=== PATIENT | female | born 1965 | race Caucasian/White ===

== ENCOUNTER 2017-07-03 00:50 | Emergency (ER) | payer SELFPAY ==
[2017-07-03] MEDS ORDERED: ASPIRIN 81 MG TABLET, CHEWABLE PO ONE (01:15)
[2017-07-03] MEDS ORDERED: FENTANYL CITRATE INJ/PF 100 MCG/2 ML AMPUL IV ONE (01:15)
[2017-07-03] MEDS ORDERED: DIAZEPAM INJ 10 MG/2 ML DISP.SYRIN IV ONE (01:15)
[2017-07-03] MEDS ORDERED: ONDANSETRON 4 MG TAB.RAPDIS PO ONE (01:16)
--- NOTE | 2017-07-03 01:22 | ER Document Report ---
ED Cardiac - General Chief Complaint: Chest Pain Stated Complaint: CHEST PAIN Time Seen by Provider: 07/03/17 01:15 Mode of Arrival: Carried Information source: Patient Notes: History of present illnes-52 years old female while mom being developed pain over the left side of the chest wall which include left anterior chest wall left upper back and left arm associated with on and off numbness and tingling sensation. Denied any nausea vomiting palpitation or diaphoresis. Called the EMS and came to the ER. She has a history of fibromyalgia take [place]. REVIEW OF SYSTEMS: CONSTITUTIONAL : Denies fever, chills, or sweats. Denies recent illness. EENT: Denies eye, ear, throat, or mouth pain or symptoms. Denies nasal or sinus congestion or discharge. Denies throat, tongue, or mouth swelling or difficulty swallowing. CARDIOVASCULAR: Denies chest pain. Denies palpitations or racing or irregular heart beat. Denies ankle edema. RESPIRATORY: Denies cough, cold, or chest congestion. Denies shortness of breath, difficulty breathing, or wheezing. GASTROINTESTINAL: Denies abdominal pain or distention. Denies nausea, vomiting , or diarrhea. Denies blood in vomitus, stools, or per rectum. Denies black, tarry stools. Denies constipation. GENITOURINARY: Denies difficulty urinating, painful urination, burning, frequency, blood in urine, or discharge. FEMALE GENITOURINARY: Denies vaginal bleeding, heavy or abnormal periods, irregular periods. Denies vaginal discharge or odor. MUSCULOSKELETAL: Denies back or neck pain or stiffness. Denies joint pain or swelling. SKIN: Denies rash, lesions or sores. HEMATOLOGIC : Denies easy bruising or bleeding. LYMPHATIC: Denies swollen, enlarged glands. NEUROLOGICAL: Denies confusion or altered mental status. Denies passing out or loss of consciousness. Denies dizziness or lightheadedness. Denies headache. Denies weakness or paralysis or loss of use of either side. Denies problems with gait or speech. Denies sensory loss, numbness, or tingling. Denies seizures. PSYCHIATRIC: Denies anxiety or stress. Denies depression, suicidal ideation, or homicidal ideation. ALL OTHER SYSTEMS REVIEWED AND NEGATIVE. PHYSICAL EXAMINATION: GENERAL: Well-appearing, well-nourished and in no acute distress. HEAD: Atraumatic, normocephalic. EYES: Pupils equal round and reactive to light, extraocular movements intact, conjunctiva are normal. ENT: Nares patent, oropharynx clear without exudates. Moist mucous membranes. NECK: Normal range of motion, supple without lymphadenopathy LUNGS: Breath sounds clear to auscultation bilaterally and equal. No wheezes rales or rhonchi. HEART: Regular rate and rhythm without murmurs Chest wall-diffuse chest wall tenderness noted along the left trapezoid muscle distribution, subscapular muscular region to. The tenderness progressed to the anterior chest wall involving the upper sternocostal joints. Lifting of left arm increases the pain and discomfort. Even with medium strength of palpation the pain was severe in nature. ABDOMEN: Soft, nontender, nondistended abdomen. No guarding, no rebound. No masses appreciated. Female : deferred Musculoskeletal: Normal range of motion, no pitting or edema. No cyanosis. NEUROLOGICAL: Cranial nerves grossly intact. Normal speech, normal gait. Normal sensory, motor exams PSYCH: Normal mood, normal affect. SKIN: Warm, Dry, normal turgor, no rashes or lesions noted. Dictation was performed using [email or web address] voice recognition software - Related Data Allergies/Adverse Reactions: aspirin Allergy (Unknown, Verified 07/03/17 01:27) cephalexin [From Keflex] Allergy (Unknown, Verified 07/03/17 01:27) Past Medical History - General Information source: Patient - Social History Smoking Status: Current Every Day Smoker Cigarette use (# per day): No Chew tobacco use (# tins/day): No Frequency of alcohol use: Rare Drug Abuse: None Lives with: Family Family History: Reviewed & Not Pertinent Patient has suicidal ideation: No Past Surgical History: Reports: None Review of Systems - Review of Systems Notes: As per history of complain Course - Re-evaluation Re-evalutation: 07/03/17 03:15 Given Valium as well as fentanyl - Laboratory Result Diagrams: 07/03/17 00:23 07/03/17 00:23 Laboratory results interpreted by me: 07/03/17 07/03/17 00:23 00:23 WBC 11.2 H Potassium 3.4 L Glucose 342 H Alkaline Phosphatase 164 H - Diagnostic Test Radiology reviewed: Reports reviewed - Chest x-ray reported by radiologist as normal. - EKG Interpretation by Me EKG shows normal: Sinus rhythm Rate: Normal Rhythm: NSR - Sinus rhythm at the rate of 80 bpm normal axis no acute ST elevation ST depression T-wave inversion. Normal cardiogram Discharge - Discharge Clinical Impression: Chest wall pain Trapezius strain Qualifiers: Encounter type: initial encounter Laterality: left Qualified Code(s): S46.812A - Strain of other muscles, fascia and tendons at shoulder and upper arm level, left arm, initial encounter Condition: Fair Disposition: HOME, SELF-CARE Instructions: Chest Wall Pain ([facility]) Prescriptions: Diazepam [Valium 2 mg Tablet] 2 mg PO BID PRN #10 tablet PRN Reason: Hydrocodone/Acetaminophen [[place] 10-325 Tablet] 1 each PO TID PRN #10 tablet PRN Reason:
[2017-07-03 01:25] LABS: ABSOLUTE EOSINOPHILS # (AUTO) 0.2 10^3/uL (0.0-0.6); ABSOLUTE LYMPHOCYTES (AUTO) 2.5 10^3/uL (0.5-4.7); ABSOLUTE MONOCYTES (AUTO) 0.5 10^3/uL (0.1-1.4); BASOPHILS % (AUTO) 0.4 % (0-2); HEMATOCRIT 40.8 % (36.0-47.0); HEMOGLOBIN 13.9 g/dL (12.0-15.5); LYMPHOCYTES % (AUTO) 22.3 % (13-45); MEAN CORPUSCULAR HEMOGLOBIN 27.4 pg (27.0-33.4); MEAN CORPUSCULAR VOLUME 81 fl (80-97); MONOCYTES % (AUTO) 4.1 % (3-13); PLATELET COUNT 207 10^3/uL (150-450); RED BLOOD COUNT 5.06 10^6/uL (3.72-5.28); RED CELL DISTRIBUTION WIDTH 13.3 % (11.5-14.0); SEGMENTED NEUTROPHILS % (AUTO) 71.2 % (42-78); TOTAL CELLS COUNTED % (AUTO) 100 %; WHITE BLOOD COUNT 11.2 10^3/uL (4.0-10.5)
[2017-07-03 01:40] LABS: ALANINE AMINOTRANSFERASE 28 U/L (9-52); ALBUMIN 4.3 g/dL (3.5-5.0); ALKALINE PHOSPHATASE 164 U/L (38-126); ANION GAP 13 (5-19); ASPARTATE AMINO TRANSFERASE 17 U/L (14-36); BILIRUBIN,DIRECT 0.3 mg/dL (0.0-0.4); BILIRUBIN,TOTAL 0.4 mg/dL (0.2-1.3); BLOOD UREA NITROGEN 17 mg/dL (7-20); CALCIUM 9.7 mg/dL (8.4-10.2); CARBON DIOXIDE 25 mmol/L (22-30); CHLORIDE 101 mmol/L (98-107); CREATINE KINASE 80 U/L (30-135); GLUCOSE 342 mg/dL (75-110); POTASSIUM 3.4 mmol/L (3.6-5.0); SODIUM 139.2 mmol/L (137-145); TOTAL PROTEIN 7.2 g/dL (6.3-8.2)
[2017-07-03 01:52] LABS: CREATINE KINASE MB 0.79 ng/mL (<4.55); TROPONIN I < 0.012 ng/mL
--- NOTE | 2017-07-03 02:30 | RADIOLOGY REPORT (SQ) ---
EXAM DESCRIPTION: CHEST SINGLE VIEW CLINICAL HISTORY: 52 years Female, Chest pain COMPARISON: None. NUMBER OF VIEWS/TECHNIQUE: 1/AP LIMITATIONS: None. FINDINGS: Normal lung volume, clear parenchyma, normal cardiac silhouette, and intact bony thorax. IMPRESSION: No acute cardiopulmonary findings.
[2017-07-03 04:24] VITALS: BP 157/73
--- NOTE | 2017-07-03 07:43 | EKG REPORT ---
SEVERITY:- ABNORMAL ECG - SINUS RHYTHM POOR R [place]AV[place] PROGRESSION ANTERIOR PRECORDIAL LEADS ? LEAD PLACEMENT VS OLD NE, NO OLD EKG TO COMPARE, CLINICAL CORRELATION NEEDED. : Confirmed by: Armen Iverson MD 03-Jul-2017 07:42:41
== END 2017-07-03 03:30 | disposition home or self-care (01) ==
LOC: ER 00:50
DX: S46.812A Strain of other muscles, fascia and tendons at shoulder and upper arm level, left arm, initial encounter (principal); R07.89 Other chest pain; M54.6 Pain in thoracic spine; M79.602 Pain in left arm; M79.7 Fibromyalgia; Z79.899 Other long term (current) drug therapy; F17.200 Nicotine dependence, unspecified, uncomplicated; X58.XXXA Exposure to other specified factors, initial encounter
CPT/HCPCS: 93005; 99285; 96374; 96375; 36415; 82553; 82550; 85025; 80053; 84484; 71045; 93010; J3360; S0119; J3010

== ENCOUNTER 2017-07-12 21:22 | Emergency (ER) | payer SELFPAY ==
--- NOTE | 2017-07-12 21:29 | ER Document Report ---
ED Medical Screen (RME) - General Mode of Arrival: Medic Information source: Relative - , Emergency Med Personnel TRAVEL OUTSIDE OF THE [place] IN LAST 30 DAYS: No <ABRAHAM RIVERS - Last Filed: 07/13/17 00:13> <JORGE ALBERTO VALERIO - Last Filed: 07/13/17 00:14> - General Chief Complaint: S/S of Possible Stroke Stated Complaint: POSSIBLE STROKE Time Seen by Provider: 07/12/17 21:24 Notes: 52 y.o female presents to the ED via EMS s/p collapse onto at home. reported that she has falled/collapsed in the past due to her BGL but it has never been this bad before. EMS reports a BGL of 345. (ABRAHAM RIVERS) - Related Data Allergies/Adverse Reactions: aspirin Allergy (Unknown, Verified 07/03/17 01:27) cephalexin [From Keflex] Allergy (Unknown, Verified 07/03/17 01:27) Past Medical History - General Information source: Relative Neurological Medical History: Reports: Hx Seizures Renal/ Medical History: Denies: Hx Peritoneal Dialysis Past Surgical History: Reports: Hx Section <ABRAHAM RIVERS - Last Filed: 07/13/17 00:13> Review of Systems - Review of Systems Constitutional: See HPI - Collapsed Neurological/Psychological: See HPI, Other - collapsed, "similar to when her BGL is low but worse" <ABRAHAM RIVERS - Last Filed: 07/13/17 00:13> Physical Exam <ABRAHAM RIVERS - Last Filed: 07/13/17 00:13> <JORGE ALBERTO VALERIO - Last Filed: 07/13/17 00:14> - Vital signs Vitals: Resp BP Pulse Ox 21 H 197/99 H 93 07/12/17 21:41 07/12/17 21:41 07/12/17 21:41 - Notes Notes: Pt maintaining airway, no respiratory distress, tongue midline. (ABRAHAM RIVERS ) Course - Laboratory Result Diagrams: 07/12/17 22:00 07/12/17 22:00 <ABRAHAM RIVERS - Last Filed: 07/13/17 00:13> - Laboratory Result Diagrams: 07/12/17 22:00 07/12/17 22:00 <JORGE ALBERTO VALERIO - Last Filed: 07/13/17 00:14> - Re-evaluation Re-evalutation: 07/13/17 00:14 Patient examined from the stretcher on her way to CAT scan, maintaining her airway well, no evidence of impending airway collapse. Sent to CAT scan, further evaluation will be performed by primary physician after CAT scan completed. (JORGE ALBERTO VALERIO) - Vital Signs Vital signs: Temp Pulse Resp BP Pulse Ox 81 18 161/109 H 98 07/12/17 23:00 07/12/17 23:11 07/12/17 23:11 07/12/17 23:11 - Laboratory Laboratory results interpreted by me: 07/12/17 07/12/17 22:00 22:00 WBC 11.9 H RBC 5.39 H Absolute Neutrophils 8.5 H Potassium 3.3 L Glucose 334 H Doctor's Discharge <ABRAHAM RIVERS - Last Filed: 07/13/17 00:13> <JORGE ALBERTO VALERIO - Last Filed: 07/13/17 00:14> - Discharge Clinical Impression: Acute ischemic stroke Condition: Critical Disposition: [facility] Scribe Documentation - Scribe Written by Scribe:: Johnie Lennon 07/12/2017 2221 acting as scribe for :: Keli <ABRAHAM RIVERS - Last Filed: 07/13/17 00:13>
[2017-07-12] MEDS ORDERED: LABETALOL HCL INJ 20 MG/4 ML DISP.SYRIN IV ONE (21:38)
--- NOTE | 2017-07-12 21:50 | RADIOLOGY REPORT (SQ) ---
EXAM DESCRIPTION: CT HEAD WITHOUT COMPLETED DATE/TIME: 07/12/2017 9:37 pm REASON FOR STUDY: stroke SXs COMPARISON: None. TECHNIQUE: Axial images acquired through the brain without intravenous contrast. Images reviewed wi th bone, brain and subdural windows. Additional sagittal and coronal reconstructions were generated. Images stored on PACS. All CT scanners at this facility use dose modulation, iterative reconstruction, and/or weight based d osing when appropriate to reduce radiation dose to as low as reasonably achievable (ALARA). [facility]: Dose Right [facility]: CareDose [facility]: Dose Right [facility]: Teradose 4D [facility]: Tellme RADIATION DOSE: mGy. LIMITATIONS: None. FINDINGS: VENTRICLES: Normal size and contour. CEREBRUM: No masses. No hemorrhage. No midline shift. No evidence for acute infarction. Normal gra y/white matter differentiation. No areas of low density in the white matter. CEREBELLUM: No masses. No hemorrhage. No alteration of density. No evidence for acute infarction. EXTRAAXIAL SPACES: No fluid collections. No masses. ORBITS AND GLOBE: No intra- or extraconal masses. Normal contour of globe without masses. CALVARIUM: No fracture. PARANASAL SINUSES: No fluid or mucosal thickening. SOFT TISSUES: No mass or hematoma. OTHER: No other significant finding. IMPRESSION: NORMAL BRAIN CT WITHOUT CONTRAST. EVIDENCE OF ACUTE STROKE: NO. COMMENT: Quality ID # [id number]: Final reports with documentation of one or more dose reduction techniques (e.g., Automated exposure control, adjustment of the mA and/or kV according to patient size, use of iterative reconstruction technique) TECHNICAL DOCUMENTATION: JOB ID: [id number] [employer]- All Rights Reserved Reading location - IP/workstation name: [email or web address]
--- NOTE | 2017-07-12 21:52 | RADIOLOGY REPORT (SQ) ---
EXAM DESCRIPTION: CHEST SINGLE VIEW COMPLETED DATE/TIME: 07/12/2017 9:45 pm REASON FOR STUDY: STROKE SXS COMPARISON: 07/03/2017. EXAM PARAMETERS: NUMBER OF VIEWS: One view. TECHNIQUE: Single frontal radiographic view of the chest acquired. RADIATION DOSE: NA LIMITATIONS: None. FINDINGS: LUNGS AND PLEURA: Suboptimal inspiration. No opacities, masses or pneumothorax. No pleura l effusion. MEDIASTINUM AND HILAR STRUCTURES: No masses. Contour normal. HEART AND VASCULAR STRUCTURES: Heart normal in size. Normal vasculature. BONES: No acute findings. HARDWARE: None in the chest. OTHER: No other significant finding. IMPRESSION: NO ACUTE RADIOGRAPHIC FINDING IN THE CHEST. TECHNICAL DOCUMENTATION: JOB ID: [id number] [employer]- All Rights Reserved Reading location - IP/workstation name: [email or web address]
[2017-07-12] MEDS ORDERED: ALTEPLASE INJ 100 MG VIAL IV ONE (21:55)
--- NOTE | 2017-07-12 21:55 | ER Document Report ---
ED General - General Chief Complaint: S/S of Possible Stroke Stated Complaint: POSSIBLE STROKE Time Seen by Provider: 07/12/17 21:24 Mode of Arrival: Medic Notes: Is a 52-year-old lady with multiple stroke risk factors including diabetes and hypertension noncompliant with her medications for the past month per her , Who was last seen normal approximately 5:30 PM before taking a nap. At around 8:30 PM she walked out of the bathroom with a blank stare on her face and collapsed in her 's arms. She did not lose consciousness but was not talking. Per EMS she had left-sided weakness of the arm and leg. Blood sugar was elevated in the mid 300s and she was significantly hypertensive. She complained of headache earlier today. Further history is unavailable. I have picked up the patient after she was already in the CT scanner as a stroke alert. TRAVEL OUTSIDE OF THE [place] IN LAST 30 DAYS: No - Related Data Allergies/Adverse Reactions: aspirin Allergy (Unknown, Verified 07/03/17 01:27) cephalexin [From Keflex] Allergy (Unknown, Verified 07/03/17 01:27) Past Medical History - General Information source: Relative - Social History Smoking Status: Current Every Day Smoker Family History: Reviewed & Not Pertinent Neurological Medical History: Reports: Hx Seizures Renal/ Medical History: Denies: Hx Peritoneal Dialysis Past Surgical History: Reports: Hx Section Review of Systems - Review of Systems Notes: REVIEW OF SYSTEMS Not obtained secondary to altered mental status PHYSICAL EXAMINATION General: No acute distress, well-nourished Head: Atraumatic, normocephalic ENT: Mouth normal, oropharynx dry, no exudates or tonsillar enlargement Eyes: Conjunctiva normal, pupils equal, lids normal Neck: No JVD, supple, no guarding CVS: Normal rate, regular rhythm, no murmurs Resp: No resp distress, equal and normal breath sounds bilaterally GI: Nondistended, soft, no tenderness to palpation, no rebound or guarding Ext: No deformities, no edema, normal range of motion in upper and lower ext Back: No CVA or midline TTP Skin: No rash, warm Lymphatic: No lymphadeopathy noted Neuro: Slightly sleepy. Arouses to voice. Subtle nasolabial fold flattening on the left, tongue is midline, minimal left arm effort against gravity, slightly more on the left leg but still decreased. Sensation intact no extinction. Subtle left visual field cut. Quiet voice but no dysarthria. Naming is intact. No extinction. Extraocular movements are intact. NIH stroke score is 7. Physical Exam - Vital signs Vitals: Resp BP Pulse Ox 21 H 197/99 H 93 07/12/17 21:41 07/12/17 21:41 07/12/17 21:41 Course - Re-evaluation Re-evalutation: Patient presents with signs and symptoms of right MCA territory ischemic stroke. Her NIH stroke score on my evaluation is 7. In looking at her head CT I do not see a hemorrhage but I do see a right dense MCA sign. I have not heard from radiology. I had a brief discussion with her about the risks and benefits of TPA. Unfortunately, it has been about 4.5 hours since she was last seen normal. Her blood pressure is significantly elevated in the 200s. I ordered a single dose of labetalol. CT is read negative acute. 07/12/17 22:05 It is now 10:05, because of delays in obtaining consent for TPA, and the 's in decision, he finally made his choice about 5 minutes ago we are now 5 minutes past the window for TPA and he says he is 100% sure about the last seen normal time of 5:30 PM. At this point I think the risks outweigh the benefits of TPA and the patient is no longer a candidate. Will be admitted ICU and hospitalist service. Ordered aspirin and cancel TPA. Charge nurse made aware. 07/12/17 22:15 Paged [facility] at 10:10 PM for transfer to higher level of care and possible interventional stroke treatment 07/12/17 22:16 Patient is allergic to aspirin for her family's this was ordered but then asked to be withheld. We will withhold anticoagulation such as heparin drip until I speak with neuro. Spoke with , spoke with daughters. EKG is normal. Labs are pending. 07/12/17 23:19 Discussed with family again. Discussed with Dr. Ferreira at [facility] who accepted. Chemistries appear normal other labs are pending. INR is normal. Blood pressure is controlled. [facility] is here to strip picker the patient. - Vital Signs Vital signs: Temp Pulse Resp BP Pulse Ox 84 18 161/109 H 98 07/12/17 22:30 07/12/17 23:11 07/12/17 23:11 07/12/17 23:11 - Laboratory Result Diagrams: 07/12/17 22:00 07/12/17 22:00 Laboratory results interpreted by me: 07/12/17 22:00 Potassium 3.3 L Glucose 334 H - Diagnostic Test Radiology reviewed: Image reviewed, Reports reviewed - EKG Interpretation by Me EKG shows normal: Sinus rhythm Rate: Normal Rhythm: NSR When compared to previous EKG there are: Previous EKG unavailable - No acute ischemic change Critical Care Note - Critical Care Note Total time excluding time spent on procedures (mins): 72 Comments: The above patient is critically ill. Not including procedures, but including direct re-evaluations, speaking with patient and/or consultants, interpreting results, and documenting, I spent the total amount of minute listed listed above on critical care time Discharge - Discharge Clinical Impression: Acute ischemic stroke Condition: Critical Disposition: [facility]
[2017-07-12] MEDS ORDERED: ASPIRIN 325 MG TABLET PO ONE (21:59)
[2017-07-12] MEDS ORDERED: NICARDIPINE HCL RTU, ISO-OS 20 MG/200 ML RTUINJ IV PRN (21:59)
[2017-07-12] MEDS ORDERED: NORMAL SALINE 500 ML IV ONE (22:38)
[2017-07-12] MEDS ORDERED: FENTANYL CITRATE INJ/PF 100 MCG/2 ML AMPUL IV ONE (22:39)
[2017-07-12 22:40] LABS: INTERNATIONAL RATION (INR) 0.88
[2017-07-12 22:43] LABS: PROTHROMBIN TIME 12.4 SEC (11.4-15.4)
[2017-07-12 22:45] LABS: ANION GAP 10 (5-19); BLOOD UREA NITROGEN 15 mg/dL (7-20); CALCIUM 9.6 mg/dL (8.4-10.2); CARBON DIOXIDE 29 mmol/L (22-30); CHLORIDE 99 mmol/L (98-107); GLUCOSE 334 mg/dL (75-110); POTASSIUM 3.3 mmol/L (3.6-5.0); SODIUM 137.9 mmol/L (137-145)
[2017-07-12 23:16] VITALS: BP 161/109
[2017-07-12 23:36] LABS: ABSOLUTE EOSINOPHILS # (AUTO) 0.2 10^3/uL (0.0-0.6); ABSOLUTE LYMPHOCYTES (AUTO) 2.7 10^3/uL (0.5-4.7); ABSOLUTE MONOCYTES (AUTO) 0.5 10^3/uL (0.1-1.4); ABSOLUTE NEUT (AUTO) 8.5 10^3/uL (1.7-8.2); BASOPHILS % (AUTO) 0.4 % (0-2); HEMATOCRIT 43.5 % (36.0-47.0); HEMOGLOBIN 14.8 g/dL (12.0-15.5); LYMPHOCYTES % (AUTO) 22.2 % (13-45); MEAN CORPUSCULAR HEMOGLOBIN 27.4 pg (27.0-33.4); MEAN CORPUSCULAR HGB CONC 33.9 g/dL (32.0-36.0); MEAN CORPUSCULAR VOLUME 81 fl (80-97); PLATELET COUNT 219 10^3/uL (150-450); RED BLOOD COUNT 5.39 10^6/uL (3.72-5.28); RED CELL DISTRIBUTION WIDTH 13.3 % (11.5-14.0); SEGMENTED NEUTROPHILS % (AUTO) 71.4 % (42-78); TOTAL CELLS COUNTED % (AUTO) 100 %; WHITE BLOOD COUNT 11.9 10^3/uL (4.0-10.5)
--- NOTE | 2017-07-14 07:33 | EKG REPORT ---
SEVERITY:- BORDERLINE ECG - SINUS RHYTHM BORDERLINE PROLONGED QT INTERVAL : Confirmed by: Armen Iverson MD 14-Jul-2017 07:33:32
--- NOTE | 2017-07-14 07:33 | EKG REPORT ---
SEVERITY:- BORDERLINE ECG - SINUS RHYTHM PROBABLE LEFT ATRIAL ABNORMALITY BORDERLINE PROLONGED QT INTERVAL : Confirmed by: Armen Iverson MD 14-Jul-2017 07:33:12
== END 2017-07-12 23:25 | disposition short-term general hospital (02) ==
LOC: ER 21:22
DX: I63.9 Cerebral infarction, unspecified (principal); G81.91 Hemiplegia, unspecified affecting right dominant side; I10 Essential (primary) hypertension; E11.65 Type 2 diabetes mellitus with hyperglycemia; Z91.14 Patient's other noncompliance with medication regimen; F17.200 Nicotine dependence, unspecified, uncomplicated; Z88.6 Allergy status to analgesic agent; Z88.1 Allergy status to other antibiotic agents
CPT/HCPCS: 93005; 99291; 96374; 96375; 36415; 85025; 85610; 80048; 71045; 70450; 93010; J3010; J3490; J7040

== ENCOUNTER 2017-07-24 18:39 | Emergency (ER) | payer SELFPAY ==
[2017-07-24 19:04] LABS: ABSOLUTE BASOPHILS # (AUTO) 0.1 10^3/uL (0.0-0.2); ABSOLUTE EOSINOPHILS # (AUTO) 0.2 10^3/uL (0.0-0.6); ABSOLUTE LYMPHOCYTES (AUTO) 2.4 10^3/uL (0.5-4.7); ABSOLUTE MONOCYTES (AUTO) 0.4 10^3/uL (0.1-1.4); ABSOLUTE NEUT (AUTO) 5.8 10^3/uL (1.7-8.2); BASOPHILS % (AUTO) 0.9 % (0-2); EOSINOPHILS % (AUTO) 2.6 % (0-6); HEMATOCRIT 39.6 % (36.0-47.0); HEMOGLOBIN 13.6 g/dL (12.0-15.5); LYMPHOCYTES % (AUTO) 26.9 % (13-45); MEAN CORPUSCULAR HEMOGLOBIN 27.8 pg (27.0-33.4); MEAN CORPUSCULAR HGB CONC 34.4 g/dL (32.0-36.0); MEAN CORPUSCULAR VOLUME 81 fl (80-97); MONOCYTES % (AUTO) 4.6 % (3-13); PLATELET COUNT 208 10^3/uL (150-450); RED BLOOD COUNT 4.91 10^6/uL (3.72-5.28); RED CELL DISTRIBUTION WIDTH 13.4 % (11.5-14.0); TOTAL CELLS COUNTED % (AUTO) 100 %; WHITE BLOOD COUNT 8.9 10^3/uL (4.0-10.5)
--- NOTE | 2017-07-24 19:05 | ER Document Report ---
ED General - General Information source: Patient, Relative TRAVEL OUTSIDE OF THE [place] IN LAST 30 DAYS: No <ABRAHAM RIVERS - Last Filed: 07/24/17 19:36> <JUHI COLVIN - Last Filed: 07/24/17 23:02> - General Stated Complaint: WEAKNESS Time Seen by Provider: 07/24/17 18:57 Notes: 52 y.o female with a PMHx of HTN and DM presents to the ED s/p fall for weakness. at bedside states that toay she was complaining of CP and that she received some bad news today and was walking outside to talk to him and fell as he was walking over to him. He states that by the time he ran over to her she was barely opening her eyes and was barely speaking and talking in a whisper. Pt was here on July 12 for similar symptoms, including a collapse followed by weakness and trouble speaking. She was sent to [facility] where the patient's states they found a small blockage in the brain and small blockage in her heart as well as a larger blockage or narrowing of her carotid. He states that the doctor at [facility] wanted to preform a stress test prior to surgery and she did not want the stress test and left AMA. Pt complains of pain to her LT neck, LT chest and LT shoulder and upper extremity. She denied any heavy lifting causing her pain. (ABRAHAM RIVERS) This 52-year-old female patient comes emergency room for possible stroke. Spouse reports that she got some bad news about her son and grandson, was walking over to the house next door where he was working and she fell out. She was seen here on 07/12/2017 with similar symptoms where she walked out of a bathroom with a blank stare and fell into his arms. She was seen in emergency room and felt to have an NIH score of 7 with left-sided motor weakness. She was just outside the TPA window, so was transferred to [facility]. She reports her symptoms cleared up after about 1-1/2 days. By history MRI was negative for stroke, but showed "a blockage in the brain, a blockage in the heart" and she reportedly had blockages in both carotid arteries with the left carotid being the worst. They further report that the doctors wanted to do surgery on the carotid artery, but wanted her to have a stress test first. She did not want to do this and left AMA. No medications or prescriptions were given. The patient is supposed to be on metformin, glimepiride, Zocor, Lexapro, Ativan. She has not been on any medications and well over a month. She states she left her medicines on top of refrigerator in [place] when they decided to move up here over a month ago. She also reports that 8 years ago she was diagnosed with uterine cancer and did nothing about it but decides that living here she is close enough to [place] to take care of the cancer. She continues to be a heavy smoker. The patient and the spouse both report that on arrival her symptoms are much better than they were when he first found her on the ground. Initial exam shows poor effort on the left side secondary to tenderness in the left trapezius and scapular muscles, does not appear to be a left-sided muscle weakness. The patient's blood sugar is 125 with a hemoglobin A1c of 13.5 Over the next 30-45 minutes the patient's symptoms continue to improve. For the above-noted reasons, the patient is not a TPA candidate. (JUHI COLVIN ) - Related Data Allergies/Adverse Reactions: aspirin Allergy (Unknown, Verified 07/03/17 01:27) cephalexin [From Keflex] Allergy (Unknown, Verified 07/03/17 01:27) Past Medical History - General Information source: Patient - Social History Smoking Status: Current Every Day Smoker Smoking Education Provided: Yes Lives with: Family Family History: Reviewed & Not Pertinent Neurological Medical History: Reports: Hx Seizures Endocrine Medical History: Reports: Hx Diabetes Mellitus Type 2 Renal/ Medical History: Denies: Hx Peritoneal Dialysis Past Surgical History: Reports: Hx Section <ABRAHAM RIVERS - Last Filed: 07/24/17 19:36> Review of Systems - Review of Systems Constitutional: See HPI, Weakness - with fall EENT: No symptoms reported Cardiovascular: See HPI, Chest pain Respiratory: No symptoms reported Gastrointestinal: No symptoms reported Genitourinary: No symptoms reported Female Genitourinary: No symptoms reported Musculoskeletal: Neck pain, Other - LT shouder and LUE pain Skin: No symptoms reported Hematologic/Lymphatic: No symptoms reported Neurological/Psychological: See HPI, Weakness, Other - fall, barely opening eyes and trouble speaking in whispers -: Yes All other systems reviewed and negative <ABRAHAM RIVERS - Last Filed: 07/24/17 19:36> Physical Exam <ABRAHAM RIVERS - Last Filed: 07/24/17 19:36> <JUHI COLVIN - Last Filed: 07/24/17 23:02> - Vital signs Vitals: Pulse Resp BP Pulse Ox 93 18 150/98 H 98 07/24/17 18:41 07/24/17 18:41 07/24/17 18:41 07/24/17 18:41 - Notes Notes: General: Alert and orientated. Depressed. HEENT: Normocephalic. Atraumatic. PERRL. Extraocular movements intact. Oropharynx clear. Neck: Supple. No bruits. Respiratory: No respiratory distress. Clear and equal breath sounds bilaterally. Cardiovascular: Regular rate and rhythm. Abdominal: Obese, soft. Non-tender. No distension. Normal Bowel Sounds. Back: Non-tender. No deformity or step off. Extremities: LT trapezius exquisitely tender to palpation. Pt does not want to lift left arm or use LT sided muscles due to pain, not weakness. Will not try to lift LT leg or plantar flex LT foot. Moves RT sided extremities without trouble. Good plantar flexion to RT foot. Neurological: Normal cognition. AAOx4. Speech is clear. No sensory changes. Full motion to face, cranial nerves II-XII intact. Psychological: Normal affect. Normal Mood. Skin: Warm. Dry. Normal color. (ABRAHAM RIVERS) Course - Laboratory Result Diagrams: 07/24/17 18:52 07/24/17 18:52 <ABRAHAM RIVERS - Last Filed: 07/24/17 19:36> - Laboratory Result Diagrams: 07/24/17 18:52 07/24/17 18:52 - Diagnostic Test Radiology reviewed: Reports reviewed - CT scan of the brain is unremarkable. - EKG Interpretation by Me EKG shows normal: Sinus rhythm, [place], QRS Complexes, ST-T Waves. abnormal: Intervals - Borderline prolonged QT interval Rate: Normal - 92 Rhythm: NSR <JUHI COLVIN - Last Filed: 07/24/17 23:02> - Re-evaluation Re-evalutation: 07/24/17 22:41 NIH scale is 3, however this is quite unreliable because the patient will not squeeze with her left hand very hard, she will not attempt to hold her arm up for any length of time all because of the pain that results from trying to do this activity. The left trapezius muscle is quite tender and these activities cannot be done without using those muscles. Further she will not use her left lower extremity due to the pain in her upper back and shoulder region on the left when she tries to lift and use that leg. 07/24/17 22:42 The patient's A1c is 13.9, blood sugars 425 07/24/17 22:45 Due to all the confounding factors, including what appear to be psychological or psychiatric issues, the pain caused by movement on the left side of the body , and the resolving symptoms with the prior presentation that this essentially found no evidence of stroke, it is nearly impossible to say for fact that this was a neurological event today. 07/24/17 22:51 I reviewed the findings with the patient and her spouse. They both report that when she was at [facility], doctors wanted to do surgery on her left carotid artery within the next 2 weeks. She also states that when living in [place] she was told aspirin makes her vomit, and she was told that it can eat a whole in the stomach lining. She was on enteric-coated aspirin when she was living in [place]. She has an appointment with the [facility] to establish as a patient. I advised the patient and her spouse that I will write a prescription for oral hypoglycemic medication, and recommend that she take a full enteric-coated aspirin daily. They should call the doctor's at [facility] to discuss getting back into the system to have the surgery that she is supposed to get. (JUHI COLVIN ) - Vital Signs Vital signs: Temp Pulse Resp BP Pulse Ox 93 10 L 150/98 H 96 07/24/17 18:41 07/24/17 20:00 07/24/17 18:41 07/24/17 20:00 - Laboratory Laboratory results interpreted by me: 07/24/17 07/24/17 07/24/17 18:52 18:52 18:52 PT 11.3 L Sodium 136.5 L Glucose 425 H* POC Glucose Hemoglobin A1c % 13.5 H Direct Bilirubin 0.5 H Alkaline Phosphatase 151 H Total Protein 6.2 L 07/24/17 18:56 PT Sodium Glucose POC Glucose 429 H* Hemoglobin A1c % Direct Bilirubin Alkaline Phosphatase Total Protein Discharge <SILVESTREABRAHAM - Last Filed: 07/24/17 19:36> <VINICIUSJUHI - Last Filed: 07/24/17 23:02> - Discharge Clinical Impression: Weakness of left side of body Uncontrolled diabetes mellitus Qualifiers: Diabetes mellitus type: type 2 Diabetes mellitus rat exterminator insulin use: without rat exterminator use Diabetes mellitus complication status: with unspecified complications Qualified Code(s): E11.8 - Type 2 diabetes mellitus with unspecified complications Strain of left trapezius muscle Qualifiers: Encounter type: initial encounter Qualified Code(s): S46.812A - Strain of other muscles, fascia and tendons at shoulder and upper arm level, left arm, initial encounter TIA (transient ischemic attack) Qualifiers: Transient cerebral ischemia type: unspecified Qualified Code(s): G45.9 - Transient cerebral ischemic attack, unspecified Condition: Stable Disposition: HOME, SELF-CARE Additional Instructions: Your symptoms today are suspicious for transient ischemic attack. They may have been related to emotional stress and not a neurological event. Your left-sided weakness seems to be more due to pain on moving the left side and less due to a neurological event. You remain at high risk for stroke however due to your smoking history, uncontrolled diabetes, and reported carotid artery disease. Take Tylenol for the muscle pain and try moist heat to the painful muscles between your neck and shoulder. Limit using the left arm for a few days until the muscles are not quite as sore. Take the medications as prescribed for your diabetes. Take 1 full strength enteric-coated aspirin daily. Call your doctors down at [facility] to discuss getting back into the system to have the surgery on your carotid artery that you report that they wanted to do. Try to reduce or totally quit smoking. Follow-up with the [facility] for management of all of your medical problems. RETURN TO THE EMERGENCY ROOM IF ANY NEW OR WORSENING SYMPTOMS. Prescriptions: Glimepiride 2 mg PO ASDIR PRN #30 tablet PRN Reason: Metformin HCl 1,000 mg PO BID #60 tablet Referrals: [facility] [Outside] - Follow up in 1 week Scribe Attestation: 07/24/17 22:58 I personally performed the services described in the documentation, reviewed and edited the documentation which was dictated to the scribe in my presence, and it accurately records my words and actions. (JUHI COLVIN) Scribe Documentation - Scribe Written by Johnie:: Johnie Lennon [id number] acting as scribe for :: Vinicius <ABRAHAM RIVERS - Last Filed: 07/24/17 19:36>
[2017-07-24] MEDS ORDERED: LORAZEPAM INJ 2 MG/1 ML VIAL IV ONE (19:06)
[2017-07-24] MEDS ORDERED: MORPHINE SULFATE 10 MG/ML INJ IV ONE (19:07)
--- NOTE | 2017-07-24 19:07 | RADIOLOGY REPORT (SQ) ---
EXAM DESCRIPTION: CT HEAD WITHOUT COMPLETED DATE/TIME: 07/24/2017 6:49 pm REASON FOR STUDY: stroke alert L weakness difficulty swallowing COMPARISON: 07/12/2017 TECHNIQUE: Axial images acquired through the brain without intravenous contrast. Images reviewed wi th bone, brain and subdural windows. Additional sagittal and coronal reconstructions were generated. Images stored on PACS. All CT scanners at this facility use dose modulation, iterative reconstruction, and/or weight based d osing when appropriate to reduce radiation dose to as low as reasonably achievable (ALARA). [facility]: Dose Right [facility]: CareDose [facility]: Dose Right [facility]: Teradose 4D [facility]: Filter Squad RADIATION DOSE: mGy. LIMITATIONS: None. FINDINGS: VENTRICLES: Normal size and contour. CEREBRUM: No masses. No hemorrhage. No midline shift. No evidence for acute infarction. Normal gra y/white matter differentiation. No areas of low density in the white matter. CEREBELLUM: No masses. No hemorrhage. No alteration of density. No evidence for acute infarction. EXTRAAXIAL SPACES: No fluid collections. No masses. ORBITS AND GLOBE: No intra- or extraconal masses. Normal contour of globe without masses. CALVARIUM: No fracture. PARANASAL SINUSES: A mucous retention cyst is present in the right maxillary sinus. SOFT TISSUES: No mass or hematoma. OTHER: No other significant finding. IMPRESSION: 1. NORMAL BRAIN CT WITHOUT CONTRAST. 2. RIGHT MAXILLARY SINUS DISEASE. EVIDENCE OF ACUTE STROKE: NO. COMMENT: The findings were discussed with Dr. Berg at 1856 hours on this date. Quality ID # [id number]: Final reports with documentation of one or more dose reduction techniques (e.g., Au tomated exposure control, adjustment of the mA and/or kV according to patient size, use of iterative reconstruction technique) TECHNICAL DOCUMENTATION: JOB ID: [id number] [employer]- All Rights Reserved Reading location - IP/workstation name: [email or web address]
--- NOTE | 2017-07-24 19:08 | RADIOLOGY REPORT (SQ) ---
EXAM DESCRIPTION: CHEST SINGLE VIEW COMPLETED DATE/TIME: 07/24/2017 6:51 pm REASON FOR STUDY: stroke alert L weakness difficulty swallowing COMPARISON: 07/12/2017 EXAM PARAMETERS: NUMBER OF VIEWS: One view. TECHNIQUE: Single frontal radiographic view of the chest acquired. RADIATION DOSE: NA LIMITATIONS: None. FINDINGS: LUNGS AND PLEURA: Mild chronic interstitial changes are suggested. There is no infiltrate or effusion. There is no mass. MEDIASTINUM AND HILAR STRUCTURES: No masses. Contour normal. HEART AND VASCULAR STRUCTURES: Heart normal in size. Normal vasculature. BONES: No acute findings. HARDWARE: None in the chest. OTHER: No other significant finding. IMPRESSION: Mild chronic interstitial changes with no acute cardiopulmonary disease. TECHNICAL DOCUMENTATION: JOB ID: [id number] [employer]- All Rights Reserved Reading location - IP/workstation name: [email or web address]
[2017-07-24 19:25] LABS: ALANINE AMINOTRANSFERASE 34 U/L (9-52); ALBUMIN 3.6 g/dL (3.5-5.0); ALKALINE PHOSPHATASE 151 U/L (38-126); ANION GAP 12 (5-19); ASPARTATE AMINO TRANSFERASE 23 U/L (14-36); BILIRUBIN,DIRECT 0.5 mg/dL (0.0-0.4); BILIRUBIN,TOTAL 0.5 mg/dL (0.2-1.3); BLOOD UREA NITROGEN 13 mg/dL (7-20); CALCIUM 9.2 mg/dL (8.4-10.2); CARBON DIOXIDE 27 mmol/L (22-30); CHLORIDE 98 mmol/L (98-107); CREATINE KINASE 73 U/L (30-135); POTASSIUM 3.8 mmol/L (3.6-5.0); SODIUM 136.5 mmol/L (137-145); TOTAL PROTEIN 6.2 g/dL (6.3-8.2)
[2017-07-24 19:29] LABS: INTERNATIONAL RATION (INR) 0.78; PARTIAL THROMBOPLASTIN TIME 26.1 SEC (23.5-35.8); PROTHROMBIN TIME 11.3 SEC (11.4-15.4)
[2017-07-24 19:35] LABS: CREATINE KINASE MB 0.57 ng/mL (<4.55)
[2017-07-24 19:37] LABS: GLUCOSE 425 mg/dL (75-110); TROPONIN I < 0.012 ng/mL
[2017-07-24] MEDS ORDERED: INSULIN REG, HUMAN 100 UNIT/ML 3 ML VIAL (PYX) IV ONE (19:54)
--- NOTE | 2017-07-24 21:20 | EKG REPORT ---
SEVERITY:- BORDERLINE ECG - SINUS RHYTHM BORDERLINE PROLONGED QT INTERVAL : Confirmed by: Francis Brand 24-Jul-2017 21:20:13
--- NOTE | 2017-07-24 22:41 | ER Document Report ---
ED NIH Stroke Scale - NIH Stroke Scale *: 1. NIH scale should be completed with appropriate accompanying assessment tools. *: 2. The NIH should reflect what the patient is capable of doing and should not be coached by the clinician. 1a. Level of Consciousness: 0=Alert;keenly responsive -: 1=Drowsy -: 2=Obtunded -: 3=Coma/unresponsive or reflex to noxious stimuli. 1a. Responses: 0 1b. Orientation Questions: a. What month is it? -: b. How old are you? -: 0=Answers both questions correctly. -: 1=Answers one question correctly or patient is intubated or has orotracheal trauma. -: 2=Answers neither question correctly. 1b. Responses: 0 1c. Response to commands: a. Open and close eyes? -: b. Donor Relations Associate and release hand? -: Credit is given despite weakness. Demonstration of task is permitted. Substitute command if hands cannot be used. -: 0=Performs both tasks correctly -: 1=Performs one task correctly -: 2=Performs neither task correctly 1c. Responses: 0 2. Gaze: Establish eye contact and instruct patient to "Follow my finger" -: 0=Normal -: 1=Partial gaze palsy. Gaze is abnormal in one or both eyes, but where forced deviation or total gaze paresis is not present. -: 2=Forced deviation or total gaze paresis. 2. Responses: 0 3. Visual Root: Sees fingers in all four quadrants. -: 0=No visual loss. -: 1=Partial hemianopsia. -: 2=Complete hemianopsia. -: 3=Bilateral hemianopsia (including Cortical blindness) 3. Responses: 0 4. Facial Movement: Instruct patient to: -: a. Show me your teeth -: b. Raise your eyebrows -: c. Close your eyes -: d. Smile -: 0=Normal symmetrical movement -: 1=Minor paralysis (flattened nasolabial fold, asymmetry on smiling). -: 2=Partial paralysis (total or near total paralysis of lower face). -: 3=Complete paralysis of upper and lower face 4. Responses: 1 5. Motor functions (left arm): Alternate sides and extend each arm with palms down (90 degrees if sitting or 45 degrees for supine). -: 0=No drift;limb holds for full 10 seconds. -: 1=Drift; limb holds but drifts down before full 10 seconds, but does not hit bed. -: 2=Some effort against gravity; limb cannot get to or maintain position. -: 3=No effort against gravity; limb falls. -: 4=No movement. -: UN=Amputation, joint fusion, explain in comments. 5. Responses (left arm): 0 5. Motor Functions (right arm): Alternate sides and extend each arm with palms down (90 degrees if sitting or 45 degrees for supine). -: 0=No drift;limb holds for full 10 seconds. -: 1=Drift; limb holds but drifts down before full 10 seconds, but does not hit bed. -: 2=Some effort against gravity; limb cannot get to or maintain position. -: 3=No effort against gravity; limb falls. -: 4=No movement. -: UN=Amputation, joint fusion, explain in comments. 5. Responses (right arm): 0 6. Motor Functions (left leg): With patient lying supine, alternate sides and extend each leg (30 degrees always while supine). -: 0=No drift, leg holds position for full 5 seconds -: 1=Drift; leg falls before full 5 seconds but does not hit bed. -: 2=Some effort against gravity, leg falls to bed but some effort against gravity. -: 3=No effort against gravity, leg falls to bed immediately. -: 4=No movement. -: UN=Amputation, joint fusion; explain in comments. 6. Responses (left leg): 2 6. Motor Functions (right leg): With patient lying supine, alternate sides and extend each leg (30 degrees always while supine). -: 0=No drift, leg holds position for full 5 seconds -: 1=Drift; leg falls before full 5 seconds but does not hit bed. -: 2=Some effort against gravity, leg falls to bed but some effort against gravity. -: 3=No effort against gravity, leg falls to bed immediately. -: 4=No movement. -: UN=Amputation, joint fusion; explain in comments. 6. Responses (right leg): 0 7. Limb Ataxia: With eyes open instruct patient to: -: a. "Touch your finger to your nose". -: b. "Touch your heel to your story" -: 0=Absent -: 1=Present in one limb. -: 2=Present in two limbs. -: UN=Amputation or joint fusion; explain in comments. 7. Responses: 0 8. Sensory: Test sensation using pinprick or noxious stimuli. Test as many body parts as possible. -: 0=Normal;no sensory loss -: 1=Mile to moderate sensory loss (patient feels pin prick but is less sharp on affected side). -: 2=Severe or total sensory loss. 8. Responses: 0 9. Best Language: Instruct patient to: -: a. "Describe what you see in this picture." -: b. "Name the items in this picture." -: c. "Read these sentences." -: 0=No aphasia, normal -: 1=Mild to moderate aphasia. -: 2=Severe aphasia -: 3=Mute, global aphasia, no usable speech or auditory comprehension. 9. Responses: 0 10. Articulation, Dysarthia: Instruct patient to: -: "Read these words" or "Repeat these words" -: 0=Normal -: 1=Mild to moderate; patient may slur some words but can be understood without difficulty. -: 2=Severe; patients speech so slurred as to be unintelligible in the absence of dysphasia. -: UN=Intubated or other physical barrier, explain in comments. 10. Responses: 0 11. Extinction or inattention: 0=No abnormality -: 1= Visual, tactile, auditory, spatial, or personal inattention or extinction to bilateral simulation in one or the sensory modalities. -: 2=Profound faiza-inattention or faiza-inattention to more than one modality; does not recognize own hand. 11. Responses: 0 Total Score: 3
[2017-07-24] MEDS ORDERED: ASPIRIN 81 MG TABLET, CHEWABLE PO ONE (23:02)
[2017-07-24] MEDS ORDERED: MAG HYDROX/AL HYDROX/SIMETH SUSP 30 ML UDCUP PO ONE (23:02)
[2017-07-24] MEDS ORDERED: METFORMIN HCL 500 MG TABLET PO ONE (23:02)
[2017-07-24 23:05] VITALS: BP 128/98
== END 2017-07-24 23:40 | disposition home or self-care (01) ==
LOC: ER 18:39
DX: S46.812A Strain of other muscles, fascia and tendons at shoulder and upper arm level, left arm, initial encounter (principal); R53.1 Weakness; M54.2 Cervicalgia; R07.9 Chest pain, unspecified; G45.9 Transient cerebral ischemic attack, unspecified; E11.8 Type 2 diabetes mellitus with unspecified complications; W18.30XA Fall on same level, unspecified, initial encounter; F17.200 Nicotine dependence, unspecified, uncomplicated; Z88.6 Allergy status to analgesic agent; I10 Essential (primary) hypertension
CPT/HCPCS: 93005; 99285; 96374; 96375; 36415; 82553; 82962; 82550; 85025; 85610; 85730; 80053; 84484; 83036; 71045; 70450; 93010; J2270; J2060; J1815

== ENCOUNTER 2017-08-06 20:34 | Emergency (ER) | payer SELFPAY ==
[2017-08-06 20:51] LABS: ABSOLUTE EOSINOPHILS # (AUTO) 0.2 10^3/uL (0.0-0.6); ABSOLUTE LYMPHOCYTES (AUTO) 2.9 10^3/uL (0.5-4.7); ABSOLUTE MONOCYTES (AUTO) 0.4 10^3/uL (0.1-1.4); ABSOLUTE NEUT (AUTO) 5.7 10^3/uL (1.7-8.2); BASOPHILS % (AUTO) 0.5 % (0-2); EOSINOPHILS % (AUTO) 2.1 % (0-6); HEMATOCRIT 42.7 % (36.0-47.0); HEMOGLOBIN 14.7 g/dL (12.0-15.5); MEAN CORPUSCULAR HEMOGLOBIN 27.6 pg (27.0-33.4); MEAN CORPUSCULAR HGB CONC 34.4 g/dL (32.0-36.0); MEAN CORPUSCULAR VOLUME 81 fl (80-97); MONOCYTES % (AUTO) 4.5 % (3-13); PLATELET COUNT 205 10^3/uL (150-450); RED CELL DISTRIBUTION WIDTH 13.1 % (11.5-14.0); SEGMENTED NEUTROPHILS % (AUTO) 61.9 % (42-78); TOTAL CELLS COUNTED % (AUTO) 100 %; WHITE BLOOD COUNT 9.2 10^3/uL (4.0-10.5)
--- NOTE | 2017-08-06 20:53 | ER Document Report ---
ED Neuro Symptoms/Deficit - General Chief Complaint: S/S of Possible Stroke Stated Complaint: STROKE SYMPTOMS Time Seen by Provider: 08/06/17 20:36 Notes: This 52-year-old female patient comes emergency room for possible stroke. Spouse reports that she walked over to him and said that she does not feel well and then collapsed. Patient then would not speak since the episode at 19:40. EMS was called as they were across the street and brought to the ER. Accu-Chek was 200. She was seen on 07/12/2017 and 07/24/2017 for similar symptoms. Her reports that the symptoms cleared up in about 1 day. By history from , MRI at [facility] was negative for stroke, but showed a blockage of the brain, a blockage of the heart and blockages of both carotid arteries with the left carotid being the worst. The further reports that the doctors offered to do surgery of the carotid artery, but wanted her to have a stress test first. She did not want to do this and left AMA. She was diagnosed with uterine cancer over 8 years ago, but has not done any treatment. She recently moved up from [place] 1.5 months ago. TRAVEL OUTSIDE OF THE [place] IN LAST 30 DAYS: No - Related Data Allergies/Adverse Reactions: aspirin Allergy (Unknown, Verified 08/06/17 20:53) cephalexin [From Keflex] Allergy (Unknown, Verified 08/06/17 20:53) Penicillins Adverse Reaction (Verified 08/06/17 20:53) Past Medical History - General Information source: Patient, Relative - Social History Smoking Status: Current Every Day Smoker Family History: Reviewed & Not Pertinent Pulmonary Medical History: Reports: Hx COPD Neurological Medical History: Reports: Hx Seizures Endocrine Medical History: Reports: Hx Diabetes Mellitus Type 2 Renal/ Medical History: Denies: Hx Peritoneal Dialysis Past Surgical History: Reports: Hx Section Review of Systems - Review of Systems Notes: REVIEW OF SYSTEMS: CONSTITUTIONAL: -fevers, -chills EENT: -eye pain, -difficulty swallowing, -nasal congestion CARDIOVASCULAR: -chest pain, -syncope. RESPIRATORY: -cough, -SOB GASTROINTESTINAL: -abdominal pain, -nausea, -vomiting, -diarrhea GENITOURINARY: -dysuria, -hematuria MUSCULOSKELETAL: +chronic left shoulder and hip pain, +chronic left arm and leg weakness from the pain, -back pain, -neck pain SKIN: -rash or skin lesions. HEMATOLOGIC: -easy bruising or bleeding. LYMPHATIC: -swollen, enlarged glands. NEUROLOGICAL: +aphasia PSYCHIATRIC: -anxiety, -depression. ALL OTHER SYSTEMS REVIEWED AND NEGATIVE. Physical Exam - Vital signs Vitals: Temp 99.1 F 08/06/17 20:50 - Notes Notes: PHYSICAL EXAMINATION: GENERAL: Well-appearing, well-nourished and in no acute distress. HEAD: Atraumatic, normocephalic. EYES: Pupils equal round and reactive to light, extraocular movements intact, sclera anicteric, conjunctiva are normal. ENT: nares patent, oropharynx clear without exudates. Moist mucous membranes. NECK: Normal range of motion, supple without lymphadenopathy LUNGS: Breath sounds clear to auscultation bilaterally and equal. No wheezes rales or rhonchi. HEART: Regular rate and rhythm without murmurs ABDOMEN: Soft, nontender, normoactive bowel sounds. No guarding, no rebound. No masses appreciated. EXTREMITIES: Normal range of motion, no pitting or edema. No cyanosis. NEUROLOGICAL: Cranial nerves grossly intact. Will not speak. Normal sensory exams. 5/5 strength in RUE and RLE. Chronic LUE and LLE weakness from shoulder and hip pain. SKIN: Warm, Dry, normal turgor, no rashes or lesions noted. Course - Re-evaluation Re-evalutation: Patient seen immediately on arrival due to recent onset of symptoms. She was taken immediately to CT head after her airway appeared intact and respiratory status was stable. CT head did not show any acute abnormalities. Patient has chronic left arm and leg weakness and pain. Her acute symptoms are that she will not speak since 19:40 tonight. NIH stroke scale difficult to obtain, but with her aphasia, it was calculated to be a 3. Her left arm and leg weakness appear to be from a painful shoulder and hip and less from an acute CVA. Looking through prior records, she has had similar symptoms multiple times in the past month. She had an MRI of her brain at [facility], which the says did not show any evidence of a stroke. From prior records, there may have been suspicion of psychogenic symptoms. Her , who is the surrogate decision maker, declines TPA due to the risk of bleeding and lack of benefit. He understands the risks of not getting TPA, including chronic aphasia and chronic disability. Patient has an adverse reaction to aspirin, as it causes GI bleed, so will hold off at this time. MRI obtained to assess for an acute CVA. 08/06/17 22:28 MRI does not show any evidence of a CVA and her symptoms have completely resolved. Suspect that this may be an acute stress reaction, but told her to follow-up with her doctors in [facility] for further evaluation and treatment. Patient is also requesting medicine for her left deltoid and upper trapezius pain. Will send her home with Naprosyn, Robaxin and Lidoderm patches. We will also start her on Norvasc for her chronic hypertension. She has an appointment in 1 week with the [facility]. - Vital Signs Vital signs: Temp Pulse Resp BP Pulse Ox 99.1 F 08/06/17 20:50 - Laboratory Result Diagrams: 08/06/17 20:14 08/06/17 20:14 - Diagnostic Test Radiology reviewed: Image reviewed, Reports reviewed Radiology results interpreted by me: CT Head: No acute intracranial abnormalities. CXR: NAD MRI Head: NAD - EKG Interpretation by Me EKG shows normal: Sinus rhythm, [place], Intervals, QRS Complexes, ST-T Waves Rate: Normal ED Alteplase Inc/Exc Criteria - Date/Time patient last known well: Date/Time: 08/06/17 19:40 - Inclusion Criteria: 1: Patient presented to ED within 3 hours of acute ischemic stroke symptom onset ? -: Yes 2: Did baseline CT exclude intracranial hemorrhage and/or other risk factors? -: Yes 3: Is the age of the patient 18 years of age or greater? -: Yes : If any of the above questions are answered "NO" then stop, patient is not a candidate for Alteplase, : If all of the above questions are answered "YES" then continue with Exclusion Criteria. - Exclusion Criteria: 1: Is there evidence of intracranial hemorrhage on baseline CT? -: No 2: Is there suspicion of subarachnoid hemorrhage (even if CT negative)? -: No 3: Is there a history of serious head trauma, recent previous stroke or NE within 3 months? -: No 4: Does the patient have a clinical presentation consistent with NE or post-NE pericarditis? -: No 5: Is there history of intracranial hemorrhage? -: No 6: On repeated measurement is Systolic BP greater than 185mmHg or Diastolic BP greater that 110 mmHg and is aggressive treatment needed to reduce blood pressure to these limits (e.g. constant infusion of an anti-hypertensive)? -: Yes 7: Did the patient awake with stroke symptoms? -: No 8: Has the patient had a lumbar puncture or an arterial puncture at a non- compressile site within 7 days? -: No 9: With in the last 14 days did the patient have surgery or major trauma? -: No 10: Is the patient or less than 2 weeks? -: No 11: Was there any active bleeding or acute trauma? -: No 12: Does the patient have intracranial neoplasm, arteriovenous malformation or aneurysm? -: No 13: Does the patient have abnormal glucose (less than 50 or greater than 400mg/ dl)? Record glucose in Comment. -: No 14: Patient has rapidly improving symptoms at the time Alteplase is to be Administered. -: Yes 15: Does the patient have any risks for bleeding, including but not limited to: a.: Current use of Coumadin with PT greater than 15 seconds or INR greater than 1.7. b.: Current use of Pradaxa (Dabigatran). c.: Heparin administereed within the past 48 hours and PTT elevated. d.: Platelet count less than 100,000/mm. e.: Major surgery or serious trauma within 14 days. f.: Gastrointestinal or gynecological urinary bleeding within 14 days. g.: Myocardial Infarction (NE) within 3 months. -: No : If the answer to any of the above questions is "YES" then stop, the patient is not a candidate for Alteplase. : If the answer to all of the above questions is "NO" then the patient may be eligible for the Administration of Alteplase. : If the patient is noted to have seizure activity at onset of Stroke symptoms; Consult Neurologist for further evaluation. - The patient is: -: Included and is eligible to receive Alteplase. *Initiate bed placement at higher level of care* --: No Reviewd risks & benefits of thrombolytic therapy: I have reviewed the risks and benefits of thrombolytic therapy with the patient and/or his/her family. Yes -: Excluded and not eligible to receive Alteplase for the above exclusions. --: Yes -: Excluded and not eligible to receive Alteplase for other reasons (specify in comments): --: Yes - Diagnosis of TIA: -: Patient presented with transient symptoms that are now resolved and no other neurologic findings are currently present. List symptoms in comments. -: Yes -: Patient is NOT a candidate for tPA. -: Yes -: ____(put name in comment) has been consulted for admission and continued evaluation of risk factor assessment. ED NIH Stroke Scale - NIH Stroke Scale When completed:: Before Alteplase *: 1. NIH scale should be completed with appropriate accompanying assessment tools. *: 2. The NIH should reflect what the patient is capable of doing and should not be coached by the clinician. 1a. Level of Consciousness: 0=Alert;keenly responsive -: 1=Drowsy -: 2=Obtunded -: 3=Coma/unresponsive or reflex to noxious stimuli. 1a. Responses: 0 1b. Orientation Questions: a. What month is it? -: b. How old are you? -: 0=Answers both questions correctly. -: 1=Answers one question correctly or patient is intubated or has orotracheal trauma. -: 2=Answers neither question correctly. 1b. Responses: 0 1c. Response to commands: a. Open and close eyes? -: b. Pit Clerk and release hand? -: Credit is given despite weakness. Demonstration of task is permitted. Substitute command if hands cannot be used. -: 0=Performs both tasks correctly -: 1=Performs one task correctly -: 2=Performs neither task correctly 1c. Responses: 0 2. Gaze: Establish eye contact and instruct patient to "Follow my finger" -: 0=Normal -: 1=Partial gaze palsy. Gaze is abnormal in one or both eyes, but where forced deviation or total gaze paresis is not present. -: 2=Forced deviation or total gaze paresis. 2. Responses: 0 3. Visual Root: Sees fingers in all four quadrants. -: 0=No visual loss. -: 1=Partial hemianopsia. -: 2=Complete hemianopsia. -: 3=Bilateral hemianopsia (including Cortical blindness) 3. Responses: 0 4. Facial Movement: Instruct patient to: -: a. Show me your teeth -: b. Raise your eyebrows -: c. Close your eyes -: d. Smile -: 0=Normal symmetrical movement -: 1=Minor paralysis (flattened nasolabial fold, asymmetry on smiling). -: 2=Partial paralysis (total or near total paralysis of lower face). -: 3=Complete paralysis of upper and lower face 4. Responses: 0 5. Motor functions (left arm): Alternate sides and extend each arm with palms down (90 degrees if sitting or 45 degrees for supine). -: 0=No drift;limb holds for full 10 seconds. -: 1=Drift; limb holds but drifts down before full 10 seconds, but does not hit bed. -: 2=Some effort against gravity; limb cannot get to or maintain position. -: 3=No effort against gravity; limb falls. -: 4=No movement. -: UN=Amputation, joint fusion, explain in comments. 5. Responses (left arm): UN - Chronic left shoulder pain and arm weakness 5. Motor Functions (right arm): Alternate sides and extend each arm with palms down (90 degrees if sitting or 45 degrees for supine). -: 0=No drift;limb holds for full 10 seconds. -: 1=Drift; limb holds but drifts down before full 10 seconds, but does not hit bed. -: 2=Some effort against gravity; limb cannot get to or maintain position. -: 3=No effort against gravity; limb falls. -: 4=No movement. -: UN=Amputation, joint fusion, explain in comments. 5. Responses (right arm): 0 6. Motor Functions (left leg): With patient lying supine, alternate sides and extend each leg (30 degrees always while supine). -: 0=No drift, leg holds position for full 5 seconds -: 1=Drift; leg falls before full 5 seconds but does not hit bed. -: 2=Some effort against gravity, leg falls to bed but some effort against gravity. -: 3=No effort against gravity, leg falls to bed immediately. -: 4=No movement. -: UN=Amputation, joint fusion; explain in comments. 6. Responses (left leg): UN - Chronic left hip pain and leg weakness 6. Motor Functions (right leg): With patient lying supine, alternate sides and extend each leg (30 degrees always while supine). -: 0=No drift, leg holds position for full 5 seconds -: 1=Drift; leg falls before full 5 seconds but does not hit bed. -: 2=Some effort against gravity, leg falls to bed but some effort against gravity. -: 3=No effort against gravity, leg falls to bed immediately. -: 4=No movement. -: UN=Amputation, joint fusion; explain in comments. 6. Responses (right leg): 0 7. Limb Ataxia: With eyes open instruct patient to: -: a. "Touch your finger to your nose". -: b. "Touch your heel to your story" -: 0=Absent -: 1=Present in one limb. -: 2=Present in two limbs. -: UN=Amputation or joint fusion; explain in comments. 7. Responses: 0 8. Sensory: Test sensation using pinprick or noxious stimuli. Test as many body parts as possible. -: 0=Normal;no sensory loss -: 1=Mile to moderate sensory loss (patient feels pin prick but is less sharp on affected side). -: 2=Severe or total sensory loss. 8. Responses: 0 9. Best Language: Instruct patient to: -: a. "Describe what you see in this picture." -: b. "Name the items in this picture." -: c. "Read these sentences." -: 0=No aphasia, normal -: 1=Mild to moderate aphasia. -: 2=Severe aphasia -: 3=Mute, global aphasia, no usable speech or auditory comprehension. 9. Responses: 3 10. Articulation, Dysarthia: Instruct patient to: -: "Read these words" or "Repeat these words" -: 0=Normal -: 1=Mild to moderate; patient may slur some words but can be understood without difficulty. -: 2=Severe; patients speech so slurred as to be unintelligible in the absence of dysphasia. -: UN=Intubated or other physical barrier, explain in comments. 10. Responses: UN 11. Extinction or inattention: 0=No abnormality -: 1= Visual, tactile, auditory, spatial, or personal inattention or extinction to bilateral simulation in one or the sensory modalities. -: 2=Profound faiza-inattention or faiza-inattention to more than one modality; does not recognize own hand. 11. Responses: 0 Total Score: 3 Discharge - Discharge Clinical Impression: Transient neurological symptoms Condition: Stable Additional Instructions: Your CAT scan and MRI of the brain do not show any evidence of a stroke today. You must follow-up with your doctors in [facility] for further evaluation and treatment. There may be a component of stress related to your symptoms, but you still need to follow-up with your Neurologist and Vascular Surgeon. Transient Ischemic Attack It can result in visual changes, difficulty with speech, and weakness or numbness -- usually limited to one side of the body. TIA symptoms usually resolve within an hour, but a TIA is serious, as it may be a warning sign of an impending stroke. To prevent further episodes, you may be placed on medication to reduce the possibility that your platelets will aggregate and form blood clots in the arteries that supply the brain. Usually, this includes aspirin and sometimes other platelet inhibitors. Further evaluation is often necessary to make an exact diagnosis as to where these blood clots are originating, and if anything else needs to be done to correct the problem. Call the physician or go to the emergency room if episodes occur with increasing frequency. If symptoms occur that don't go away within a few minutes , call 911. Anxiety The physician feels that some of your health problems are being caused by anxiety. Anxiety affects your health in many ways. Anxiety alone can cause palpitations, sweats, chest pains, abdominal pains, shortness of breath, and headaches. It contributes to ulcer disease, high blood pressure, irritable bowel syndrome, and has been shown to cause flare-ups of many other diseases. Anxiety is not a simple disorder to treat. If the anxiety is due to recent life stresses, you may simply need time to "work through" the changes. If the anxiety is due to an underlying unhappiness with yourself or due to psychiatric disturbance, professional help will be needed. Your physician can refer you for further help if needed. Anti-anxiety medication is occasionally given if the stress is acute or if you are having trouble sleeping. Chronic or frequent use of these medications is not a good idea because the body becomes reliant on it, preventing you from dealing with life's normal stresses. Prescriptions: Amlodipine Besylate [Norvasc 5 mg Tablet] 5 mg PO DAILY #30 tablet Methocarbamol [Robaxin 500 mg Tablet] 500 mg PO Q4H PRN #15 tablet PRN Reason: Naproxen [Naprosyn 250 mg Tablet] 500 mg PO Q12H PRN #30 tablet PRN Reason: Forms: Elevated Blood Pressure Referrals: PAT CRUZ MD [NO LOCAL MD] - Follow up as needed FRACISCO BENAVIDES MD [ACTIVE STAFF] - Follow up as needed
[2017-08-06 20:56] LABS: PROTHROMBIN TIME 12.6 SEC (11.4-15.4)
[2017-08-06 20:57] LABS: PARTIAL THROMBOPLASTIN TIME 25.8 SEC (23.5-35.8)
[2017-08-06 21:15] LABS: ALANINE AMINOTRANSFERASE 25 U/L (9-52); ALBUMIN 4.4 g/dL (3.5-5.0); ALKALINE PHOSPHATASE 156 U/L (38-126); ANION GAP 15 (5-19); ASPARTATE AMINO TRANSFERASE 21 U/L (14-36); BILIRUBIN,DIRECT 0.3 mg/dL (0.0-0.4); BILIRUBIN,TOTAL 0.3 mg/dL (0.2-1.3); BLOOD UREA NITROGEN 13 mg/dL (7-20); CALCIUM 9.3 mg/dL (8.4-10.2); CARBON DIOXIDE 27 mmol/L (22-30); CHLORIDE 100 mmol/L (98-107); CREATINE KINASE 83 U/L (30-135); GLUCOSE 249 mg/dL (75-110); POTASSIUM 3.4 mmol/L (3.6-5.0); SODIUM 141.5 mmol/L (137-145); TOTAL PROTEIN 7.6 g/dL (6.3-8.2)
--- NOTE | 2017-08-06 21:28 | RADIOLOGY REPORT (SQ) ---
EXAM DESCRIPTION: CT HEAD WITHOUT COMPLETED DATE/TIME: 08/06/2017 8:41 pm REASON FOR STUDY: left-sided weakness COMPARISON: 07/24/2017 TECHNIQUE: Axial images acquired through the brain without intravenous contrast. Images reviewed wi th bone, brain and subdural windows. Additional sagittal and coronal reconstructions were generated. Images stored on PACS. All CT scanners at this facility use dose modulation, iterative reconstruction, and/or weight based d osing when appropriate to reduce radiation dose to as low as reasonably achievable (ALARA). [facility]: Dose Right [facility]: CareDose [facility]: Dose Right [facility]: Teradose 4D [facility]: [employer] RADIATION DOSE: mGy. LIMITATIONS: None. FINDINGS: VENTRICLES: Normal size and contour. CEREBRUM: No masses. No hemorrhage. No midline shift. No evidence for acute infarction. Normal gra y/white matter differentiation. No areas of low density in the white matter. CEREBELLUM: No masses. No hemorrhage. No alteration of density. No evidence for acute infarction. EXTRAAXIAL SPACES: No fluid collections. No masses. ORBITS AND GLOBE: No intra- or extraconal masses. Normal contour of globe without masses. CALVARIUM: No fracture. PARANASAL SINUSES: Mucous retention cyst in the right maxillary sinus. SOFT TISSUES: No mass or hematoma. OTHER: Please note: There is a demographics mismatch warning. This is the same patient was done on 07/24/2017. IMPRESSION: Right maxillary sinus disease with no acute intracranial imaging findings. EVIDENCE OF ACUTE STROKE: NO. COMMENT: The findings were discussed with the ordering physician at 2123 hours on this date. Quality ID # [id number]: Final reports with documentation of one or more dose reduction techniques (e.g., Au tomated exposure control, adjustment of the mA and/or kV according to patient size, use of iterative reconstruction technique) TECHNICAL DOCUMENTATION: JOB ID: [id number] [employer]- All Rights Reserved Reading location - IP/workstation name: [email or web address]
--- NOTE | 2017-08-06 21:30 | RADIOLOGY REPORT (SQ) ---
EXAM DESCRIPTION: CHEST SINGLE VIEW COMPLETED DATE/TIME: 08/06/2017 8:43 pm REASON FOR STUDY: left-sided weakness COMPARISON: 07/24/2017 EXAM PARAMETERS: NUMBER OF VIEWS: One view. TECHNIQUE: Single frontal radiographic view of the chest acquired. RADIATION DOSE: NA LIMITATIONS: None. FINDINGS: LUNGS AND PLEURA: Mild chronic interstitial changes are seen. There is no acute infiltrat e or pleural effusion. There is no mass. MEDIASTINUM AND HILAR STRUCTURES: No masses. Contour normal. HEART AND VASCULAR STRUCTURES: Borderline heart size. No evidence of failure. BONES: No acute findings. HARDWARE: None in the chest. OTHER: No other significant finding. IMPRESSION: Mild chronic lung changes with no acute pulmonary disease. Borderline cardiomegaly with out failure. TECHNICAL DOCUMENTATION: JOB ID: [id number] [employer]- All Rights Reserved Reading location - IP/workstation name: [email or web address]
[2017-08-06 21:36] LABS: URINE AMPHETAMINES SCREEN NEGATIVE; URINE BARBITURATES SCREEN NEGATIVE; URINE BENZODIAZEPINES SCREEN NEGATIVE; URINE COCAINE SCREEN NEGATIVE; URINE MARIJUANA (THC) SCREEN NEGATIVE; URINE METHADONE SCREEN NEGATIVE; URINE PHENCYCLIDINE SCREEN NEGATIVE
--- NOTE | 2017-08-06 22:16 | RADIOLOGY REPORT (SQ) ---
EXAM DESCRIPTION: MRI HEAD WITHOUT COMPLETED DATE/TIME: 08/06/2017 9:43 pm REASON FOR STUDY: sudden onset of confusion COMPARISON: 07/12/[address] TECHNIQUE: Multiplanar imaging includes non-contrasted T1, T2, FLAIR, and diffusion with ADC map seq uences. Images stored on PACS. LIMITATIONS: None. FINDINGS: ANATOMY: Empty sella. Normal vascular flow voids. CSF SPACES: Normal in size and contour. No hemorrhage. CEREBRUM: Sulci and gyri normal in size and contour. Age-appropriate white matter signal on FLAIR im aging. No evidence of hemorrhage, mass, or extraaxial fluid collection. POSTERIOR FOSSA: No signal alteration. No hemorrhage. No edema, masses or mass effect. Internal martínez tory canals, cerebello-pontine angles, mastoids normal. DIFFUSION IMAGING: Negative for acute or sub-acute infarction. ORBITS: No masses. Globes normal. PARANASAL SINUSES: No fluid levels. Mucosa normal. OTHER: Right mastoid effusion. IMPRESSION: Negative for acute or sub-acute infarction. Right mastoid effusion. EVIDENCE OF ACUTE STROKE: NO. TECHNICAL DOCUMENTATION: JOB ID: [id number] [id number] 2010 [employer]- All Rights Reserved Reading location - IP/workstation name: [email or web address] [facility]
[2017-08-06] MEDS ORDERED: NAPROXEN 250 MG TABLET PO ONE (22:36)
[2017-08-06] MEDS ORDERED: METHOCARBAMOL 500 MG TABLET PO ONE (22:36)
[2017-08-06] MEDS ORDERED: LIDOCAINE 5% (700 MG) TRANSDERMAL ADH..PATCH TP ONE (22:36)
[2017-08-06] MEDS ORDERED: AMLODIPINE BESYLATE 5 MG TABLET PO ONE (22:36)
[2017-08-06 23:17] VITALS: BP 168/85
--- NOTE | 2017-08-06 23:34 | EKG REPORT ---
SEVERITY:- BORDERLINE ECG - SINUS RHYTHM BORDERLINE PROLONGED QT INTERVAL : Confirmed by: Francis Brand 06-Aug-2017 23:33:39
== END 2017-08-06 23:05 | disposition home or self-care (01) ==
LOC: ER 20:34
DX: R55 Syncope and collapse (principal); F17.200 Nicotine dependence, unspecified, uncomplicated; J44.9 Chronic obstructive pulmonary disease, unspecified; E11.9 Type 2 diabetes mellitus without complications; R47.01 Aphasia; G89.29 Other chronic pain; M79.605 Pain in left leg; M79.604 Pain in right leg; M79.602 Pain in left arm; M79.601 Pain in right arm; Z88.0 Allergy status to penicillin; Z88.6 Allergy status to analgesic agent; Z88.3 Allergy status to other anti-infective agents
CPT/HCPCS: 36415; 70450; 70551; 71045; 80053; 80307; 82550; 82962; 84484; 85025; 85610; 85730; 93005; 93010; 99285

== ENCOUNTER 2017-09-08 13:28 | Emergency (ER) | payer SELFPAY ==
--- NOTE | 2017-09-08 13:52 | RADIOLOGY REPORT (SQ) ---
EXAM DESCRIPTION: CHEST SINGLE VIEW COMPLETED DATE/TIME: 09/08/2017 1:45 pm REASON FOR STUDY: Stroke-like symptoms COMPARISON: None. EXAM PARAMETERS: NUMBER OF VIEWS: One view. TECHNIQUE: Single frontal radiographic view of the chest acquired. RADIATION DOSE: NA LIMITATIONS: None. FINDINGS: LUNGS AND PLEURA: No opacities, masses or pneumothorax. No pleural effusion. MEDIASTINUM AND HILAR STRUCTURES: No masses. Contour normal. HEART AND VASCULAR STRUCTURES: Heart normal in size. Normal vasculature. BONES: No acute findings. HARDWARE: None in the chest. OTHER: No other significant finding. IMPRESSION: NO ACUTE RADIOGRAPHIC FINDING IN THE CHEST. TECHNICAL DOCUMENTATION: JOB ID: [id number] [employer]- All Rights Reserved Reading location - IP/workstation name: [email or web address]
--- NOTE | 2017-09-08 13:53 | RADIOLOGY REPORT (SQ) ---
EXAM DESCRIPTION: CT HEAD WITHOUT COMPLETED DATE/TIME: 09/08/2017 1:43 pm REASON FOR STUDY: Stroke-like symptoms COMPARISON: 08/06/2017. TECHNIQUE: Axial images acquired through the brain without intravenous contrast. Images reviewed wi th bone, brain and subdural windows. Additional sagittal and coronal reconstructions were generated. Images stored on PACS. All CT scanners at this facility use dose modulation, iterative reconstruction, and/or weight based d osing when appropriate to reduce radiation dose to as low as reasonably achievable (ALARA). [facility]: Dose Right [facility]: CareDose [facility]: Dose Right [facility]: Teradose 4D [facility]: [employer] RADIATION DOSE: mGy. LIMITATIONS: None. FINDINGS: VENTRICLES: Normal size and contour. CEREBRUM: No masses. No hemorrhage. No midline shift. No evidence for acute infarction. Normal gra y/white matter differentiation. No areas of low density in the white matter. CEREBELLUM: No masses. No hemorrhage. No alteration of density. No evidence for acute infarction. EXTRAAXIAL SPACES: No fluid collections. No masses. ORBITS AND GLOBE: No intra- or extraconal masses. Normal contour of globe without masses. CALVARIUM: No fracture. PARANASAL SINUSES: No fluid or mucosal thickening. SOFT TISSUES: No mass or hematoma. OTHER: No other significant finding. IMPRESSION: NORMAL BRAIN CT WITHOUT CONTRAST. EVIDENCE OF ACUTE STROKE: NO. COMMENT: Pertinent positive or negative findings of the imaging study reported as a CRITICAL EXAM t o ER PROVIDER at13:47 on 09/08/2017. Category of Critical Exam: Stroke protocol. Quality ID # 436: Final reports with documentation of one or more dose reduction techniques (e.g., Au tomated exposure control, adjustment of the mA and/or kV according to patient size, use of iterative reconstruction technique) TECHNICAL DOCUMENTATION: JOB ID: [id number] [employer]- All Rights Reserved Reading location - IP/workstation name: [email or web address]
[2017-09-08 14:09] LABS: ABSOLUTE EOSINOPHILS # (AUTO) 0.3 10^3/uL (0.0-0.6); ABSOLUTE LYMPHOCYTES (AUTO) 2.1 10^3/uL (0.5-4.7); ABSOLUTE MONOCYTES (AUTO) 0.4 10^3/uL (0.1-1.4); BASOPHILS % (AUTO) 0.2 % (0-2); EOSINOPHILS % (AUTO) 3.6 % (0-6); HEMATOCRIT 41.3 % (36.0-47.0); HEMOGLOBIN 14.3 g/dL (12.0-15.5); LYMPHOCYTES % (AUTO) 27.2 % (13-45); MEAN CORPUSCULAR HEMOGLOBIN 27.7 pg (27.0-33.4); MEAN CORPUSCULAR HGB CONC 34.7 g/dL (32.0-36.0); MEAN CORPUSCULAR VOLUME 80 fl (80-97); MONOCYTES % (AUTO) 5.1 % (3-13); PLATELET COUNT 230 10^3/uL (150-450); RED BLOOD COUNT 5.17 10^6/uL (3.72-5.28); RED CELL DISTRIBUTION WIDTH 13.5 % (11.5-14.0); SEGMENTED NEUTROPHILS % (AUTO) 63.9 % (42-78); TOTAL CELLS COUNTED % (AUTO) 100 %; WHITE BLOOD COUNT 7.9 10^3/uL (4.0-10.5)
[2017-09-08 14:13] LABS: PARTIAL THROMBOPLASTIN TIME 22.2 SEC (23.5-35.8)
[2017-09-08 14:15] LABS: PROTHROMBIN TIME 12.6 SEC (11.4-15.4)
[2017-09-08 15:20] LABS: INTERNATIONAL RATION (INR) 0.91; PROTHROMBIN TIME 12.7 SEC (11.4-15.4)
[2017-09-08 15:23] LABS: ALANINE AMINOTRANSFERASE 34 U/L (9-52); ALBUMIN 3.9 g/dL (3.5-5.0); ALKALINE PHOSPHATASE 135 U/L (38-126); ANION GAP 9 (5-19); ASPARTATE AMINO TRANSFERASE 18 U/L (14-36); BILIRUBIN,DIRECT 0.3 mg/dL (0.0-0.4); BILIRUBIN,TOTAL 0.3 mg/dL (0.2-1.3); BLOOD UREA NITROGEN 15 mg/dL (7-20); CALCIUM 9.5 mg/dL (8.4-10.2); CARBON DIOXIDE 29 mmol/L (22-30); CHLORIDE 104 mmol/L (98-107); CREATINE KINASE 61 U/L (30-135); GLUCOSE 205 mg/dL (75-110); POTASSIUM 4.1 mmol/L (3.6-5.0); SODIUM 142.1 mmol/L (137-145); TOTAL PROTEIN 6.7 g/dL (6.3-8.2)
[2017-09-08 15:35] LABS: CREATINE KINASE MB 0.56 ng/mL (<4.55)
[2017-09-08 15:41] LABS: TROPONIN I < 0.012 ng/mL
[2017-09-08] MEDS ORDERED: LORAZEPAM 1 MG TABLET PO ONE (15:41)
--- NOTE | 2017-09-08 15:46 | ER Document Report ---
ED General - General Chief Complaint: S/S of Possible Stroke Stated Complaint: POSSIBLE STROKE Time Seen by Provider: 09/08/17 13:54 Notes: Patient presents with inability to speak and weakness of her left side that started about 1 hour ago. She was fine this morning when she awakened. Her is acting as her surrogate speaker. Patient has had episodes like this over the past 2 months. She was seen here and transferred to [facility] last month. Patient and were told that she has had a TIA because her symptoms resolved completely. They did studies and he says that she has clogged carotid arteries and that something needs to be done about them. I am attempting to get medical records from [facility], but from reviewing our medical records here, it appears this patient has had 3 or 4 episodes almost exactly like this 1. She apparently walks near her and "collapses" with him catching her so that she does not have a serious fall. Then, over matter of hours or day her symptoms resolved. She has had 4 CT scans of her brain and one MRI of the brain here and they have all been negative. says her studies of her brain in [place] have also been negative. Patient has a history of hypertension and NIDDM and is supposed to be on medications, but just got them refilled and she has not been taking them as she is supposed to be. TRAVEL OUTSIDE OF THE [place] IN LAST 30 DAYS: No - Related Data Allergies/Adverse Reactions: aspirin Allergy (Unknown, Verified 08/06/17 20:53) cephalexin [From Keflex] Allergy (Unknown, Verified 08/06/17 20:53) Penicillins Adverse Reaction (Verified 08/06/17 20:53) Past Medical History - Social History Smoking Status: Current Every Day Smoker Family History: Reviewed & Not Pertinent Patient has suicidal ideation: No Patient has homicidal ideation: No - Past Medical History Cardiac Medical History: Reports: Hx Hypertension Pulmonary Medical History: Reports: Hx COPD Neurological Medical History: Reports: Hx Seizures, Other - See HPI. TIAs. Endocrine Medical History: Reports: Hx Diabetes Mellitus Type 2 Malignancy Medical History: Reports: Other - Been told she has uterine cancer, diagnosed in 2007, no treatment!! Past Surgical History: Reports: Hx Section, Hx Cholecystectomy Review of Systems - Review of Systems Notes: REVIEW OF SYSTEMS: Obtained from . Patient is awake and can make hand signs to communicate because she indicates she does not have a voice. CONSTITUTIONAL : Denies fever. EENT: Denies eye, ear, nose or mouth or throat pain or other symptoms. CARDIOVASCULAR: Denies chest pain. RESPIRATORY: Denies cough, chest congestion, or shortness of breath. GASTROINTESTINAL: Denies abdominal pain or nausea, vomiting, or diarrhea. GENITOURINARY: Denies difficulty or painful urinating, urinary frequency, blood in urine. MUSCULOSKELETAL: Denies back or neck pain. Denies joint pain or swelling. SKIN: Denies rash or skin lesions. NEUROLOGICAL: See HPI. Patient is requesting pain medication. ALL OTHER SYSTEMS REVIEWED AND NEGATIVE. Physical Exam - Vital signs Vitals: Resp Pulse Ox 14 96 09/08/17 13:47 09/08/17 13:47 Interpretation: Hypertensive - Patient's blood pressure here is anywhere from 150 280 systolic. At home, 210/100 - Notes Notes: PHYSICAL EXAMINATION: GENERAL: Well-appearing, in no acute distress. HEAD: Atraumatic, normocephalic. EYES: Pupils equal round and reactive to light, extraocular movements intact. ENT: oropharynx clear without exudates. Moist mucous membranes. No facial asymmetry. Says she cannot talk. Communicates with hand motions and spelling words. NECK: Normal range of motion, supple. LUNGS: Breath sounds clear and equal bilaterally. HEART: Regular rate and rhythm without murmurs. ABDOMEN: Soft, nontender. No guarding or rebound. No masses. BACK: No tenderness throughout entire back. EXTREMITIES: Normal range of motion without pain. Seems to have weakness of the left upper extremity, but when distracted, she may move both arms equally. NEUROLOGICAL: No speech and does not walk. Says her left arm is weak and can barely move it. Awake, alert, and oriented x3. PSYCH: Tearful. SKIN: Warm, dry, no rashes. Course - Re-evaluation Re-evalutation: 09/08/17 15:43 Patient passed the swallow test. Patient was able to turn in her. She was able to stand on one foot alone for a second or 2 and then on the other foot alone for a second or 2, as well. No facial asymmetry observed. Patient is now able to talk. I think most of this patient's symptoms are stress related and I am giving her 2 mg of Ativan p.o. 09/08/17 17:05 Doing much better now. Patient is talking normally. She is moving all of her extremities equally. Says that she was able to get up and walk to the bathroom and back to her bed without any assistance. 09/08/17 20:22 Patient has been discharged home. I have now received extensive medical records from her visits to [facility]. I will review them at a later time in the next day or so. I do not think patient is having true, legitimate neurologic deficits. She has no facial asymmetry and supposedly cannot move her left side, but how does that affect her vocal cords? Eventually, patient settled down and was able to regain usage of all of her body parts including her voice. Reviewing the records that we do have from here in the past, patient is presented identically with collapsing in 's arms in 2 or 3 prior visits here in the past 2 months. Eventually, patient was able to ambulate to the bathroom by herself without assistance. I feel it safe for her to be able to go home. - Vital Signs Vital signs: Temp Pulse Resp BP Pulse Ox 78 17 141/80 H 93 09/08/17 14:00 09/08/17 18:19 09/08/17 18:19 09/08/17 18:19 - Laboratory Result Diagrams: 09/08/17 13:56 09/08/17 14:56 Laboratory results interpreted by me: 09/08/17 09/08/17 13:56 14:56 APTT 22.2 L Glucose 205 H Alkaline Phosphatase 135 H - Diagnostic Test Radiology reviewed: Image reviewed, Reports reviewed - CT scan of the brain is normal. Discharge - Discharge Clinical Impression: Altered mental status, Anxiety, Hypertension Condition: Fair Disposition: HOME, SELF-CARE Additional Instructions: Altered Mental Status An altered mental status is a change in the normal functioning of the brain. This alteration of function can range from minor decreased brain function with some forgetfulness and confusion to complete loss of consciousness and coma. There are many possible causes of an altered mental status and include brain injuries such as trauma or strokes, problems with oxygen supply to the brain, fever and infections of the brain and/or elsewhere in the body, metabolic abnormalities such as low or high blood sugar, overdoses or excessive medication ingestion, and mental and psychiatric illnesses. Sometimes the altered mental status resolves and a definite cause is not determined. If a cause for your altered mental status was found, it has likely been corrected. Your evaluation has not shown any condition that requires that you be admitted to the hospital. It is believed that you are safe to leave and return to your home. If you have a return of your symptoms, you should return for re-evaluation. Anxiety The physician feels that some of your health problems are being caused by anxiety. Anxiety affects your health in many ways. Anxiety alone can cause palpitations, sweats, chest pains, abdominal pains, shortness of breath, and headaches. It contributes to ulcer disease, high blood pressure, irritable bowel syndrome, and has been shown to cause flare-ups of many other diseases. Anxiety is not a simple disorder to treat. If the anxiety is due to recent life stresses, you may simply need time to "work through" the changes. If the anxiety is due to an underlying unhappiness with yourself or due to psychiatric disturbance, professional help will be needed. Your physician can refer you for further help if needed. Anti-anxiety medication is occasionally given if the stress is acute or if you are having trouble sleeping. Chronic or frequent use of these medications is not a good idea because the body becomes reliant on it, preventing you from dealing with life's normal stresses. Benzodiazepines You have been given a benzodiazepine medication. Examples of this type of medicine include Valium, Xanax, Librium, Ativan, and Halcion. Benzodiazepines have many uses. Medications of this type are used for insomnia, anxiety, muscle spasms, seizures, and drug and alcohol withdrawal. You may become very drowsy when you first take the medication. You should not drive or operate machinery while under its effects. Do not combine the medication with alcohol, or with any other medication without talking to your doctor. Do not take if without specific instruction from your lead neurodiagnostic technologist. Some benzodiazepines may have harmful interactions with oral antifungal medicines such as ketoconazole, itraconazole, and nefazodone. If you are taking an antifungal medicine, discuss this with your doctor before taking benzodiazepines. Aspirin Aspirin has been shown to have a beneficial effect on blood circulation by reducing the clotting effect of platelets in the blood. These beneficial effects can be achieved by taking just a single baby (62.5 mg) aspirin a day. It is recommended that any person over the age of forty take a single baby aspirin every day for heart and brain circulation, unless you are allergic to aspirin or have some significant bleeding disorder. It is strongly recommended that people who have proven cardiac or blood circulation disturbances should take a baby aspirin every day. Take your medications for your high blood pressure, high blood sugar, and any other prescribed medications. FOLLOW-UP CARE: If you have been referred to a physician for follow-up care, call the physician s office for an appointment as you were instructed or within the next two days. If you experience worsening or a significant change in your symptoms, notify the physician immediately or return to the Emergency Department at any time for re-evaluation. Prescriptions: Lorazepam [Ativan 1 mg Tablet] 1 - 2 mg PO QIDP PRN #15 tablet PRN Reason: Referrals: JERICHO SALINAS MD [Primary Care Provider] - Follow up as needed
[2017-09-08 18:28] VITALS: BP 141/80
--- NOTE | 2017-09-08 22:09 | EKG REPORT ---
SEVERITY:- ABNORMAL ECG - SINUS RHYTHM PROLONGED QT INTERVAL : Confirmed by: Christine Connolly MD 08-Sep-2017 22:09:17
== END 2017-09-08 18:28 | disposition home or self-care (01) ==
LOC: ER 13:28
DX: R41.82 Altered mental status, unspecified (principal); F41.9 Anxiety disorder, unspecified; R53.1 Weakness; R47.01 Aphasia; F17.200 Nicotine dependence, unspecified, uncomplicated; J44.9 Chronic obstructive pulmonary disease, unspecified; I10 Essential (primary) hypertension; E11.9 Type 2 diabetes mellitus without complications; Z91.14 Patient's other noncompliance with medication regimen; Z88.6 Allergy status to analgesic agent; Z88.1 Allergy status to other antibiotic agents
CPT/HCPCS: 36415; 70450; 71045; 80053; 82550; 82553; 84484; 85025; 85610; 85730; 93005; 93010; 99285

== ENCOUNTER 2017-09-17 12:18 | Emergency (ER) | payer SELFPAY ==
--- NOTE | 2017-09-17 12:49 | ER Document Report ---
ED Medical Screen (RME) - General Chief Complaint: Leg Pain Stated Complaint: LEG SWELLING Time Seen by Provider: 09/17/17 12:43 Notes: RAPID MEDICAL EVALUATION DISCLOSURE I have seen this patient as part of a Rapid Medical Evaluation and, if applicable, placed any initially appropriate orders. The patient will be seen and fully evaluated, including a full history and physical exam, by a provider ( in Main ED or Fast Track) when a room becomes available. 52-year-old female here with complaints of bilateral leg pain ongoing for the past few days. She saw her PCP for this and she was sent here due to concern for possible blood clot. Patient denies any prior history of blood clots. She is currently taking Plavix for previous TIAs. She denies any chest pain shortness of breath. EXAM CTAB RRR No appreciable BLE edema TRAVEL OUTSIDE OF THE [place] IN LAST 30 DAYS: No - Related Data Allergies/Adverse Reactions: aspirin Allergy (Unknown, Verified 09/17/17 12:21) cephalexin [From Keflex] Allergy (Unknown, Verified 09/17/17 12:21) Penicillins Adverse Reaction (Verified 09/17/17 12:21) Past Medical History - Past Medical History Cardiac Medical History: Reports: Hx Hypertension Pulmonary Medical History: Reports: Hx COPD Neurological Medical History: Reports: Hx Seizures Endocrine Medical History: Reports: Hx Diabetes Mellitus Type 2 Renal/ Medical History: Denies: Hx Peritoneal Dialysis Past Surgical History: Reports: Hx Section, Hx Cholecystectomy Physical Exam - Vital signs Vitals: Temp Pulse Resp BP Pulse Ox 98.0 F 78 18 150/77 H 97 09/17/17 12:23 09/17/17 12:23 09/17/17 12:23 09/17/17 12:23 09/17/17 12:23 Course - Vital Signs Vital signs: Temp Pulse Resp BP Pulse Ox 98.0 F 78 18 150/77 H 97 09/17/17 12:23 09/17/17 12:23 09/17/17 12:23 09/17/17 12:23 09/17/17 12:23 Doctor's Discharge - Discharge Referrals: JERICHO SALINAS MD [Primary Care Provider] - Follow up as needed
[2017-09-17 13:14] LABS: ABSOLUTE EOSINOPHILS # (AUTO) 0.2 10^3/uL (0.0-0.6); ABSOLUTE MONOCYTES (AUTO) 0.3 10^3/uL (0.1-1.4); ABSOLUTE NEUT (AUTO) 4.6 10^3/uL (1.7-8.2); BASOPHILS % (AUTO) 0.6 % (0-2); EOSINOPHILS % (AUTO) 2.7 % (0-6); HEMOGLOBIN 13.6 g/dL (12.0-15.5); LYMPHOCYTES % (AUTO) 27.8 % (13-45); MEAN CORPUSCULAR HEMOGLOBIN 27.3 pg (27.0-33.4); MEAN CORPUSCULAR VOLUME 80 fl (80-97); MONOCYTES % (AUTO) 4.5 % (3-13); PLATELET COUNT 209 10^3/uL (150-450); RED BLOOD COUNT 4.99 10^6/uL (3.72-5.28); RED CELL DISTRIBUTION WIDTH 13.6 % (11.5-14.0); SEGMENTED NEUTROPHILS % (AUTO) 64.4 % (42-78); TOTAL CELLS COUNTED % (AUTO) 100 %; WHITE BLOOD COUNT 7.1 10^3/uL (4.0-10.5)
[2017-09-17 13:29] LABS: ALANINE AMINOTRANSFERASE 25 U/L (9-52); ALBUMIN 4.2 g/dL (3.5-5.0); ALKALINE PHOSPHATASE 133 U/L (38-126); ANION GAP 13 (5-19); ASPARTATE AMINO TRANSFERASE 15 U/L (14-36); BILIRUBIN,DIRECT 0.3 mg/dL (0.0-0.4); BILIRUBIN,TOTAL 0.3 mg/dL (0.2-1.3); BLOOD UREA NITROGEN 15 mg/dL (7-20); CALCIUM 9.6 mg/dL (8.4-10.2); CARBON DIOXIDE 26 mmol/L (22-30); CHLORIDE 103 mmol/L (98-107); GLUCOSE 310 mg/dL (75-110); POTASSIUM 3.9 mmol/L (3.6-5.0); SODIUM 141.6 mmol/L (137-145)
[2017-09-17] MEDS ORDERED: HYDROCODONE/ACETAMINOPHEN 5-325 MG TABLET PO ONE (14:04)
--- NOTE | 2017-09-17 14:06 | ER Document Report ---
ED Extremity Problem, Lower - General Chief Complaint: Leg Pain Stated Complaint: LEG SWELLING Time Seen by Provider: 09/17/17 12:43 Mode of Arrival: Ambulatory Information source: Patient Notes: Patient reports a 2 day history of bilateral lower extremity pain. Patient states she does have a history of diabetic neuropathy, but states that when she has had symptoms in the past she has had pain from the thighs distally. Patient states that her pain today is just from the bilateral calf distally to her feet. Patient saw her primary doctor who advised her to come here for evaluation to rule out DVT. Patient denies any chest pain or dyspnea. TRAVEL OUTSIDE OF THE [place] IN LAST 30 DAYS: No - HPI Patient complains to provider of: Pain Location: Leg Occurred: Other - 2 days Onset/Duration: Persistent Quality of pain: Achy Pain Level: 4 Associated symptoms: denies: Fever, Painful ambulation, Rapid heart rate, Short of breath Exacerbated by: Nothing - Related Data Allergies/Adverse Reactions: aspirin Allergy (Unknown, Verified 09/17/17 12:21) cephalexin [From Keflex] Allergy (Unknown, Verified 09/17/17 12:21) Penicillins Adverse Reaction (Verified 09/17/17 12:21) Past Medical History - General Information source: Patient - Social History Smoking Status: Current Every Day Smoker Chew tobacco use (# tins/day): No Smoking Education Provided: Yes Frequency of alcohol use: None Drug Abuse: None Occupation: None Lives with: Spouse/Significant other Family History: Reviewed & Not Pertinent Patient has suicidal ideation: No Patient has homicidal ideation: No - Past Medical History Cardiac Medical History: Reports: Hx Hypertension Pulmonary Medical History: Reports: Hx COPD Neurological Medical History: Reports: Hx Seizures Endocrine Medical History: Reports: Hx Diabetes Mellitus Type 2 Renal/ Medical History: Denies: Hx Peritoneal Dialysis Past Surgical History: Reports: Hx Section, Hx Cholecystectomy Review of Systems - Review of Systems Constitutional: No symptoms reported. denies: Fever, Recent illness EENT: No symptoms reported Cardiovascular: No symptoms reported. denies: Chest pain, Dizziness Respiratory: No symptoms reported. denies: Cough, Short of breath Gastrointestinal: No symptoms reported. denies: Nausea, Vomiting Genitourinary: No symptoms reported Female Genitourinary: No symptoms reported Musculoskeletal: Muscle pain. denies: Joint pain Skin: No symptoms reported Hematologic/Lymphatic: No symptoms reported Neurological/Psychological: No symptoms reported. denies: Headaches Physical Exam - Vital signs Vitals: Temp Pulse Resp BP Pulse Ox 98.0 F 78 18 150/77 H 97 09/17/17 12:23 09/17/17 12:23 09/17/17 12:23 09/17/17 12:23 09/17/17 12:23 - General General appearance: Appears well, Alert In distress: None - HEENT Head: Normocephalic, Atraumatic Eyes: Normal Conjunctiva: Normal Nasal: Normal Mouth/Lips: Normal Neck: Normal, Supple - Respiratory Respiratory status: No respiratory distress Chest status: Nontender Breath sounds: Normal. No: Rales, Rhonchi, Stridor, Wheezing Chest palpation: Normal - Cardiovascular Rhythm: Regular Heart sounds: S1 appreciated, S2 appreciated Murmur: No - Back Back: Normal, Nontender - Extremities General upper extremity: Normal inspection, Normal ROM General lower extremity: Normal inspection, Tender - Bilateral lower extremity pain from calf distally to feet, Normal color, Normal ROM, Normal strength, Normal temperature, Normal weight bearing. No: Edema - Neurological Neuro grossly intact: Yes Cognition: Normal Park Coma Scale Eye Opening: Spontaneous Park Coma Scale Verbal: Oriented Park Coma Scale Motor: Obeys Commands Willow Coma Scale Total: 15 - Psychological Associated symptoms: Normal affect, Normal mood - Skin Skin Temperature: Warm Skin Moisture: Dry Skin Color: Normal Course - Re-evaluation Re-evalutation: 09/17/17 16:[address] Alvarez that her Doppler study was negative for any DVT. Patient with normal skin color and temperature to bilateral lower extremity. No concern for cellulitis, DVT, or any septic arthritis. Patient nontoxic in appearance. Patient states she is supposed to call her primary doctor after she is discharged from here today. - Vital Signs Vital signs: Temp Pulse Resp BP Pulse Ox 97.7 F 72 16 138/70 H 100 09/17/17 16:50 09/17/17 16:50 09/17/17 16:50 09/17/17 16:50 09/17/17 16:50 - Laboratory Result Diagrams: 09/17/17 13:04 09/17/17 13:04 Laboratory results interpreted by me: 09/17/17 13:04 Glucose 310 H Alkaline Phosphatase 133 H 09/17/17 16:33 Labs- Entire Visit 09/17/17 09/17/17 13:04 13:04 WBC 7.1 RBC 4.99 Hgb 13.6 Hct 40.0 MCV 80 MCH 27.3 MCHC 34.0 RDW 13.6 Plt Count 209 Seg Neutrophils % 64.4 Lymphocytes % 27.8 Monocytes % 4.5 Eosinophils % 2.7 Basophils % 0.6 Absolute Neutrophils 4.6 Absolute Lymphocytes 2.0 Absolute Monocytes 0.3 Absolute Eosinophils 0.2 Absolute Basophils 0.0 Sodium 141.6 Potassium 3.9 Chloride 103 Carbon Dioxide 26 Anion Gap 13 BUN 15 Creatinine 0.75 Est GFR ( Amer) > 60 Est GFR (Non-Af Amer) > 60 Glucose 310 H Calcium 9.6 Total Bilirubin 0.3 Direct Bilirubin 0.3 Neonat Total Bilirubin Not Reportable Neonat Direct Bilirubin Not Reportable Neonat Indirect Bili Not Reportable AST 15 ALT 25 Alkaline Phosphatase 133 H Total Protein 7.0 Albumin 4.2 Discharge - Discharge Clinical Impression: Leg pain, bilateral, Hx of diabetic neuropathy Condition: Stable Disposition: HOME, SELF-CARE Instructions: Diabetes ([facility]), Neuropathy ([facility]) Additional Instructions: Return immediately for any new or worsening symptoms Followup with your primary care provider, call tomorrow to make a followup appointment Eat a diabetic diet and take your diabetic medications as prescribed. Monitor your blood sugar and keep a log to present to your primary doctor. Prescriptions: RX: Gabapentin 100 mg PO TID PRN #15 capsule PRN Reason: Forms: Smoking Cessation Education Referrals: JERICHO SALINAS MD [Primary Care Provider] - Follow up tomorrow
[2017-09-17 16:51] VITALS: BP 138/70
--- NOTE | 2017-09-17 17:14 | XCELERA REPORT ---
[address] [address] Lower Extremity Venous Evaluation Name: TIFFANY HUTCHINSON Age: 52 yrs Gender: Female : 1965 Patient Status: Emergency Patient Location: ER Study Date: 09/17/2017 03:27 PM Procedure: Color flow and duplex imaging bilaterally of the veins of the lower extremities as well as the Common Femoral veins. Reason For Study: leg pain; eval dvt Ordering Physician: KASSY WILDER Performed By: Simon Huerta Right Sided Venous Evaluation Normal vessel filling wall to wall, compression and augmentation as well as Colour flow down to the infrageniculate veins. Left Sided Venous Evaluation Normal vessel filling wall to wall, compression and augmentation as well as Colour flow down to the infrageniculate veins. Interpretation Summary No duplex evidence of DVT or obstruction in the bilateral lower extremities. : KASSY WILDER [place]
== END 2017-09-17 16:51 | disposition home or self-care (01) ==
LOC: ER 12:18
DX: M79.605 Pain in left leg (principal); M79.604 Pain in right leg; F17.200 Nicotine dependence, unspecified, uncomplicated; E11.9 Type 2 diabetes mellitus without complications; I10 Essential (primary) hypertension; Z88.6 Allergy status to analgesic agent; Z88.0 Allergy status to penicillin; Z90.49 Acquired absence of other specified parts of digestive tract
CPT/HCPCS: 36415; 80053; 85025; 93970; 99284

== ENCOUNTER 2017-10-10 22:47 | Emergency (ER) | payer SELFPAY ==
--- NOTE | 2017-10-10 23:01 | ER Document Report ---
ED General - General Stated Complaint: BODY PAIN Time Seen by Provider: 10/10/17 22:59 Notes: Patient is a 52-year-old female presents with complaint of pain throughout her body. Pain is mostly in the left side. Said the pain goes across her back in her left upper chest and down both sides or her body but is worse on her left. She does go down left arm and onto the top of her left feet and into both legs. She is tearful and anxious. Patient also mentions she has a history of stroke. I did review her records as she has been seen here several times for stroke in the past. She has also been seen at [facility]. Her MRIs have always come back negative for stroke and or symptoms of stroke always seem to resolve. There is some concern that a lot of the patient's symptoms could be stress related. Patient does have known carotid artery disease. She says she just recently received a phone call that her surgery of her carotid arteries has been moved from this month to December. Denies any focal weakness or numbness. No headache. No other complaints at this time. TRAVEL OUTSIDE OF THE [place] IN LAST 30 DAYS: No - Related Data Allergies/Adverse Reactions: aspirin Allergy (Unknown, Verified 09/17/17 12:21) cephalexin [From Keflex] Allergy (Unknown, Verified 09/17/17 12:21) Penicillins Adverse Reaction (Verified 09/17/17 12:21) Past Medical History - Social History Smoking Status: Unknown if Ever Smoked Frequency of alcohol use: None Drug Abuse: None Family History: Reviewed & Not Pertinent - Past Medical History Cardiac Medical History: Reports: Hx Hypertension Pulmonary Medical History: Reports: Hx COPD Neurological Medical History: Reports: Hx Seizures Endocrine Medical History: Reports: Hx Diabetes Mellitus Type 2 Renal/ Medical History: Denies: Hx Peritoneal Dialysis Past Surgical History: Reports: Hx Section, Hx Cholecystectomy Review of Systems - Review of Systems Notes: My Normal Review Basic REVIEW OF SYSTEMS: CONSTITUTIONAL : Denies fever, chills, or sweats. Denies recent illness. EENT: Denies eye, ear, throat, or mouth pain or symptoms. Denies nasal or sinus congestion. CARDIOVASCULAR: Upper chest pain RESPIRATORY: Denies cough, cold, or chest congestion. Denies shortness of breath, difficulty breathing, or wheezing. GASTROINTESTINAL: Denies abdominal pain. Denies nausea, vomiting, or diarrhea. GENITOURINARY: Denies difficulty urinating, painful urination, burning, frequency, or blood in urine. MUSCULOSKELETAL: Pain in all 4 extremities that is worse on left. SKIN: Denies rash or skin lesions. NEUROLOGICAL: Denies altered mental status or loss of consciousness. Denies headache. Denies weakness or paralysis or loss of use of either side. Denies problems with gait or speech. Denies sensory or motor loss. ALL OTHER SYSTEMS REVIEWED AND NEGATIVE. Physical Exam - Vital signs Vitals: BP Pulse Ox 156/85 H 95 10/10/17 22:52 10/10/17 22:52 - Notes Notes: General Appearance: Well nourished, alert, cooperative, no acute distress, no obvious discomfort. Patient is constantly crying and tearful and anxious appearing. Vitals: reviewed, See vital signs table. Head: no swelling or tenderness to the head Eyes: PERRL, EOMI, Conjuctiva clear Mouth: No decreasd moisture Neck: Supple, patient over the lateral aspects of the neck. No carotid bruit on auscultation of the patient's neck. Chest wall: Pain palpation of her upper chest wall. Lungs: No wheezing, No rales, No rhonci, No accessory muscle use, good air exchange bilaterally. Heart: Normal rate, Regular rythm, No murmur, no rub Abdomen: Normal BS, soft, No rigidity, No abdominal tenderness, No guarding, no rebound, no abdominal masses, no organomegaly Extremities: strength 5/5 in all extremities, good pulses in all extremities, pain to palpation over all 4 extremities worse in the left. Suspicion of the patient's feet. When I go to check the patient's pulses in her feet she immediately screams before I even touch her feet and says "that hurts"., no edema. She has normal pulses in all 4 extremities. Good color in all 4 extremities. Good capillary refill in all digits. Skin: warm, dry, appropriate color, no rash Neuro: speech clear, oriented x 3, normal affect, responds appropriately to questions. Cranial nerves II through XII are intact. Distal sensation intact. As the patient was set up and she is able to grab a hold of me with her left arm grabbed a hold of her with her right arm and pull herself up. She has good strength in bilateral lower extremities. She has no focal neurologic deficits on exam. Course - Re-evaluation Re-evalutation: 10/11/17 00:16 Patient's pain has resolved without pain medicine. Improved with just receiving Ativan. Her heart rate was initially just over 100 when she arrived. Is now 89. She was initially little bit hypertensive but now her blood pressure is 129/86. She does have some hyperglycemia. I will give her a small dose of insulin. We will then reassess her and make sure that she is continued to have improvement of her symptoms. Improvement of her symptoms have been suggested a lot of her symptoms may be psychosomatic. 10/11/17 01:50 Mrs. Blankenship continues to look and feel improved. I feel she is safe to be discharged home. All her symptoms completely resolved with the Ativan. She now have pain. Her heart rate is 73. Her blood pressure is 128/75. Did not suspect aortic dissection as the patient symptoms were relieved with Ativan, her vital signs were normalized with Ativan, she has equal peripheral pulses in all 4 extremities, and she has normal mediastinum on chest x-ray. Suspect her symptoms are related to stress. She has been under a lot of stress and is felt anxious because she just found out that they delayed her surgery until December. I told the patient and that because she is safe to go home but she should have a low threshold to return to ER if she has recurrent worsening pain, any fevers, any chest pain, difficulty breathing, or she feels unwell in any way. Patient has been agree with plan and she will be discharged home. Dictation of this chart was performed using voice recognition software; therefore, there may be some unintended grammatical errors. - Vital Signs Vital signs: Temp Pulse Resp BP Pulse Ox 98.3 F 97 13 128/75 H 94 10/10/17 23:01 10/10/17 23:01 10/11/17 01:01 10/11/17 01:01 10/11/17 01:01 - Laboratory Result Diagrams: 10/10/17 23:12 10/10/17 23:12 Laboratory results interpreted by me: 10/10/17 10/10/17 23:12 23:12 WBC 13.6 H Absolute Neutrophils 10.3 H Potassium 3.4 L Carbon Dioxide 21 L Glucose 323 H Alkaline Phosphatase 139 H - EKG Interpretation by Me Additional EKG results interpreted by me: 10/10/17 23:00 EKG is reviewed and interpreted by me. EKG shows sinus rhythm with a rate of [address] segment elevation or depression. No ischemic T-wave inversions. IL interval, QRS duration are within normal range. QTc interval is prolonged at 506 ms. Discharge - Discharge Clinical Impression: Stress and adjustment reaction, Total body pain Condition: Good Disposition: HOME, SELF-CARE Additional Instructions: PLease follow up with your doctor on Thursday or Thursday for reevaluation. Please rest and relax of the next few days. please return to the ER immediately if you have worsening recurrent pain, chest pain, difficulty breathing, or feel unwell. Referrals: JERICHO SALINAS MD [NO LOCAL MD] - 10/12/17
[2017-10-10] MEDS ORDERED: LORAZEPAM INJ 2 MG/1 ML VIAL IV ONE (23:10)
[2017-10-10] MEDS ORDERED: PROMETHAZINE HCL INJ 25 MG/1 ML VIAL IM ONE (23:11)
[2017-10-10 23:26] LABS: ABSOLUTE BASOPHILS # (AUTO) 0.1 10^3/uL (0.0-0.2); ABSOLUTE EOSINOPHILS # (AUTO) 0.3 10^3/uL (0.0-0.6); ABSOLUTE LYMPHOCYTES (AUTO) 2.2 10^3/uL (0.5-4.7); ABSOLUTE MONOCYTES (AUTO) 0.7 10^3/uL (0.1-1.4); ABSOLUTE NEUT (AUTO) 10.3 10^3/uL (1.7-8.2); BASOPHILS % (AUTO) 0.4 % (0-2); EOSINOPHILS % (AUTO) 2.2 % (0-6); HEMOGLOBIN 12.7 g/dL (12.0-15.5); LYMPHOCYTES % (AUTO) 16.4 % (13-45); MEAN CORPUSCULAR HEMOGLOBIN 27.7 pg (27.0-33.4); MEAN CORPUSCULAR HGB CONC 34.4 g/dL (32.0-36.0); MEAN CORPUSCULAR VOLUME 81 fl (80-97); MONOCYTES % (AUTO) 5.1 % (3-13); PLATELET COUNT 195 10^3/uL (150-450); RED BLOOD COUNT 4.59 10^6/uL (3.72-5.28); RED CELL DISTRIBUTION WIDTH 13.6 % (11.5-14.0); SEGMENTED NEUTROPHILS % (AUTO) 75.9 % (42-78); TOTAL CELLS COUNTED % (AUTO) 100 %; WHITE BLOOD COUNT 13.6 10^3/uL (4.0-10.5)
[2017-10-10 23:38] LABS: ALANINE AMINOTRANSFERASE 32 U/L (9-52); ALBUMIN 3.8 g/dL (3.5-5.0); ALKALINE PHOSPHATASE 139 U/L (38-126); ANION GAP 12 (5-19); ASPARTATE AMINO TRANSFERASE 28 U/L (14-36); BILIRUBIN,DIRECT 0.4 mg/dL (0.0-0.4); BILIRUBIN,TOTAL 0.4 mg/dL (0.2-1.3); BLOOD UREA NITROGEN 14 mg/dL (7-20); CALCIUM 8.8 mg/dL (8.4-10.2); CARBON DIOXIDE 21 mmol/L (22-30); CHLORIDE 104 mmol/L (98-107); GLUCOSE 323 mg/dL (75-110); POTASSIUM 3.4 mmol/L (3.6-5.0); SODIUM 137.2 mmol/L (137-145); TOTAL PROTEIN 6.5 g/dL (6.3-8.2)
--- NOTE | 2017-10-10 23:43 | RADIOLOGY REPORT (SQ) ---
Clinical History : chest pain , Exam : Portable AP view of the chest 10/10/2017 11:10 PM CDT Comparisons : Portable AP view of the chest September 08, 2017 Findings : The lungs are clear without focal consolidation or pleural effusion. The heart is normal in size. The mediastinal contours are normal in appearance. The thoracic spine is age appropriate. The shoulders are unremarkable. Limited evaluation of the upper abdomen demonstrates no gross abnormalities. Impression: No acute cardiopulmonary disease (stable appearing chest).
[2017-10-11] MEDS ORDERED: INSULIN REG, HUMAN 100 UNIT/ML 3 ML VIAL (PYX) SUBCUT ONE (00:17)
[2017-10-11 01:42] VITALS: BP 128/75
--- NOTE | 2017-10-11 07:50 | EKG REPORT ---
SEVERITY:- ABNORMAL ECG - SINUS RHYTHM BORDERLINE INFERIOR Q WAVES BORDERLINE R WAVE PROGRESSION, ANTERIOR LEADS BORDERLINE PROLONGED QT INTERVAL : Confirmed by: Armen Iverson MD 11-Oct-2017 07:48:45
== END 2017-10-11 02:13 | disposition home or self-care (01) ==
LOC: ER 22:47
DX: M79.1 Myalgia (principal); F43.29 Adjustment disorder with other symptoms; E11.65 Type 2 diabetes mellitus with hyperglycemia
CPT/HCPCS: 93005; 99284; 96372; 96374; 36415; 82962; 85025; 80053; 84484; 71045; 93010; J2060; J1815; J2550

== ENCOUNTER 2017-10-14 23:14 | Emergency (ER) | payer SELFPAY ==
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
[2017-10-15] MEDS ORDERED: HYDROCODONE/ACETAMINOPHEN 5-325 MG TABLET PO ONE (02:15)
[2017-10-15] MEDS ORDERED: ONDANSETRON 4 MG TAB.RAPDIS PO ONE (02:44)
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
[2017-10-15 04:10] VITALS: BP 91/50
== END 2017-10-15 04:07 | disposition home or self-care (01) ==
LOC: ER 23:14
DX: S39.012A Strain of muscle, fascia and tendon of lower back, initial encounter (principal); X50.0XXA Overexertion from strenuous movement or load, initial encounter; I10 Essential (primary) hypertension; J44.9 Chronic obstructive pulmonary disease, unspecified; E11.9 Type 2 diabetes mellitus without complications; Z90.49 Acquired absence of other specified parts of digestive tract; Z88.6 Allergy status to analgesic agent; Z88.0 Allergy status to penicillin
CPT/HCPCS: 99283; 73610; 73502; 72110; S0119

== ENCOUNTER 2017-10-17 09:39 | Emergency (ER) | payer OTHER ==
--- NOTE | 2017-10-17 10:24 | RADIOLOGY REPORT (SQ) ---
EXAM DESCRIPTION: CHEST SINGLE VIEW COMPLETED DATE/TIME: 10/17/2017 10:10 am REASON FOR STUDY: cp COMPARISON: 10/10/2017 EXAM PARAMETERS: NUMBER OF VIEWS: One view. TECHNIQUE: Single frontal radiographic view of the chest acquired. RADIATION DOSE: NA LIMITATIONS: None. FINDINGS: LUNGS AND PLEURA: No opacities, masses or pneumothorax. No pleural effusion. MEDIASTINUM AND HILAR STRUCTURES: No masses. Contour normal. HEART AND VASCULAR STRUCTURES: Heart normal in size. Normal vasculature. BONES: No acute findings. HARDWARE: None in the chest. OTHER: No other significant finding. IMPRESSION: NO ACUTE RADIOGRAPHIC FINDING IN THE CHEST. TECHNICAL DOCUMENTATION: JOB ID: [id number] [employer]- All Rights Reserved Reading location - IP/workstation name: [email or web address]
[2017-10-17 11:01] LABS: ABSOLUTE BASOPHILS # (AUTO) 0.1 10^3/uL (0.0-0.2); ABSOLUTE EOSINOPHILS # (AUTO) 0.1 10^3/uL (0.0-0.6); ABSOLUTE LYMPHOCYTES (AUTO) 2.2 10^3/uL (0.5-4.7); ABSOLUTE MONOCYTES (AUTO) 0.4 10^3/uL (0.1-1.4); ABSOLUTE NEUT (AUTO) 6.4 10^3/uL (1.7-8.2); BASOPHILS % (AUTO) 0.6 % (0-2); EOSINOPHILS % (AUTO) 1.4 % (0-6); HEMATOCRIT 38.5 % (36.0-47.0); HEMOGLOBIN 13.3 g/dL (12.0-15.5); LYMPHOCYTES % (AUTO) 24.2 % (13-45); MEAN CORPUSCULAR HEMOGLOBIN 27.9 pg (27.0-33.4); MEAN CORPUSCULAR HGB CONC 34.6 g/dL (32.0-36.0); MEAN CORPUSCULAR VOLUME 81 fl (80-97); PLATELET COUNT 203 10^3/uL (150-450); RED BLOOD COUNT 4.78 10^6/uL (3.72-5.28); RED CELL DISTRIBUTION WIDTH 13.4 % (11.5-14.0); SEGMENTED NEUTROPHILS % (AUTO) 69.8 % (42-78); TOTAL CELLS COUNTED % (AUTO) 100 %; WHITE BLOOD COUNT 9.2 10^3/uL (4.0-10.5)
[2017-10-17 11:17] LABS: ALANINE AMINOTRANSFERASE 33 U/L (9-52); ALKALINE PHOSPHATASE 125 U/L (38-126); ANION GAP 13 (5-19); ASPARTATE AMINO TRANSFERASE 21 U/L (14-36); BILIRUBIN,DIRECT 0.2 mg/dL (0.0-0.4); BILIRUBIN,TOTAL 0.3 mg/dL (0.2-1.3); BLOOD UREA NITROGEN 17 mg/dL (7-20); CALCIUM 9.6 mg/dL (8.4-10.2); CARBON DIOXIDE 23 mmol/L (22-30); CHLORIDE 103 mmol/L (98-107); CREATINE KINASE 74 U/L (30-135); GLUCOSE 290 mg/dL (75-110); POTASSIUM 4.5 mmol/L (3.6-5.0); SODIUM 139.1 mmol/L (137-145); TOTAL PROTEIN 6.9 g/dL (6.3-8.2)
[2017-10-17 11:28] LABS: CREATINE KINASE MB 0.84 ng/mL (<4.55)
[2017-10-17 11:34] LABS: TROPONIN I < 0.012 ng/mL
[2017-10-17] MEDS ORDERED: METOCLOPRAMIDE HCL ORAL SOLN 10 MG/10 ML UDCUP PO ONE (11:53)
[2017-10-17] MEDS ORDERED: LIDOCAINE 2% VISCOUS SOLN 20 ML UDCUP PO ONE (11:53)
[2017-10-17] MEDS ORDERED: MAG HYDROX/AL HYDROX/SIMETH SUSP 30 ML UDCUP PO ONE (11:53)
--- NOTE | 2017-10-17 14:04 | ER Document Report ---
ED General - General Chief Complaint: Chest Pain Stated Complaint: CHEST PAIN Time Seen by Provider: 10/17/17 10:58 TRAVEL OUTSIDE OF THE [place] IN LAST 30 DAYS: No - HPI Patient complains to provider of: Chest pain Notes: Is patient having left-sided chest pain and nausea vomiting diarrhea onset started earlierThis point. Patient states did have a recent fall was evaluated here in the ER. Patient states pain with movement. Patient is currently residing in a local alf system. Denies any recent travel recent antibiotics. Patient resting comfortably upon my evaluation - Related Data Allergies/Adverse Reactions: aspirin Allergy (Unknown, Verified 09/17/17 12:21) cephalexin [From Keflex] Allergy (Unknown, Verified 09/17/17 12:21) Penicillins Adverse Reaction (Verified 09/17/17 12:21) Past Medical History - Social History Smoking Status: Former Smoker Family History: Reviewed & Not Pertinent Patient has suicidal ideation: No Patient has homicidal ideation: No - Past Medical History Cardiac Medical History: Reports: Hx Hypertension Pulmonary Medical History: Reports: Hx COPD Neurological Medical History: Reports: Hx Seizures Endocrine Medical History: Reports: Hx Diabetes Mellitus Type 2 Renal/ Medical History: Denies: Hx Peritoneal Dialysis Past Surgical History: Reports: Hx Section, Hx Cholecystectomy Review of Systems - Review of Systems Constitutional: No symptoms reported EENT: No symptoms reported Cardiovascular: Chest pain Respiratory: No symptoms reported Gastrointestinal: No symptoms reported Genitourinary: No symptoms reported Female Genitourinary: No symptoms reported Musculoskeletal: No symptoms reported Skin: No symptoms reported Hematologic/Lymphatic: No symptoms reported Neurological/Psychological: No symptoms reported -: Yes All other systems reviewed and negative Physical Exam - Vital signs Vitals: Resp BP Pulse Ox 16 113/70 95 10/17/17 11:26 10/17/17 11:26 10/17/17 11:26 Interpretation: Normal - General General appearance: Appears well, Alert - HEENT Head: Normocephalic, Atraumatic Eyes: Normal Pupils: PERRL Notes: Wart to the left nare - Respiratory Respiratory status: No respiratory distress Chest status: Tender - Tenderness palpation left-sided chest reproduces patient' s pain Breath sounds: Normal Chest palpation: Normal - Cardiovascular Rhythm: Regular Heart sounds: Normal auscultation Murmur: No - Abdominal Inspection: Normal Distension: No distension Bowel sounds: Normal Tenderness: Nontender Organomegaly: No organomegaly - Back Back: Normal, Nontender - Extremities General upper extremity: Normal inspection, Nontender, Normal color, Normal ROM , Normal temperature General lower extremity: Normal inspection, Nontender, Normal color, Normal ROM , Normal temperature, Normal weight bearing. No: Shantel's sign - Neurological Neuro grossly intact: Yes Cognition: Normal Orientation: AAOx4 [place] Coma Scale Eye Opening: Spontaneous [place] Coma Scale Verbal: Oriented [place] Coma Scale Motor: Obeys Commands [place] Coma Scale Total: 15 Speech: Normal Motor strength normal: LUE, RUE, LLE, RLE Sensory: Normal - Psychological Associated symptoms: Normal affect, Normal mood - Skin Skin Temperature: Warm Skin Moisture: Dry Skin Color: Normal Course - Re-evaluation Re-evalutation: 10/17/17 15:51 The patient has atypical chest pain as the patient's chest pain is not suggestive of pulmonary embolus, cardiac ischemia, aortic dissection, or other serious etiology. Given the extremely low risk of these diagnoses further testing and evaluation for these possibilities does not appear to be indicated at this time. The patient has been instructed to return if the symptoms worsen or change in any way. - Vital Signs Vital signs: Temp Pulse Resp BP Pulse Ox 16 127/79 H 95 10/17/17 14:01 10/17/17 14:01 10/17/17 14:01 - Laboratory Result Diagrams: 10/17/17 10:48 10/17/17 10:48 Laboratory results interpreted by me: 10/17/17 10:48 Glucose 290 H Discharge - Discharge Clinical Impression: Chest wall pain Condition: Good Disposition: HOME, SELF-CARE Instructions: Anti-Inflammatory Medication ([facility]), Chest Wall Pain ([facility]) Additional Instructions: At this time your EKG and laboratories studies show no signs of cardiac damage no signs of heart attack chest x-ray shows no signs of any infection causing your chest pain. Your examination is consistent with chest wall pain. Would recommend taking Tylenol and anti-inflammatory medication such as Motrin for pain control. Follow-up with your primary care physician as needed return to ER for any other concerns.
[2017-10-17 14:09] VITALS: BP 127/79
--- NOTE | 2017-10-17 21:48 | EKG REPORT ---
SEVERITY:- BORDERLINE ECG - SINUS RHYTHM BORDERLINE PROLONGED QT INTERVAL : Confirmed by: Christine Connolly MD 17-Oct-2017 21:47:40
== END 2017-10-17 14:14 | disposition home or self-care (01) ==
LOC: ER 09:39
DX: R07.89 Other chest pain (principal); R11.2 Nausea with vomiting, unspecified; R19.7 Diarrhea, unspecified; I10 Essential (primary) hypertension; E11.9 Type 2 diabetes mellitus without complications; J44.9 Chronic obstructive pulmonary disease, unspecified; Z91.81 History of falling; Z88.6 Allergy status to analgesic agent; Z88.1 Allergy status to other antibiotic agents; Z87.891 Personal history of nicotine dependence
CPT/HCPCS: 93005; 99285; 36415; 82553; 82550; 85025; 80053; 84484; 71045; 93010; J3490

== ENCOUNTER 2017-12-01 18:43 | Emergency (ER) | payer SELFPAY ==
[2017-12-01 19:28] VITALS: BP 121/74
--- NOTE | 2017-12-01 19:42 | RADIOLOGY REPORT (SQ) ---
EXAM DESCRIPTION: KNEE RIGHT 4 VIEWS COMPLETED DATE/TIME: 12/01/2017 7:16 pm REASON FOR STUDY: Pain s/p fall COMPARISON: None. NUMBER OF VIEWS: Four views. TECHNIQUE: AP, lateral, and both oblique radiographic images acquired of the right knee. LIMITATIONS: None. FINDINGS: MINERALIZATION: Normal. BONES: No acute fracture or dislocation. No worrisome bone lesions. JOINT: No effusion. SOFT TISSUES: No soft tissue swelling. No radio-opaque foreign body. OTHER: No other significant finding. IMPRESSION: NEGATIVE STUDY OF THE RIGHT KNEE. NO RADIOGRAPHIC EVIDENCE OF ACUTE INJURY. TECHNICAL DOCUMENTATION: JOB ID: [id number] [employer]- All Rights Reserved Reading location - IP/workstation name: [email or web address]
--- NOTE | 2017-12-01 19:54 | ER Document Report ---
HPI - HPI Patient complains to provider of: Right knee injury Onset: Other - 5 PM Onset/Duration: Sudden Pain Level: 4 Context: 52-year-old female uses a cane due to chronic low back pain slipped on water and twisted and fell on her right knee. She has an abrasion in the anterior knee and she has pain in the lateral hurts to walk on it. She states her tetanus is current. Associated Symptoms: None Exacerbated by: Movement, Walking Relieved by: Denies Similar symptoms previously: No Recently seen / treated by doctor: No - ROS ROS below otherwise negative: Yes Systems Reviewed and Negative: Yes All other systems reviewed and negative Past Medical History - General Information source: Patient - Social History Smoking Status: Current Every Day Smoker Lives with: Spouse/Significant other Family History: Reviewed & Not Pertinent - Past Medical History Cardiac Medical History: Reports: Hx Hypertension Pulmonary Medical History: Reports: Hx COPD Neurological Medical History: Reports: Hx Seizures Endocrine Medical History: Reports: Hx Diabetes Mellitus Type 2 Renal/ Medical History: Reports: Other - Recent diagnosis of uterine cancer Past Surgical History: Reports: Hx Section, Hx Cholecystectomy Vertical Provider Document - CONSTITUTIONAL Agree With Documented VS: Yes Exam Limitations: No Limitations - INFECTION CONTROL TRAVEL OUTSIDE OF THE [place] IN LAST 30 DAYS: No - MUSCULOSKELETAL/EXTREMETIES Musculoskeletal/Extremeties: MAEW, FROM, Tender - lateral right knee, no deformity, no effusion, patellar tendon is intact, superficial abrasion anterior right knee. - NEURO Level of Consciousness: Awake, Alert Motor/Sensory: No Motor Deficit, No Sensory Deficit Course - Re-evaluation Re-evalutation: 12/01/17 20:04 X-rays negative per radiologist, I also looked at the films and they looked negative as well. - Vital Signs Vital signs: Temp Pulse Resp BP Pulse Ox 98.3 F 85 14 121/74 97 12/01/17 19:27 12/01/17 19:27 12/01/17 19:27 12/01/17 19:27 12/01/17 19:27 Procedures - Immobilization Right Knee Time completed: 20:10 Pre-Proc Neuro Vasc Exam: Normal Immobilizer type: Crutches, Knee immobilizer Performed by: PCT Post-Proc Neuro Vasc Exam: Normal Alignment checked and good: Yes Discharge - Discharge Clinical Impression: contusion, Abrasion Sprain of right knee Qualifiers: Encounter type: initial encounter Involved ligament of knee: unspecified ligament Qualified Code(s): S83.91XA - Sprain of unspecified site of right knee , initial encounter Condition: Good Disposition: HOME, SELF-CARE Instructions: Sprained Knee ([facility]), Knee Immobilizing Splint ([facility]), Ice & Elevation ([facility]), Use of Crutches ([facility]), Abrasions ([facility]), Antibiotic Ointment Protection ([facility]) Additional Instructions: Keep the abrasion clean, use bacitracin and a nonstick dressing Knee immobilizer this week Crutches this week See orthopedic doctor if the knee pain persists The x-ray was read as negative for the radiologist and a copy has been given to you Tramadol 50 mg every 4-6 hours as needed for pain Tylenol up to 4000 mg a day for pain Return to the emergency room any concerns Prescriptions: Tramadol HCl [Ultram 50 mg Tablet] 50 mg PO ASDIR PRN #15 tablet PRN Reason: Referrals: AMY VICENTE MD [ACTIVE STAFF] - Follow up as needed
[2017-12-01] MEDS ORDERED: ACETAMINOPHEN 325 MG TABLET PO ONE (20:00)
[2017-12-01] MEDS ORDERED: TRAMADOL HCL 50 MG TABLET PO ONE (20:00)
== END 2017-12-01 20:16 | disposition home or self-care (01) ==
LOC: ER 18:43
DX: S83.91XA Sprain of unspecified site of right knee, initial encounter (principal); W01.0XXA Fall on same level from slipping, tripping and stumbling without subsequent striking against object, initial encounter; M54.9 Dorsalgia, unspecified; G89.29 Other chronic pain; I10 Essential (primary) hypertension; J44.9 Chronic obstructive pulmonary disease, unspecified; E11.9 Type 2 diabetes mellitus without complications; F17.200 Nicotine dependence, unspecified, uncomplicated
CPT/HCPCS: 99283; 73564; L1830

== ENCOUNTER 2018-02-11 14:39 | Emergency (ER) | payer SELFPAY ==
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
--- NOTE | 2018-02-11 15:06 | RADIOLOGY REPORT (SQ) ---
EXAM DESCRIPTION: CT HEAD WITHOUT COMPLETED DATE/TIME: 02/11/2018 2:50 pm REASON FOR STUDY: sudden onset weaknes, LOC and loss of speech COMPARISON: None. TECHNIQUE: Axial images acquired through the brain without intravenous contrast. Images reviewed wi th bone, brain and subdural windows. Additional sagittal and coronal reconstructions were generated. Images stored on PACS. All CT scanners at this facility use dose modulation, iterative reconstruction, and/or weight based d osing when appropriate to reduce radiation dose to as low as reasonably achievable (ALARA). [facility]: Dose Right [facility]: CareDose [facility]: Dose Right [facility]: Teradose 4D [facility]: ProductGram RADIATION DOSE: 53.2 mGy. LIMITATIONS: None. FINDINGS: VENTRICLES: Normal size and contour. CEREBRUM: No masses. No hemorrhage. No midline shift. No evidence for acute infarction. Normal gra y/white matter differentiation. No areas of low density in the white matter. CEREBELLUM: No masses. No hemorrhage. No alteration of density. No evidence for acute infarction. EXTRAAXIAL SPACES: No fluid collections. No masses. ORBITS AND GLOBE: No intra- or extraconal masses. Normal contour of globe without masses. CALVARIUM: No fracture. PARANASAL SINUSES: No fluid or mucosal thickening. SOFT TISSUES: No mass or hematoma. OTHER: No other significant finding. IMPRESSION: NORMAL BRAIN CT WITHOUT CONTRAST. EVIDENCE OF ACUTE STROKE: NO. COMMENT: Pertinent findings on the imaging study reported as a CRITICAL RESULT to JORGE ALBERTO Dos Santos t14:50 on 02/11/2018. Category of Critical Result: CT code stroke Quality ID # [id number]: Final reports with documentation of one or more dose reduction techniques (e.g., Au tomated exposure control, adjustment of the mA and/or kV according to patient size, use of iterative reconstruction technique) TECHNICAL DOCUMENTATION: JOB ID: [id number] [employer]- All Rights Reserved Reading location - IP/workstation name: [email or web address]
[2018-02-11 15:11] LABS: ABSOLUTE EOSINOPHILS # (AUTO) 0.2 10^3/uL (0.0-0.6); ABSOLUTE LYMPHOCYTES (AUTO) 1.8 10^3/uL (0.5-4.7); ABSOLUTE MONOCYTES (AUTO) 0.4 10^3/uL (0.1-1.4); ABSOLUTE NEUT (AUTO) 5.8 10^3/uL (1.7-8.2); BASOPHILS % (AUTO) 0.6 % (0-2); HEMATOCRIT 39.4 % (36.0-47.0); HEMOGLOBIN 13.8 g/dL (12.0-15.5); LYMPHOCYTES % (AUTO) 22.1 % (13-45); MEAN CORPUSCULAR HEMOGLOBIN 28.4 pg (27.0-33.4); MEAN CORPUSCULAR VOLUME 81 fl (80-97); MONOCYTES % (AUTO) 5.2 % (3-13); PLATELET COUNT 174 10^3/uL (150-450); RED BLOOD COUNT 4.85 10^6/uL (3.72-5.28); SEGMENTED NEUTROPHILS % (AUTO) 70.1 % (42-78); TOTAL CELLS COUNTED % (AUTO) 100 %; WHITE BLOOD COUNT 8.2 10^3/uL (4.0-10.5)
[2018-02-11 15:14] LABS: INTERNATIONAL RATION (INR) 0.87; PARTIAL THROMBOPLASTIN TIME 25.8 SEC (23.5-35.8); PROTHROMBIN TIME 12.3 SEC (11.4-15.4)
--- NOTE | 2018-02-11 15:26 | RADIOLOGY REPORT (SQ) ---
EXAM DESCRIPTION: CHEST SINGLE VIEW COMPLETED DATE/TIME: 02/11/2018 3:16 pm REASON FOR STUDY: sudden onset weakness, LOC and loss of speech COMPARISON: 10/17/2017. EXAM PARAMETERS: NUMBER OF VIEWS: One view. TECHNIQUE: Single frontal radiographic view of the chest acquired. RADIATION DOSE: NA LIMITATIONS: None. FINDINGS: LUNGS AND PLEURA: No opacities, masses or pneumothorax. No pleural effusion. MEDIASTINUM AND HILAR STRUCTURES: No masses. Contour normal. HEART AND VASCULAR STRUCTURES: Heart normal in size. Normal vasculature. BONES: No acute findings. HARDWARE: None in the chest. OTHER: No other significant finding. IMPRESSION: NO ACUTE RADIOGRAPHIC FINDING IN THE CHEST. TECHNICAL DOCUMENTATION: JOB ID: [id number] [employer]- All Rights Reserved Reading location - IP/workstation name: [email or web address]
[2018-02-11 15:28] LABS: ALANINE AMINOTRANSFERASE 28 U/L (9-52); ALBUMIN 4.2 g/dL (3.5-5.0); ALKALINE PHOSPHATASE 129 U/L (38-126); ANION GAP 16 (5-19); ASPARTATE AMINO TRANSFERASE 22 U/L (14-36); BILIRUBIN,DIRECT 0.1 mg/dL (0.0-0.4); BILIRUBIN,TOTAL 0.4 mg/dL (0.2-1.3); BLOOD UREA NITROGEN 12 mg/dL (7-20); CALCIUM 9.5 mg/dL (8.4-10.2); CARBON DIOXIDE 20 mmol/L (22-30); CHLORIDE 102 mmol/L (98-107); CREATINE KINASE 84 U/L (30-135); GLUCOSE 346 mg/dL (75-110); POTASSIUM 3.7 mmol/L (3.6-5.0); SODIUM 138.3 mmol/L (137-145)
[2018-02-11] MEDS ORDERED: ASPIRIN 300 MG SUPP, RECTAL PR ONE (15:39)
[2018-02-11 15:44] LABS: CREATINE KINASE MB 0.93 ng/mL (<4.55)
[2018-02-11 15:46] LABS: TROPONIN I < 0.012 ng/mL
[2018-02-11] MEDS ORDERED: MORPHINE SULFATE 10 MG/ML INJ IV ONE (16:09)
--- NOTE | 2018-02-11 16:15 | RADIOLOGY REPORT (SQ) ---
EXAM DESCRIPTION: CTA NECK; CTA HEAD COMPLETED DATE/TIME: 02/11/2018 3:45 pm REASON FOR STUDY: left sided sudden onset weakness COMPARISON: None. TECHNIQUE: Axial dynamic scanning technique with dynamic contrast enhancement through the extra-aircraft time clerk nial carotid and vertebral arteries. Multiplanar reconstruction. 3-D MIPS and Volume-rendered imag es acquired at the workstation and saved to PACS. Images are reviewed in soft tissue, bone, lung w indows. Axial dynamic scanning technique with dynamic contrast enhancement through the intra-cranial carotid and vertebral arteries. Multiplanar reconstruction. 3-D MIPS and Volume-rendered images acquired at the workstation and saved to PACS. Images are reviewed in soft tissue, bone, lung windows. All CT scanners at this facility use dose modulation, iterative reconstruction, and/or weight based d osing when appropriate to reduce radiation dose to as low as reasonably achievable (ALARA). [facility]: Dose Right [facility]: CareDose [facility]: Dose Right [facility]: Teradose 4D [facility]: Jag.ag CONTRAST TYPE AND DOSE: contrast/concentration: Isovue 350.00 mg/ml; Total Contrast Delivered: 70.0 ml; Total Saline Delivered: 75.0 ml RENAL FUNCTION: Deferred by Emergency Physicians LIMITATIONS: None. FINDINGS: EXTRACRANIAL CIRCULATION AORTIC ARCH: Normal three-vessel origin. Bilateral subclavian arteries are patent. No dissection. RIGHT CAROTIDS: Patent common, internal and external carotid arteries. No dissection. There is 50 to 69% narrowing of the proximal right ICA at the carotid bifurcation from calcific plaque. RIGHT VERTEBRAL: Patent. No dissection. Diffusely small, non dominant. LEFT CAROTIDS: Patent common, internal and external carotid arteries. No dissection. Less than 50% narrowing of the proximal left ICA at the carotid bifurcation from noncalcific plaque LEFT VERTEBRAL: Patent. No dissection. Left vertebral artery dominant OTHER: Airway patent. No neck masses or adenopathy. No significant degenerative disc changes in the cervical spine. INTRACRANIAL CIRCULATION: ANTERIOR CIRCULATION: Bilateral intracranial carotid arteries are widely patent. Normal contrast en hancement of the bilateral anterior and middle cerebral arteries. origin right posterior cereb ral artery, an anatomic variant. No aneurysm or vascular malformation POSTERIOR CIRCULATION: Patent right and left distal intracranial vertebral artery, cerebellar and ba silar artery. Patent left posterior communicating artery. No aneurysm or vascular malformation BRAIN PARENCHYMA: No acute findings. OTHER: 3-D reconstructions confirm findings. Report called to Dr Dickey, 1550 hours, 02/21/2018 IMPRESSION: No redding of [place] stenosis, vascular malformation, or aneurysm. 50 to 69% diameter stenosis proximal right ICA at the carotid bifurcation from calcific plaque. Less than 50% narrowing of the proximal left ICA at the carotid bifurcation from non calcific plaque No CTA evidence of cervical carotid or cervical vertebral artery dissection COMMENT: Quality ID #[id number]: Measurements of distal internal carotid diameter were used as the denomina tor for stenosis measurement. TECHNICAL DOCUMENTATION: JOB ID: [id number] Quality ID # 436: Final reports with documentation of one or more dose reduction techniques (e.g., Au tomated exposure control, adjustment of the mA and/or kV according to patient size, use of iterative reconstruction technique) 2010 [employer]- All Rights Reserved Reading location - IP/workstation name: [email or web address]
--- NOTE | 2018-02-11 16:15 | RADIOLOGY REPORT (SQ) ---
EXAM DESCRIPTION: CTA NECK; CTA HEAD COMPLETED DATE/TIME: 02/11/2018 3:45 pm REASON FOR STUDY: left sided sudden onset weakness COMPARISON: None. TECHNIQUE: Axial dynamic scanning technique with dynamic contrast enhancement through the extra-craft manager nial carotid and vertebral arteries. Multiplanar reconstruction. 3-D MIPS and Volume-rendered imag es acquired at the workstation and saved to PACS. Images are reviewed in soft tissue, bone, lung w indows. Axial dynamic scanning technique with dynamic contrast enhancement through the intra-cranial carotid and vertebral arteries. Multiplanar reconstruction. 3-D MIPS and Volume-rendered images acquired at the workstation and saved to PACS. Images are reviewed in soft tissue, bone, lung windows. All CT scanners at this facility use dose modulation, iterative reconstruction, and/or weight based d osing when appropriate to reduce radiation dose to as low as reasonably achievable (ALARA). [facility]: Dose Right [facility]: CareDose [facility]: Dose Right [facility]: Teradose 4D [facility]: [employer] CONTRAST TYPE AND DOSE: contrast/concentration: Isovue 350.00 mg/ml; Total Contrast Delivered: 70.0 ml; Total Saline Delivered: 75.0 ml RENAL FUNCTION: Deferred by Emergency Physicians LIMITATIONS: None. FINDINGS: EXTRACRANIAL CIRCULATION AORTIC ARCH: Normal three-vessel origin. Bilateral subclavian arteries are patent. No dissection. RIGHT CAROTIDS: Patent common, internal and external carotid arteries. No dissection. There is 50 to 69% narrowing of the proximal right ICA at the carotid bifurcation from calcific plaque. RIGHT VERTEBRAL: Patent. No dissection. Diffusely small, non dominant. LEFT CAROTIDS: Patent common, internal and external carotid arteries. No dissection. Less than 50% narrowing of the proximal left ICA at the carotid bifurcation from noncalcific plaque LEFT VERTEBRAL: Patent. No dissection. Left vertebral artery dominant OTHER: Airway patent. No neck masses or adenopathy. No significant degenerative disc changes in the cervical spine. INTRACRANIAL CIRCULATION: ANTERIOR CIRCULATION: Bilateral intracranial carotid arteries are widely patent. Normal contrast en hancement of the bilateral anterior and middle cerebral arteries. origin right posterior cereb ral artery, an anatomic variant. No aneurysm or vascular malformation POSTERIOR CIRCULATION: Patent right and left distal intracranial vertebral artery, cerebellar and ba silar artery. Patent left posterior communicating artery. No aneurysm or vascular malformation BRAIN PARENCHYMA: No acute findings. OTHER: 3-D reconstructions confirm findings. Report called to Dr Dickey, 1550 hours, 02/21/2018 IMPRESSION: No akhiok of [place] stenosis, vascular malformation, or aneurysm. 50 to 69% diameter stenosis proximal right ICA at the carotid bifurcation from calcific plaque. Less than 50% narrowing of the proximal left ICA at the carotid bifurcation from non calcific plaque No CTA evidence of cervical carotid or cervical vertebral artery dissection COMMENT: Quality ID #195: Measurements of distal internal carotid diameter were used as the denomina tor for stenosis measurement. TECHNICAL DOCUMENTATION: JOB ID: [id number] Quality ID # 436: Final reports with documentation of one or more dose reduction techniques (e.g., Au tomated exposure control, adjustment of the mA and/or kV according to patient size, use of iterative reconstruction technique) 2010 [employer]- All Rights Reserved Reading location - IP/workstation name: [email or web address]
[2018-02-11 17:14] VITALS: BP 122/79
--- NOTE | 2018-02-11 18:13 | EKG REPORT ---
SEVERITY:- BORDERLINE ECG - SINUS RHYTHM : Confirmed by: Armen Iverson MD 11-Feb-2018 18:13:30
== END 2018-02-11 17:10 | disposition short-term general hospital (02) ==
LOC: ER 14:39
DX: I63.9 Cerebral infarction, unspecified (principal); R29.715 NIHSS score 15; R55 Syncope and collapse; R11.0 Nausea; F17.210 Nicotine dependence, cigarettes, uncomplicated; I10 Essential (primary) hypertension; J44.9 Chronic obstructive pulmonary disease, unspecified; E11.9 Type 2 diabetes mellitus without complications; Z86.73 Personal history of transient ischemic attack (TIA), and cerebral infarction without residual deficits; Z88.0 Allergy status to penicillin; Z90.49 Acquired absence of other specified parts of digestive tract; Z88.6 Allergy status to analgesic agent
CPT/HCPCS: 93005; 99285; 96374; 36415; 82553; 82962; 82550; 85025; 85610; 85730; 80053; 84484; 71045; 70450; 70496; 70498; 93010; J2270

== ENCOUNTER 2018-03-23 23:56 | Emergency (ER) | payer SELFPAY ==
[2018-03-24] MEDS ORDERED: HYDROCODONE/ACETAMINOPHEN 7.5-325 MG TABLET PO ONE (01:19)
[2018-03-24] MEDS ORDERED: CLINDAMYCIN HCL 150 MG CAPSULE PO ONE (01:20)
[2018-03-24 01:23] VITALS: BP 133/71
--- NOTE | 2018-03-24 01:27 | ER Document Report ---
HPI - HPI Patient complains to provider of: toothache Time Seen by Provider: 03/24/18 00:14 Pain Level: 4 Context: Patient is a 52-year-old female presents to the emergency department complaining of generalized tooth pain. Patient states she has had tooth pain since 1800 hrs. this evening. Patient states she has tried Orajel and also took Tylenol at 1830. Patient states she has not been to a dentist in over 10 years. Patient denies fever. Past medical history: CVA, CT, hypertension, hyperlipidemia, seizures, diabetes Medications: Depakote, lisinopril, Plavix Allergies: Keflex, penicillin, aspirin Past Medical History - General Information source: Patient - Social History Smoking Status: Current Every Day Smoker Chew tobacco use (# tins/day): No Frequency of alcohol use: None Drug Abuse: None Family History: Reviewed & Not Pertinent Patient has suicidal ideation: No Patient has homicidal ideation: No - Past Medical History Cardiac Medical History: Reports: Hx Hypertension Pulmonary Medical History: Reports: Hx COPD Neurological Medical History: Reports: Hx Seizures Endocrine Medical History: Reports: Hx Diabetes Mellitus Type 2 Renal/ Medical History: Denies: Hx Peritoneal Dialysis Past Surgical History: Reports: Hx Section, Hx Cholecystectomy Vertical Provider Document - CONSTITUTIONAL Agree With Documented VS: Yes Notes: GENERAL: Alert, interacts well. No acute distress. HEAD: Normocephalic, atraumatic. EYES: Pupils equal, round, and reactive to light. Extraocular movements intact. ENT: Oral mucosa moist, tongue midline. Patient only has 2 teeth that her and her entire mouth. Tooth #27 is the one that hurts. It is black in color and misshapen. Gums are minorly erythematous around the tooth. No areas of fluctuance or induration noted. No Alon's angina noted NECK: Full range of motion. Supple. Trachea midline. LUNGS: Clear to auscultation bilaterally, no wheezes, rales, or rhonchi. No respiratory distress. HEART: Regular rate and rhythm. No murmur ABDOMEN: Soft, non-tender. Non-distended. Bowel sounds present in all 4 quadrants. EXTREMITIES: Moves all 4 extremities spontaneously. No edema, normal radial and dorsalis pedis pulses bilaterally. No cyanosis. BACK: no cervical, thoracic, lumbar midline tenderness. No saddle anesthesia, normal distal neurovascular exam. NEUROLOGICAL: Alert and oriented x3. Normal speech. cranial nerves II through XII grossly intact PSYCH: Normal affect, normal mood. SKIN: Warm, dry, normal turgor. No rashes or lesions noted. - INFECTION CONTROL TRAVEL OUTSIDE OF THE [place] IN LAST 30 DAYS: No Course - Re-evaluation Re-evalutation: 03/24/18 01:24 Patient is very adamant that she needs narcotic pain medication at this time. Discussed use of antibiotics to help her pain. Discussed home use of Tylenol and Motrin. Discussed following up with [facility] to inevitably pull the tooth in question. 03/24/18 01:27 Patient is non-tachycardic, afebrile, stable for discharge. Discharge - Discharge Clinical Impression: Toothache, Dental decay Condition: Stable Disposition: HOME, SELF-CARE Instructions: [facility], Clindamycin ([facility]), Toothache ([facility]) Additional Instructions: As we discussed you have been seen and treated in the emergency department for a toothache. You should take antibiotics as prescribed. Continue to take Tylenol and Motrin at home for pain. Please return to the emergency room for any other concerning symptoms. He will be given a phone number for [facility]. Please follow-up with them for dental care. Prescriptions: Clindamycin HCl 300 mg PO TID 7 Days capsule Referrals: JERICHO SALINAS MD [Primary Care Provider] - Follow up as needed
== END 2018-03-24 01:40 | disposition home or self-care (01) ==
LOC: ER 23:56
DX: K02.9 Dental caries, unspecified (principal); F17.200 Nicotine dependence, unspecified, uncomplicated; I10 Essential (primary) hypertension; E11.9 Type 2 diabetes mellitus without complications; J44.9 Chronic obstructive pulmonary disease, unspecified; E78.00 Pure hypercholesterolemia, unspecified; Z90.49 Acquired absence of other specified parts of digestive tract; Z86.73 Personal history of transient ischemic attack (TIA), and cerebral infarction without residual deficits; Z88.0 Allergy status to penicillin; Z88.6 Allergy status to analgesic agent
CPT/HCPCS: 99282

== ENCOUNTER → 2018-04-09 | Outpatient (CLI) | payer OTHER ==
--- NOTE | 2018-04-09 11:33 | RADIOLOGY REPORT (SQ) ---
EXAM DESCRIPTION: SHOULDER LEFT 2 OR MORE VIEWS COMPLETED DATE/TIME: 04/09/2018 11:24 am REASON FOR STUDY: LEFT SHOULDER PAIN M25.512 PAIN IN LEFT SHOULDER COMPARISON: None. NUMBER OF VIEWS: Three views. TECHNIQUE: Internal rotation, external rotation, and Y view images acquired of the left shoulder. LIMITATIONS: None. FINDINGS: MINERALIZATION: Normal. BONES: No acute fracture or dislocation. No worrisome bone lesions. JOINTS: No dislocation. VISUALIZED LUNGS AND RIBS: No pneumothorax. No rib fracture. SOFT TISSUES: No radiopaque foreign body. OTHER: No other significant finding. IMPRESSION: NEGATIVE STUDY OF THE LEFT SHOULDER. NO RADIOGRAPHIC EVIDENCE OF ACUTE INJURY. TECHNICAL DOCUMENTATION: JOB ID: [id number] [email or web address]- All Rights Reserved Reading location - IP/workstation name: [email or web address]
== END ==
LOC: CCC 11:08
DX: M25.512 Pain in left shoulder (principal)

== ENCOUNTER 2018-04-18 20:33 | Emergency (ER) | payer SELFPAY ==
[2018-04-18] MEDS ORDERED: NORMAL SALINE 1000 ML 1,000 ML IV ONE ×2 (20:49→22:07)
[2018-04-18 21:23] LABS: ABSOLUTE BASOPHILS # (AUTO) 0.1 10^3/uL (0.0-0.2); ABSOLUTE EOSINOPHILS # (AUTO) 0.2 10^3/uL (0.0-0.6); ABSOLUTE LYMPHOCYTES (AUTO) 2.7 10^3/uL (0.5-4.7); ABSOLUTE MONOCYTES (AUTO) 0.5 10^3/uL (0.1-1.4); ABSOLUTE NEUT (AUTO) 7.1 10^3/uL (1.7-8.2); BASOPHILS % (AUTO) 0.9 % (0-2); HEMATOCRIT 39.3 % (36.0-47.0); HEMOGLOBIN 13.5 g/dL (12.0-15.5); LYMPHOCYTES % (AUTO) 25.8 % (13-45); MEAN CORPUSCULAR HGB CONC 34.3 g/dL (32.0-36.0); MEAN CORPUSCULAR VOLUME 82 fl (80-97); MONOCYTES % (AUTO) 4.3 % (3-13); PLATELET COUNT 208 10^3/uL (150-450); RED BLOOD COUNT 4.81 10^6/uL (3.72-5.28); RED CELL DISTRIBUTION WIDTH 14.1 % (11.5-14.0); TOTAL CELLS COUNTED % (AUTO) 100 %; WHITE BLOOD COUNT 10.5 10^3/uL (4.0-10.5)
[2018-04-18 21:36] LABS: VENOUS BLOOD BASE EXCESS 0.6 mmol/L; VENOUS BLOOD HCO3 24.3 mmol/L (20-32); VENOUS BLOOD PCO2 36.1 mmHg (35-63); VENOUS BLOOD PH 7.45 (7.30-7.42)
[2018-04-18 21:39] LABS: APPEARANCE,URINE CLEAR; BILIRUBIN,URINE NEGATIVE (NEGATIVE); COLOR,URINE STRAW; GLUCOSE, URINE >=500 mg/dL (NEGATIVE); KETONES,URINE NEGATIVE (NEGATIVE); LEUKOCYTE ESTERASE,URINE SMALL (NEGATIVE); NITRITE,URINE NEGATIVE (NEGATIVE); PROTEIN,URINE NEGATIVE (NEGATIVE); URINE SPECIFIC GRAVITY 1.022; UROBILINOGEN,URINE NEGATIVE mg/dL (<2.0)
[2018-04-18] MEDS ORDERED: ONDANSETRON HCL INJ/PF 4 MG/2 ML SDV IV ONE (22:07)
--- NOTE | 2018-04-18 22:11 | ER Document Report ---
ED Blood Sugar Problem - General Chief Complaint: High Blood Sugar Stated Complaint: BLOOD SUGAR PROBLEM Time Seen by Provider: 04/18/18 21:20 TRAVEL OUTSIDE OF THE [place] IN LAST 30 DAYS: No - HPI Notes: Patient is a 52-year-old female that presents to the emergency department for chief complaint of hyperglycemia. Patient states her blood glucose today has been significantly elevated. She states the highest at home was 471. She takes Humalog 7 units 4 times daily and Lantus 38 units at night. She states the Lantus is new from 1 month ago and she is still titrating that up 2 units each night as long as she is still hyperglycemic in the morning. She states her A1c is 11 and she is working on getting her diabetes more under control. She reports today she started to feel ill with nausea and one episode of vomiting. She reports feeling lightheaded and dizzy. She denies any chest pain, palpitations, dyspnea, fevers and abdominal pain. Past Medical History: Diabetes, stroke, seizure Past Surgical History: x8, cholecystectomy Social History: Daily tobacco. Denies drugs and alcohol Family History: Reviewed and noncontributory for presenting illness Allergies: Reviewed, see documented allergy list. REVIEW OF SYSTEMS: CONSTITUTIONAL : No fever No chills No diaphoresis No recent illness EENT: No vision changes No congestion No sore throat CARDIOVASCULAR: No chest pain No palpitations RESPIRATORY: No shortness of breath No cough No difficulty breathing GASTROINTESTINAL: No abdominal pain nausea vomiting No diarrhea GENITOURINARY: No dysuria No hematuria No difficulty urinating MUSCULOSKELETAL: No back pain No leg pain No arm pain SKIN: No rashes No lesions LYMPHATIC: No swollen, enlarged glands. NEUROLOGICAL: lightheadedness No headache No weakness No paresthesias PSYCHIATRIC: No anxiety No depression PHYSICAL EXAMINATION: Vital signs reviewed, nursing noted reviewed. GENERAL: ill-appearing, obese, mildly diaphoretic HEAD: Atraumatic, normocephalic. EYES: Eyes appear normal, extraocular movements intact, sclera anicteric, conjunctiva are normal. ENT: nares patent, oropharynx clear without exudates. Dry mucous membranes. NECK: Normal range of motion, supple without lymphadenopathy LUNGS: Breath sounds clear to auscultation bilaterally and equal. No wheezes rales or rhonchi. HEART: Tachycardic rate and regular rhythm without murmurs ABDOMEN: Soft, nontender, normoactive bowel sounds. No rebound, guarding, or rigidity. No masses appreciated. EXTREMITIES: Nontender, good range of motion, no pitting or edema. NEUROLOGICAL: No focal neurological deficits. Moves all extremities spont aneously Motor and sensory grossly intact on exam. PSYCH: Normal mood, normal affect. SKIN: Warm, Dry, normal turgor, no rashes or lesions noted on exposed skin - Related Data Allergies/Adverse Reactions: aspirin Allergy (Unknown, Verified 04/18/18 21:37) cephalexin [From Keflex] Allergy (Unknown, Verified 04/18/18 21:37) Penicillins Adverse Reaction (Verified 04/18/18 21:37) Past Medical History - Social History Smoking Status: Current Every Day Smoker Chew tobacco use (# tins/day): No Frequency of alcohol use: None Drug Abuse: None Family History: Reviewed & Not Pertinent Patient has suicidal ideation: No Patient has homicidal ideation: No - Past Medical History Cardiac Medical History: Reports: Hx Hypertension Pulmonary Medical History: Reports: Hx COPD Neurological Medical History: Reports: Hx Seizures Endocrine Medical History: Reports: Hx Diabetes Mellitus Type 2 Renal/ Medical History: Denies: Hx Peritoneal Dialysis Past Surgical History: Reports: Hx Section, Hx Cholecystectomy Physical Exam - Vital signs Vitals: Temp Pulse Resp BP Pulse Ox 98.4 F 103 H 24 H 135/83 H 96 04/18/18 20:38 04/18/18 20:38 04/18/18 20:38 04/18/18 20:38 04/18/18 20:38 Course - Re-evaluation Re-evalutation: 04/18/18 22:10 Vitals reviewed. Nursing notes reviewed. Patient appears significantly dehydrated. She has very dry mucous membranes and is tachycardic. Her blood pressure is stable. Patient was given IV fluids and Zofran for symptomatic management. 04/18/18 22:54 Patient reevaluated and has improvement of her symptoms. She states her nausea has resolved. She is no longer diaphoretic. Her mucous membranes are becoming more moist. Patient is on her second liter of fluids currently. Her blood glucose is 409. She is not in DKA. She has no electrolyte derangements. Patient was given 10 units subcu insulin for her hyperglycemia. She is still hemodynamically stable. UA suggest urinary tract infection which likely is the cause of patient's elevated glucose. She will be started on Macrobid for her UTI. She is not septic. Laboratory 04/18/18 04/18/18 04/18/18 21:07 21:07 21:07 WBC 10.5 RBC 4.81 Hgb 13.5 Hct 39.3 MCV 82 MCH 28.0 MCHC 34.3 RDW 14.1 H Plt Count 208 Seg Neutrophils % 67.0 Lymphocytes % 25.8 Monocytes % 4.3 Eosinophils % 2.0 Basophils % 0.9 Absolute Neutrophils 7.1 Absolute Lymphocytes 2.7 Absolute Monocytes 0.5 Absolute Eosinophils 0.2 Absolute Basophils 0.1 VBG pH 7.45 H VBG pCO2 36.1 VBG HCO3 24.3 VBG Base Excess 0.6 Sodium Cancelled Potassium Cancelled Chloride Cancelled Carbon Dioxide Cancelled Anion Gap Cancelled BUN Cancelled Creatinine Cancelled Est GFR ( Amer) Cancelled Est GFR (Non-Af Amer) Cancelled Glucose Cancelled Calcium Cancelled Total Bilirubin Cancelled Direct Bilirubin Cancelled Neonat Total Bilirubin Cancelled Neonat Direct Bilirubin Cancelled Neonat Indirect Bili Cancelled AST Cancelled ALT Cancelled Alkaline Phosphatase Cancelled Total Protein Cancelled Albumin Cancelled Urine Color Urine Appearance Urine pH Ur Specific [place] Urine Protein Urine Glucose (UA) Urine Ketones Urine Blood Urine Nitrite Urine Bilirubin Urine Urobilinogen Ur Leukocyte Esterase Urine WBC (Auto) Urine RBC (Auto) Urine Bacteria (Auto) Squamous Epi Cells Auto Urine Ascorbic Acid 04/18/18 04/18/18 21:12 21:53 WBC RBC Hgb Hct MCV MCH MCHC RDW Plt Count Seg Neutrophils % Lymphocytes % Monocytes % Eosinophils % Basophils % Absolute Neutrophils Absolute Lymphocytes Absolute Monocytes Absolute Eosinophils Absolute Basophils VBG pH VBG pCO2 VBG HCO3 VBG Base Excess Sodium 136.4 L Potassium 3.6 Chloride 105 Carbon Dioxide 24 Anion Gap 7 BUN 13 Creatinine 0.60 Est GFR ( Amer) > 60 Est GFR (Non-Af Amer) > 60 Glucose 409 H* Calcium 8.7 Total Bilirubin 0.3 Direct Bilirubin 0.2 Neonat Total Bilirubin Not Reportable Neonat Direct Bilirubin Not Reportable Neonat Indirect Bili Not Reportable AST 17 ALT 28 Alkaline Phosphatase 134 H Total Protein 6.1 L Albumin 3.7 Urine Color STRAW Urine Appearance CLEAR Urine pH 5.0 Ur Specific [place] 1.022 Urine Protein NEGATIVE Urine Glucose (UA) >=500 H Urine Ketones NEGATIVE Urine Blood NEGATIVE Urine Nitrite NEGATIVE Urine Bilirubin NEGATIVE Urine Urobilinogen NEGATIVE Ur Leukocyte Esterase SMALL H Urine WBC (Auto) 28 Urine RBC (Auto) 1 Urine Bacteria (Auto) TRACE Squamous Epi Cells Auto 1 Urine Ascorbic Acid NEGATIVE 04/18/18 23:37 04/18/18 23:45 Patient reevaluated and is feeling much better still. Her blood glucose is 392. She was instructed to go home and take her home Lantus as already prescribed. She will return for any new or worsening symptoms. She is stable at discharge. - Vital Signs Vital signs: Temp Pulse Resp BP Pulse Ox 98.4 F 103 H 21 H 140/69 H 94 04/18/18 20:38 04/18/18 20:38 04/18/18 21:34 04/18/18 21:34 04/18/18 21:34 - Laboratory Result Diagrams: 04/18/18 21:07 04/18/18 21:53 Laboratory results interpreted by me: 04/18/18 04/18/18 04/18/18 21:07 21:07 21:12 RDW 14.1 H VBG pH 7.45 H Sodium Glucose Alkaline Phosphatase Total Protein Urine Glucose (UA) >=500 H Ur Leukocyte Esterase SMALL H 04/18/18 21:53 RDW VBG pH Sodium 136.4 L Glucose 409 H* Alkaline Phosphatase 134 H Total Protein 6.1 L Urine Glucose (UA) Ur Leukocyte Esterase - EKG Interpretation by Me Additional EKG results interpreted by me: 04/18/18 23:16 Interpreted by myself [id number]: Sinus tachycardia, rate 100, normal axis, no ectopy no STEMI Discharge - Discharge Clinical Impression: Hyperglycemia due to type 2 diabetes mellitus Qualifiers: Diabetes mellitus fci insulin use: with ammonia distiller use Qualified Code(s): E11.65 - Type 2 diabetes mellitus with hyperglycemia; Z79.4 - detention (current) use of insulin UTI (urinary tract infection) Qualifiers: Urinary tract infection type: site unspecified Hematuria presence: without hematuria Qualified Code(s): N39.0 - Urinary tract infection, site not specified Condition: Stable Disposition: HOME, SELF-CARE Instructions: Hyperglycemia ([facility]), Urinary Tract Infection ([facility]) Additional Instructions: Please return to the emergency department if you have any worsening, or concern of your symptoms. Please return to the emergency department if you develop chest pain, difficulty breathing, severe abdominal pain, or ongoing vomiting. Please follow-up with your primary care physician in 2-3 days and any other recommended physicians. If prescribed, take all medications as directed. If you have any questions or concerns do not hesitate to return the emergency department for evaluation. Increase oral hydration by drinking at least 8, 8 ounce glasses of water a day Continue your home insulin regimen as previously prescribed Prescriptions: Nitrofurantoin Macrocrystal [Macrodantin] 100 mg PO BID #10 capsule Referrals: CARLOS A BENTLEY MD [Primary Care Provider] - Follow up in 3-5 days
[2018-04-18 22:27] LABS: ALANINE AMINOTRANSFERASE 28 U/L (9-52); ALBUMIN 3.7 g/dL (3.5-5.0); ALKALINE PHOSPHATASE 134 U/L (38-126); ANION GAP 7 (5-19); ASPARTATE AMINO TRANSFERASE 17 U/L (14-36); BILIRUBIN,DIRECT 0.2 mg/dL (0.0-0.4); BILIRUBIN,TOTAL 0.3 mg/dL (0.2-1.3); BLOOD UREA NITROGEN 13 mg/dL (7-20); CALCIUM 8.7 mg/dL (8.4-10.2); CARBON DIOXIDE 24 mmol/L (22-30); CHLORIDE 105 mmol/L (98-107); POTASSIUM 3.6 mmol/L (3.6-5.0); SODIUM 136.4 mmol/L (137-145); TOTAL PROTEIN 6.1 g/dL (6.3-8.2)
[2018-04-18 22:37] LABS: GLUCOSE 409 mg/dL (75-110)
[2018-04-18] MEDS ORDERED: INSULIN REG, HUMAN 100 UNIT/ML 3 ML VIAL (PYX) SUBCUT ONE (22:52)
[2018-04-18] MEDS ORDERED: NITROFURANTOIN MONOHYD/M-CRYST 100 MG CAPSULE PO ONE (23:36)
--- NOTE | 2018-04-18 23:42 | RADIOLOGY REPORT (SQ) ---
EXAM DESCRIPTION: XR CHEST 1 VIEW COMPLETED DATE/TME: 04/18/2018 21:22 CLINICAL HISTORY: 52 years, Female, shortness of breath COMPARISON: None. NUMBER OF VIEWS: 1 TECHNIQUE: Portable chest LIMITATIONS: None. FINDINGS: Heart size is normal. Lungs are clear. No pneumothorax IMPRESSION: Negative chest copyright 2010 [employer] All Rights Reserved
[2018-04-18 23:46] VITALS: BP 108/53
--- NOTE | 2018-04-19 06:28 | EKG REPORT ---
SEVERITY:- ABNORMAL ECG - SINUS TACHYCARDIA CONSIDER OLD ANTERIOR UT, CLINICAL CORRELATION NEEDED ABNRM R PROG, CONSIDER ASMI OR LEAD PLACEMENT : Confirmed by: Armen Iverson MD 19-Apr-2018 06:27:31
== END 2018-04-19 00:15 | disposition home or self-care (01) ==
LOC: ER 20:33
DX: E11.65 Type 2 diabetes mellitus with hyperglycemia (principal); Z79.4 Long term (current) use of insulin; N39.0 Urinary tract infection, site not specified; R11.2 Nausea with vomiting, unspecified; R42 Dizziness and giddiness; R00.0 Tachycardia, unspecified; F17.200 Nicotine dependence, unspecified, uncomplicated; I10 Essential (primary) hypertension; J44.9 Chronic obstructive pulmonary disease, unspecified; Z88.6 Allergy status to analgesic agent; Z88.1 Allergy status to other antibiotic agents
CPT/HCPCS: 93005; 99285; 36415; 87086; 82962; 85025; 87088; 80053; 81001; 82803; 71045; 93010; J1815; J2405; J7030; J8499; 87186

== ENCOUNTER 2018-05-02 17:43 | Emergency (ER) | payer SELFPAY ==
[2018-05-02 17:52] VITALS: BP 133/76
--- NOTE | 2018-05-02 18:13 | ER Document Report ---
ED Medical Screen (RME) - General Chief Complaint: Pain Stated Complaint: SHOULDER PAIN Time Seen by Provider: 05/02/18 18:07 Primary Care Provider: CARLOS A BENTLEY MD [Primary Care Provider] - Follow up as needed Notes: 52-year-old female patient complaining of left shoulder pain which is been going on for over a month but states it is acutely worse today. She also is complaining of left ankle foot pain that started later today when she went to stand up and it gave way on her. She had an x-ray of the left shoulder earlier this month through [facility] and it was unremarkable. I have greeted and performed a rapid initial assessment of this patient. A comprehensive ED assessment and evaluation of the patient, analysis of test results and completion of the medical decision making process will be conducted by additional ED providers. TRAVEL OUTSIDE OF THE [place] IN LAST 30 DAYS: No - Related Data Allergies/Adverse Reactions: aspirin Allergy (Unknown, Verified 04/18/18 21:37) cephalexin [From Keflex] Allergy (Unknown, Verified 04/18/18 21:37) Penicillins Adverse Reaction (Verified 04/18/18 21:37) Past Medical History - Social History Chew tobacco use (# tins/day): No Frequency of alcohol use: None Drug Abuse: None - Past Medical History Cardiac Medical History: Reports: Hx Hypertension Pulmonary Medical History: Reports: Hx COPD Neurological Medical History: Reports: Hx Seizures Endocrine Medical History: Reports: Hx Diabetes Mellitus Type 2 Renal/ Medical History: Denies: Hx Peritoneal Dialysis Past Surgical History: Reports: Hx Section, Hx Cholecystectomy Physical Exam - Vital signs Vitals: Temp Pulse Resp BP Pulse Ox 98.3 F 90 20 133/76 H 96 05/02/18 17:50 05/02/18 17:50 05/02/18 17:50 05/02/18 17:50 05/02/18 17:50 Course - Vital Signs Vital signs: Temp Pulse Resp BP Pulse Ox 98.3 F 90 20 133/76 H 96 05/02/18 17:50 05/02/18 17:50 05/02/18 17:50 05/02/18 17:50 05/02/18 17:50 Doctor's Discharge - Discharge Referrals: CARLOS A BENTLEY MD [Primary Care Provider] - Follow up as needed
[2018-05-02 18:37] LABS: ABSOLUTE BASOPHILS # (AUTO) 0.1 10^3/uL (0.0-0.2); ABSOLUTE EOSINOPHILS # (AUTO) 0.2 10^3/uL (0.0-0.6); ABSOLUTE LYMPHOCYTES (AUTO) 2.8 10^3/uL (0.5-4.7); ABSOLUTE MONOCYTES (AUTO) 0.4 10^3/uL (0.1-1.4); ABSOLUTE NEUT (AUTO) 5.7 10^3/uL (1.7-8.2); BASOPHILS % (AUTO) 1.2 % (0-2); EOSINOPHILS % (AUTO) 2.6 % (0-6); HEMATOCRIT 40.8 % (36.0-47.0); LYMPHOCYTES % (AUTO) 30.7 % (13-45); MEAN CORPUSCULAR HGB CONC 34.5 g/dL (32.0-36.0); MEAN CORPUSCULAR VOLUME 81 fl (80-97); MONOCYTES % (AUTO) 3.8 % (3-13); PLATELET COUNT 198 10^3/uL (150-450); RED BLOOD COUNT 5.01 10^6/uL (3.72-5.28); RED CELL DISTRIBUTION WIDTH 14.5 % (11.5-14.0); SEGMENTED NEUTROPHILS % (AUTO) 61.7 % (42-78); TOTAL CELLS COUNTED % (AUTO) 100 %; WHITE BLOOD COUNT 9.3 10^3/uL (4.0-10.5)
[2018-05-02 18:54] LABS: ALANINE AMINOTRANSFERASE 21 U/L (9-52); ALBUMIN 4.5 g/dL (3.5-5.0); ALKALINE PHOSPHATASE 131 U/L (38-126); ANION GAP 11 (5-19); ASPARTATE AMINO TRANSFERASE 17 U/L (14-36); BILIRUBIN,DIRECT 0.2 mg/dL (0.0-0.4); BILIRUBIN,TOTAL 0.5 mg/dL (0.2-1.3); BLOOD UREA NITROGEN 14 mg/dL (7-20); CALCIUM 9.8 mg/dL (8.4-10.2); CARBON DIOXIDE 25 mmol/L (22-30); CHLORIDE 102 mmol/L (98-107); GLUCOSE 318 mg/dL (75-110); POTASSIUM 3.9 mmol/L (3.6-5.0); SODIUM 137.7 mmol/L (137-145); TOTAL PROTEIN 7.1 g/dL (6.3-8.2); URIC ACID 4.7 mg/dL (2.5-7.5)
--- NOTE | 2018-05-02 20:14 | ER Document Report ---
Doctor's Note Notes: I did not evaluate this patient. Prior to my ability to evaluate this patient she left the emergency department without informing anyone. She had had an evaluation through triage including labs and a brief exam. I was unable to evaluate this patient appropriate.
== END 2018-05-02 19:20 | disposition left against medical advice (07) ==
LOC: ER 17:43
DX: Z53.21 Procedure and treatment not carried out due to patient leaving prior to being seen by health care provider (principal); M25.512 Pain in left shoulder; M25.572 Pain in left ankle and joints of left foot; M79.672 Pain in left foot; I10 Essential (primary) hypertension; J44.9 Chronic obstructive pulmonary disease, unspecified; E11.9 Type 2 diabetes mellitus without complications
CPT/HCPCS: 36415; 80053; 83036; 84550; 85025; 99281

== ENCOUNTER 2018-05-03 01:04 | Emergency (ER) | payer SELFPAY ==
[2018-05-03] MEDS ORDERED: HYDROMORPHONE HCL INJ/PF 2 MG/ML AMPULE IV ONE (02:06)
--- NOTE | 2018-05-03 02:40 | RADIOLOGY REPORT (SQ) ---
EXAM DESCRIPTION: XR ankle 2 VIEWS COMPLETED DATE/TME: 05/03/2018 02:06 CLINICAL HISTORY: 52 years, Female, pain COMPARISON: None. NUMBER OF VIEWS: 3 TECHNIQUE: 3 view left ankle LIMITATIONS: None. FINDINGS: Negative for fracture or dislocation. Ankle mortise is intact. Tiny calcaneal spurs. Soft tissues are unremarkable IMPRESSION: Tiny calcaneal spurs. Remainder unremarkable copyright 2010 [employer]- All Rights Reserved
--- NOTE | 2018-05-03 02:45 | ER Document Report ---
ED General - General Chief Complaint: Foot Pain Stated Complaint: FOOT PAIN Time Seen by Provider: 05/03/18 01:59 Primary Care Provider: NIKOLAS ROSAS MD [Primary Care Provider] - Follow up as needed Notes: Patient is a 52-year-old female with history of diabetes who presents with left ankle pain and swelling. She says the pain is been there for several days but became much worse today. She came earlier and was seen in triage and had blood work obtained. Patient then left and was never seen on treating physician. Blood work from earlier does not show any concerning abnormalities except for high blood sugar. Patient says when she got home she took her insulin. She said her ankle continue to hurt to the point where it hurts too much to bear weight and therefore she came to the ER. She says she has some pain that radiates a little bit up into her leg from the ankle. She is only had swelling in the ankle itself. No redness. It has been says that earlier the ankle is very swollen but he placed ice bag on it and this helped significantly. She has no history of gout. No other complaints at this time. No history of diabetic neuropathy. TRAVEL OUTSIDE OF THE [place] IN LAST 30 DAYS: No - Related Data Allergies/Adverse Reactions: aspirin Allergy (Unknown, Verified 04/18/18 21:37) cephalexin [From Keflex] Allergy (Unknown, Verified 04/18/18 21:37) Penicillins Adverse Reaction (Verified 04/18/18 21:37) Past Medical History - Social History Smoking Status: Unknown if Ever Smoked Frequency of alcohol use: None Drug Abuse: None Family History: Reviewed & Not Pertinent - Past Medical History Cardiac Medical History: Reports: Hx Hypertension Pulmonary Medical History: Reports: Hx COPD Neurological Medical History: Reports: Hx Seizures Endocrine Medical History: Reports: Hx Diabetes Mellitus Type 2 Renal/ Medical History: Denies: Hx Peritoneal Dialysis Past Surgical History: Reports: Hx Section, Hx Cholecystectomy Review of Systems - Review of Systems Notes: My Normal Review Basic REVIEW OF SYSTEMS: CONSTITUTIONAL : Denies fever, chills, or sweats. Denies recent illness. RESPIRATORY: Denies cough, cold, or chest congestion. Denies shortness of breath, difficulty breathing, or wheezing. GASTROINTESTINAL: Denies abdominal pain. Denies nausea, vomiting, or diarrhea. MUSCULOSKELETAL: Left ankle pain SKIN: Denies rash or skin lesions. NEUROLOGICAL: Denies sensory or motor loss. ALL OTHER SYSTEMS REVIEWED AND NEGATIVE. Physical Exam - Vital signs Vitals: Temp Pulse Resp BP Pulse Ox 98.4 F 108 H 18 137/90 H 99 05/03/18 01:10 05/03/18 01:10 05/03/18 01:10 05/03/18 01:10 05/03/18 01:10 - Notes Notes: General Appearance: Well nourished, alert, cooperative, no acute distress, moderate obvious discomfort. Vitals: reviewed, See vital signs table. Extremities: strength 5/5 in all extremities, good pulses in all extremities, some swelling to the left ankle. Remainder of leg is not swollen. Calf is nontender. No tenderness to palpation behind the knee. The only tenderness she has palpation is of the ankle and with range of motion of the of the ankle. Good capillary refill in the left foot. Good dorsalis pedis and posterior tibial pulses. Good distal sensation. Skin: warm, dry, appropriate color, no rash Neuro: speech clear, oriented x 3, normal affect, responds appropriately to questions. Course - Re-evaluation Re-evalutation: 05/03/18 03:25 She has had improved relief after the pain medicine. I did obtain x-ray of the ankle and is negative. The first patient could think of a specific traumatic situation however now speak with the he says that she had a seizure 3 days ago and after that she has been having pain. He suspects that when she went down she probably rolled her left ankle. This would make sense being that she has significant swelling of her ankle at home but this improved after the applied a cold pack and then put her ankle and elevation. X-ray does not show evidence of fracture. Gout is a possibility however I think gout is less likely being that the ankle is not warm or hot. I do not suspect infection as there is no redness or increased warmth. I do not suspect DVT as patient does not have pain going into the calf or posterior leg and the swelling is localized to her ankle itself. This time will discharge home with some pain medicine as well as crutches and a splint. I informed her that if she still having significant pain by middle of the week that she can follow-up with orthopedics for reevaluation. I encouraged her return to ER if she has increasing pain, any redness or warmth to the ankle, any pain or swelling in the posterior aspect of the leg, or if she has any further concerns. Dictation of this chart was performed using voice recognition software; therefore, there may be some unintended grammatical errors. - Vital Signs Vital signs: Temp Pulse Resp BP Pulse Ox 98.4 F 108 H 18 137/90 H 99 05/03/18 01:10 05/03/18 01:10 05/03/18 01:10 05/03/18 01:10 05/03/18 01:10 Discharge - Discharge Clinical Impression: Ankle pain, left Qualifiers: Chronicity: acute Qualified Code(s): M25.572 - Pain in left ankle and joints of left foot Condition: Good Disposition: HOME, SELF-CARE Additional Instructions: I suspect that you most likely have an ankle sprain based on the swelling and the recent history of falling during a seizure. I do not see evidence of infection as your ankle is not red or warm. Gout is possible however with gout we usually have more warmth to palpation of the ankle which you do not have. Currently you do not have a lot of pain to your calf or into the posterior aspect of your leg and therefore blood clot in your leg is unlikely. Please do not bear weight on your ankle for a few days. We will give you crutches. We will give you an ankle splint. I want you to follow-up with orthopedic doctor on Thursday if you are still having any pain or difficulty bearing weight on your ankle. Please return to ER immediately if you have pain and swelling going into your leg as opposed to being in your ankle, if you have worsening pain, redness or warmth to the ankle, or fevers. I have prescribed you a medication called [place] .Please be aware that [place] does have Tylenol (acetaminophen) in it. Please make sure you do not take more than 4000 mg of acetaminophen a day. Do not drive or care for children after you have taken this medication they will make you sleepy and sometimes impair judgment. Prescriptions: Hydrocodone/Acetaminophen [[place] 5-325 mg Tablet] 1 tab PO Q4 PRN #8 tablet PRN Reason: For Breakthrough Pain Indomethacin [Indocin 25 Mg Capsule] 25 mg PO Q8 #12 capsule Forms: Return to Work Referrals: LUIS HARRISON MD [ACTIVE STAFF] - 05/05/18
[2018-05-03] MEDS ORDERED: HYDROCODONE/ACETAMINOPHEN 5-325 MG (6 TAB/ER DISP) PO PRN (03:23)
--- NOTE | 2018-05-03 03:47 | RADIOLOGY REPORT (SQ) ---
EXAM DESCRIPTION: XR ANKLE 3 OR MORE VIEWS COMPLETED DATE/TME: 05/03/2018 02:06 CLINICAL HISTORY: 52 years, Female, pain COMPARISON: None. NUMBER OF VIEWS: 3 TECHNIQUE: 3 view left ankle LIMITATIONS: None. FINDINGS: Negative for acute fracture or dislocation. Ankle mortise is intact. Soft tissues are unremarkable IMPRESSION: Negative exam copyright 2010 [employer]- All Rights Reserved
[2018-05-03 04:12] VITALS: BP 132/70
== END 2018-05-03 04:19 | disposition home or self-care (01) ==
LOC: ER 01:04
DX: M25.572 Pain in left ankle and joints of left foot (principal); M25.472 Effusion, left ankle; E11.9 Type 2 diabetes mellitus without complications; Z79.4 Long term (current) use of insulin; I10 Essential (primary) hypertension; J44.9 Chronic obstructive pulmonary disease, unspecified; Z88.6 Allergy status to analgesic agent; Z88.1 Allergy status to other antibiotic agents
CPT/HCPCS: 99283; 96374; 73610; 73590; L1902; J1170

== ENCOUNTER 2018-06-01 17:16 | Emergency (ER) | payer SELFPAY ==
[2018-06-01 17:35] VITALS: BP 126/72
--- NOTE | 2018-06-01 18:18 | ER Document Report ---
ED Medical Screen (RME) - General Chief Complaint: Chest Pain Stated Complaint: CHEST PAIN Time Seen by Provider: 06/01/18 18:17 Primary Care Provider: NIKOLAS ROSAS MD [Primary Care Provider] - Follow up as needed Notes: 52 years old female with a history of coronary artery disease diabetes chronic low back pain presents today with an episode of chest pain prior to arrival. Which was completely relieved by sublingual nitroglycerin. Denies any other associated symptoms. She also complained of lower back pain radiating to the right leg. TRAVEL OUTSIDE OF THE [place] IN LAST 30 DAYS: No - Related Data Allergies/Adverse Reactions: aspirin Allergy (Unknown, Verified 06/01/18 18:00) cephalexin [From Keflex] Allergy (Unknown, Verified 06/01/18 18:00) Penicillins Adverse Reaction (Verified 06/01/18 18:00) Past Medical History - Past Medical History Cardiac Medical History: Reports: Hx Hypertension Pulmonary Medical History: Reports: Hx COPD Neurological Medical History: Reports: Hx Seizures Endocrine Medical History: Reports: Hx Diabetes Mellitus Type 2 Renal/ Medical History: Denies: Hx Peritoneal Dialysis Past Surgical History: Reports: Hx Section, Hx Cholecystectomy Physical Exam - Vital signs Vitals: Temp Pulse Resp BP Pulse Ox 98.6 F 99 16 126/72 H 95 06/01/18 17:34 06/01/18 17:34 06/01/18 17:34 06/01/18 17:34 06/01/18 17:34 Course - Vital Signs Vital signs: Temp Pulse Resp BP Pulse Ox 98.6 F 99 16 126/72 H 95 06/01/18 17:34 06/01/18 17:34 06/01/18 17:34 06/01/18 17:34 06/01/18 17:34 Doctor's Discharge - Discharge Referrals: NIKOLAS ROSAS MD [Primary Care Provider] - Follow up as needed
--- NOTE | 2018-06-01 18:48 | ER Document Report ---
ED Cardiac - General Chief Complaint: Chest Pain Stated Complaint: CHEST PAIN Time Seen by Provider: 06/01/18 18:47 Primary Care Provider: NIKOLAS ROSAS MD [Primary Care Provider] - Follow up as needed TRAVEL OUTSIDE OF THE [place] IN LAST 30 DAYS: No - Related Data Allergies/Adverse Reactions: aspirin Allergy (Unknown, Verified 06/01/18 18:00) cephalexin [From Keflex] Allergy (Unknown, Verified 06/01/18 18:00) Penicillins Adverse Reaction (Verified 06/01/18 18:00) Past Medical History - Social History Smoking Status: Current Every Day Smoker Chew tobacco use (# tins/day): No Frequency of alcohol use: None Drug Abuse: None Family History: Reviewed & Not Pertinent Patient has suicidal ideation: No Patient has homicidal ideation: No - Past Medical History Cardiac Medical History: Reports: Hx Congestive Heart Failure, Hx Hypertension Pulmonary Medical History: Reports: Hx COPD Neurological Medical History: Reports: Hx Seizures Endocrine Medical History: Reports: Hx Diabetes Mellitus Type 2 Renal/ Medical History: Denies: Hx Peritoneal Dialysis Psychiatric Medical History: Reports: Hx Depression - anxiety Past Surgical History: Reports: Hx Section, Hx Cholecystectomy Physical Exam - Vital signs Vitals: Temp Pulse Resp BP Pulse Ox 98.6 F 99 16 126/72 H 95 06/01/18 17:34 06/01/18 17:34 06/01/18 17:34 06/01/18 17:34 06/01/18 17:34 Course - Vital Signs Vital signs: Temp Pulse Resp BP Pulse Ox 98.6 F 99 16 126/72 H 95 06/01/18 17:34 06/01/18 17:34 06/01/18 17:34 06/01/18 17:34 06/01/18 17:34 Discharge - Discharge Referrals: NIKOLAS ROSAS MD [Primary Care Provider] - Follow up as needed
--- NOTE | 2018-06-02 10:09 | EKG REPORT ---
SEVERITY:- BORDERLINE ECG - SINUS RHYTHM BORDERLINE PROLONGED QT INTERVAL : Confirmed by: Francis Brand 02-Jun-2018 10:08:47
== END 2018-06-01 18:53 | disposition left against medical advice (07) ==
LOC: ER 17:16
DX: R07.9 Chest pain, unspecified (principal); I10 Essential (primary) hypertension; J44.9 Chronic obstructive pulmonary disease, unspecified; E11.9 Type 2 diabetes mellitus without complications; Z88.6 Allergy status to analgesic agent; Z88.0 Allergy status to penicillin; Z90.49 Acquired absence of other specified parts of digestive tract
CPT/HCPCS: 36415; 93005; 93010; 99281

== ENCOUNTER 2018-06-12 22:02 | Emergency (ER) | payer SELFPAY ==
[2018-06-12 22:46] LABS: ABSOLUTE EOSINOPHILS # (AUTO) 0.3 10^3/uL (0.0-0.6); ABSOLUTE LYMPHOCYTES (AUTO) 2.1 10^3/uL (0.5-4.7); ABSOLUTE MONOCYTES (AUTO) 0.5 10^3/uL (0.1-1.4); ABSOLUTE NEUT (AUTO) 6.2 10^3/uL (1.7-8.2); BASOPHILS % (AUTO) 0.5 % (0-2); EOSINOPHILS % (AUTO) 2.9 % (0-6); HEMATOCRIT 37.7 % (36.0-47.0); HEMOGLOBIN 12.9 g/dL (12.0-15.5); LYMPHOCYTES % (AUTO) 23.1 % (13-45); MEAN CORPUSCULAR HGB CONC 34.3 g/dL (32.0-36.0); MEAN CORPUSCULAR VOLUME 82 fl (80-97); MONOCYTES % (AUTO) 5.2 % (3-13); PLATELET COUNT 202 10^3/uL (150-450); RED BLOOD COUNT 4.61 10^6/uL (3.72-5.28); RED CELL DISTRIBUTION WIDTH 14.5 % (11.5-14.0); SEGMENTED NEUTROPHILS % (AUTO) 68.3 % (42-78); TOTAL CELLS COUNTED % (AUTO) 100 %
[2018-06-12 22:59] LABS: ANION GAP 9 (5-19); BLOOD UREA NITROGEN 12 mg/dL (7-20); CALCIUM 9.1 mg/dL (8.4-10.2); CARBON DIOXIDE 26 mmol/L (22-30); CHLORIDE 101 mmol/L (98-107); GLUCOSE 270 mg/dL (75-110); POTASSIUM 3.5 mmol/L (3.6-5.0)
[2018-06-12] MEDS ORDERED: BENZONATATE 100 MG CAPSULE PO ONE (23:54)
[2018-06-12] MEDS ORDERED: LIDOCAINE 2% INJ-PF (20 MG/ML) 10 ML AMPUL NEB ONE (23:54)
[2018-06-12] MEDS ORDERED: DEXAMETHASONE 4 MG TABLET PO ONE (23:54)
[2018-06-12] MEDS ORDERED: ALBUTEROL SULFATE HFA (90 MCG/PUFF) 200 PUFF/8.5 GM MDI IH ONE (23:54)
[2018-06-12] MEDS ORDERED: KETOROLAC TROMETHAMINE 60 MG/2 ML SDV IM ONE (23:54)
[2018-06-12] MEDS ORDERED: LIDOCAINE 1% INJ (10 MG/ML) 10 ML MDV ONE (23:59)
[2018-06-13 00:03] LABS: APPEARANCE,URINE SLIGHTLY-CLOUDY; BILIRUBIN,URINE NEGATIVE (NEGATIVE); COLOR,URINE YELLOW; GLUCOSE, URINE >=500 mg/dL (NEGATIVE); KETONES,URINE NEGATIVE (NEGATIVE); LEUKOCYTE ESTERASE,URINE MODERATE (NEGATIVE); NITRITE,URINE POSITIVE (NEGATIVE); PROTEIN,URINE NEGATIVE (NEGATIVE); URINE SPECIFIC GRAVITY 1.013; UROBILINOGEN,URINE NEGATIVE mg/dL (<2.0)
[2018-06-13] MEDS ORDERED: NITROFURANTOIN MONOHYD/M-CRYST 100 MG CAPSULE PO ONE (00:05)
--- NOTE | 2018-06-13 00:10 | ER Document Report ---
ED General - General Chief Complaint: Dizziness Stated Complaint: COUGH,CHEST WALL PAIN,NAUSEA/DIZZINESS Time Seen by Provider: 06/12/18 22:19 Primary Care Provider: NIKOLAS ROSAS MD [Primary Care Provider] - Follow up tomorrow Notes: Patient is a 52-year-old female with a past medical history of COPD, current everyday smoker, presents complaining of multiple symptoms. Her primary complaint is of persistent cough, with associated lightheadedness particularly when she has a vigorous spell of coughing that has been ongoing for the past 3-4 days. Patient describes symptoms as being gradual in onset and constant since that time. Nothing seems improve or worsen her cough. Lightheadedness mostly located to when she is having spells of coughing. Has not seen her primary care doctor regarding today's concerns. Denies overt shortness of breath. Describes diffuse musculoskeletal pain particularly in the back with coughing. She also notes that she has had dysuria. Not certain whether or not she has had fever. TRAVEL OUTSIDE OF THE [place] IN LAST 30 DAYS: No - Related Data Allergies/Adverse Reactions: aspirin Allergy (Unknown, Verified 06/01/18 18:00) cephalexin [From Keflex] Allergy (Unknown, Verified 06/01/18 18:00) Penicillins Adverse Reaction (Verified 06/01/18 18:00) Past Medical History - General Information source: Patient - Social History Smoking Status: Current Every Day Smoker Chew tobacco use (# tins/day): No Frequency of alcohol use: None Drug Abuse: None Lives with: Spouse/Significant other Family History: Reviewed & Not Pertinent Patient has suicidal ideation: No Patient has homicidal ideation: No - Past Medical History Cardiac Medical History: Reports: Hx Congestive Heart Failure, Hx Hypertension Pulmonary Medical History: Reports: Hx COPD Neurological Medical History: Reports: Hx Seizures Endocrine Medical History: Reports: Hx Diabetes Mellitus Type 2 Renal/ Medical History: Denies: Hx Peritoneal Dialysis Psychiatric Medical History: Reports: Hx Depression - anxiety Past Surgical History: Reports: Hx Section, Hx Cholecystectomy Review of Systems - Review of Systems Notes: Constitutional: Negative for fever. HENT: Negative for sore throat. Eyes: Negative for visual changes. Cardiovascular: Negative for chest pain. Respiratory: Positive for persistent cough Gastrointestinal: Negative for abdominal pain, vomiting or diarrhea. Genitourinary: Positive for dysuria. Musculoskeletal: Positive for chest wall and low back pain with coughing Skin: Negative for rash. Neurological: Negative for headaches, weakness or numbness. 10 point ROS negative except as marked above and in HPI. Physical Exam - Vital signs Vitals: Temp Resp BP Pulse Ox 97.6 F 22 H 131/110 H 95 06/12/18 22:17 06/12/18 22:17 06/12/18 22:17 06/12/18 22:17 Interpretation: Normal Notes: PHYSICAL EXAMINATION: GENERAL: Well-appearing, well-nourished and in no acute distress. HEAD: Atraumatic, normocephalic. EYES: Pupils equal round and reactive to light, extraocular movements intact, sclera anicteric, conjunctiva are normal. ENT: nares patent, oropharynx clear without exudates. Mildly dry mucous membranes. NECK: Normal range of motion, supple without lymphadenopathy LUNGS: Breath sounds clear to auscultation bilaterally and equal. Faint expiratory wheezing HEART: Regular rate and rhythm without murmurs ABDOMEN: Soft, nontender, normoactive bowel sounds. No guarding, no rebound. No masses appreciated. EXTREMITIES: Normal range of motion, no pitting or edema. No cyanosis. NEUROLOGICAL: No focal neurological deficits. Moves all extremities spontaneously and on command. PSYCH: Moderately anxious SKIN: Warm, Dry, normal turgor, no rashes or lesions noted. Course - Re-evaluation Re-evalutation: 06/13/18 00:06 Patient presents with a clinical history and exam most consistent with an acute viral bronchitis. Patient is overall well in appearance without tachypnea, hypoxemia, tachycardia, or difficulty with ambulation. Breath sounds are clear bilaterally. No fever. Patient does have additional signs of upper respiratory infection including nasal congestion, sore throat, and sinus pressure. Labs overall unremarkable with the exception of findings consistent with a cystitis and patient does complain of some lower abdominal discomfort as well as dysuria. Culture has been sent and she will be started on nitrofurantoin. Chest x-ray without evidence of an acute pneumonia. Will treat with bronchodilators, single dose of dexamethasone, and Tessalon Perles. At this time will discharge with return precautions and follow-up recommendations. Verbal discharge instructions given a the bedside and opportunity for questions given. Medication warnings reviewed. Patient is in agreement with this plan and has verbalized understanding of return precautions and the need for primary care follow-up in the next 24-72 hours. - Vital Signs Vital signs: Temp Pulse Resp BP Pulse Ox 98.3 F 17 127/62 H 93 06/13/18 01:02 06/13/18 01:02 06/13/18 01:02 06/13/18 01:02 - Laboratory Result Diagrams: 06/12/18 22:35 06/12/18 22:35 Laboratory results interpreted by me: 06/12/18 06/12/18 06/12/18 22:35 22:35 23:20 RDW 14.5 H Sodium 136.0 L Potassium 3.5 L Glucose 270 H Urine Glucose (UA) >=500 H Urine Nitrite POSITIVE H Ur Leukocyte Esterase MODERATE H - Diagnostic Test Radiology reviewed: Image reviewed, Reports reviewed Radiology results interpreted by me: 06/13/18 00:08 Chest x-ray: No acute infiltrate or pneumothorax Discharge - Discharge Clinical Impression: Bronchitis, Nausea, Cystitis COPD (chronic obstructive pulmonary disease) Qualifiers: COPD type: unspecified COPD Qualified Code(s): J44.9 - Chronic obstructive pulmonary disease, unspecified Condition: Good Disposition: HOME, SELF-CARE Additional Instructions: You were seen for symptoms most consistent with bronchitis in association with underlying COPD. This can take up to 12 weeks to fully resolve. This is generally due to a viral infection. Please follow-up with your primary doctor in the next 2-3 days. Return if you develop worsening cough, vomiting, fever >100.4, pass out, begin coughing blood, or have any other symptoms that are concerning to you. Please use the medications prescribed today as directed. You have been sent home with cough medications called Amanda Loco, an inhaler, and have been given a dose of long-acting steroid here in the emergency department. Your urine shows findings consistent with a urinary tract infection. Please take all the antibiotics as directed even if your symptoms have improved. Return to emergency room if you develop fever >101F, persistent vomiting, become lethargic, have severe pain in your sides, or any other symptoms that are concerning to you. Please follow-up with your primary care physician within the next 24-48 hours. Prescriptions: Benzonatate [Tessalon Perles 100 mg Capsule] 100 mg PO Q8HP PRN #40 capsule PRN Reason: Nitrofurantoin/Nitrofuran Mac [Macrobid 100 mg Capsule] 1 tab PO BID #20 capsule Referrals: NIKOLAS ROSAS MD [Primary Care Provider] - Follow up tomorrow
--- NOTE | 2018-06-13 00:49 | RADIOLOGY REPORT (SQ) ---
EXAM DESCRIPTION: XR CHEST 1 VIEW COMPLETED DATE/TME: 06/12/2018 23:53 CLINICAL HISTORY: 52 years, Female, cough COMPARISON: 04/18/2018 chest NUMBER OF VIEWS: 1 TECHNIQUE: Portable chest LIMITATIONS: None. FINDINGS: Heart size is normal. Lungs are clear. No pneumothorax IMPRESSION: Negative chest copyright 2010 [employer]- All Rights Reserved
[2018-06-13 01:36] VITALS: BP 127/62
--- NOTE | 2018-06-13 12:28 | EKG REPORT ---
SEVERITY:- NORMAL ECG - SINUS RHYTHM : Confirmed by: Christine Connolly MD 13-Jun-2018 12:28:33
== END 2018-06-13 01:36 | disposition home or self-care (01) ==
LOC: ER 22:02
DX: J40 Bronchitis, not specified as acute or chronic (principal); J44.9 Chronic obstructive pulmonary disease, unspecified; N30.90 Cystitis, unspecified without hematuria; R05 Cough; R42 Dizziness and giddiness; R07.89 Other chest pain; M54.5 Low back pain; R09.81 Nasal congestion; J02.9 Acute pharyngitis, unspecified; I10 Essential (primary) hypertension; E11.9 Type 2 diabetes mellitus without complications; F17.200 Nicotine dependence, unspecified, uncomplicated; Z88.6 Allergy status to analgesic agent; Z88.1 Allergy status to other antibiotic agents
CPT/HCPCS: 93005; 99284; 96372; 36415; 87086; 85025; 87088; 80048; 81001; 84484; 87186; 71045; 93010; J1885; J3490; J8499

== ENCOUNTER 2018-07-25 22:46 | Emergency (ER) | payer MEDICAID ==
[2018-07-25] MEDS ORDERED: NORMAL SALINE 1000 ML 1,000 ML IV ONE (23:03)
[2018-07-25 23:22] LABS: ABSOLUTE BASOPHILS # (AUTO) 0.1 10^3/uL (0.0-0.2); ABSOLUTE EOSINOPHILS # (AUTO) 0.1 10^3/uL (0.0-0.6); ABSOLUTE LYMPHOCYTES (AUTO) 2.4 10^3/uL (0.5-4.7); ABSOLUTE MONOCYTES (AUTO) 0.5 10^3/uL (0.1-1.4); ABSOLUTE NEUT (AUTO) 6.2 10^3/uL (1.7-8.2); BASOPHILS % (AUTO) 0.8 % (0-2); EOSINOPHILS % (AUTO) 1.4 % (0-6); HEMATOCRIT 38.7 % (36.0-47.0); HEMOGLOBIN 13.3 g/dL (12.0-15.5); LYMPHOCYTES % (AUTO) 26.1 % (13-45); MEAN CORPUSCULAR HEMOGLOBIN 28.7 pg (27.0-33.4); MEAN CORPUSCULAR HGB CONC 34.5 g/dL (32.0-36.0); MEAN CORPUSCULAR VOLUME 83 fl (80-97); MONOCYTES % (AUTO) 5.6 % (3-13); PLATELET COUNT 198 10^3/uL (150-450); RED BLOOD COUNT 4.65 10^6/uL (3.72-5.28); RED CELL DISTRIBUTION WIDTH 14.3 % (11.5-14.0); SEGMENTED NEUTROPHILS % (AUTO) 66.1 % (42-78); TOTAL CELLS COUNTED % (AUTO) 100 %; WHITE BLOOD COUNT 9.3 10^3/uL (4.0-10.5)
[2018-07-25 23:31] LABS: INTERNATIONAL RATION (INR) 0.92; PROTHROMBIN TIME 12.9 SEC (11.4-15.4)
[2018-07-25] MEDS ORDERED: ONDANSETRON HCL INJ/PF 4 MG/2 ML SDV IV ONE (23:31)
[2018-07-25 23:43] LABS: ALANINE AMINOTRANSFERASE 30 U/L (9-52); ALBUMIN 4.1 g/dL (3.5-5.0); ALKALINE PHOSPHATASE 127 U/L (38-126); ANION GAP 12 (5-19); ASPARTATE AMINO TRANSFERASE 20 U/L (14-36); BILIRUBIN,DIRECT 0.3 mg/dL (0.0-0.4); BILIRUBIN,TOTAL 0.4 mg/dL (0.2-1.3); BLOOD UREA NITROGEN 15 mg/dL (7-20); CALCIUM 9.6 mg/dL (8.4-10.2); CARBON DIOXIDE 24 mmol/L (22-30); CHLORIDE 99 mmol/L (98-107); CREATINE KINASE 131 U/L (30-135); SODIUM 135.3 mmol/L (137-145); TOTAL PROTEIN 6.8 g/dL (6.3-8.2)
[2018-07-25 23:44] LABS: POTASSIUM 3.6 mmol/L (3.6-5.0)
[2018-07-25 23:44] LABS: APPEARANCE,URINE CLEAR; BILIRUBIN,URINE NEGATIVE (NEGATIVE); COLOR,URINE COLORLESS; GLUCOSE, URINE >=500 mg/dL (NEGATIVE); KETONES,URINE NEGATIVE (NEGATIVE); LEUKOCYTE ESTERASE,URINE SMALL (NEGATIVE); NITRITE,URINE NEGATIVE (NEGATIVE); PROTEIN,URINE NEGATIVE (NEGATIVE); UROBILINOGEN,URINE NEGATIVE mg/dL (<2.0)
[2018-07-25 23:52] LABS: GLUCOSE 404 mg/dL (75-110)
[2018-07-26 00:03] LABS: CREATINE KINASE MB 0.94 ng/mL (<4.55); TROPONIN I < 0.012 ng/mL
[2018-07-26] MEDS ORDERED: INSULIN REG, HUMAN 100 UNIT/ML 3 ML VIAL (PYX) SUBCUT ONE (00:24)
[2018-07-26] MEDS ORDERED: NORMAL SALINE 1000 ML 1,000 ML IV ONE (00:24)
[2018-07-26] MEDS ORDERED: SULFAMETHOXAZOLE/TRIMETHOPRIM 800-160 MG TABLET PO ONE (00:25)
[2018-07-26 00:42] LABS: VENOUS BLOOD BASE EXCESS -0.5 mmol/L; VENOUS BLOOD HCO3 24.2 mmol/L (20-32); VENOUS BLOOD PCO2 39.8 mmHg (35-63); VENOUS BLOOD PH 7.4 (7.30-7.42)
[2018-07-26] MEDS ORDERED: MORPHINE SULFATE 10 MG/ML INJ IV ONE (01:04)
--- NOTE | 2018-07-26 02:15 | RADIOLOGY REPORT (SQ) ---
EXAM DESCRIPTION: CT ABDOMEN PELVIS WITH IV CONTRAST COMPLETED DATE/TME: 07/25/2018 23:03 CLINICAL HISTORY: 53 years, Female, nausea, pain, distention COMPARISON: None. TECHNIQUE: 430 Images stored on PACS. All CT scanners at this facility use dose modulation, iterative reconstruction, and/or weight based dosing when appropriate to reduce radiation dose to as low as reasonably achievable (ALARA). [facility]: Dose Right [facility]: CareDose [facility]: Dose Right [facility]: Teradose 4D [facility]: [employer] LIMITATIONS: None. FINDINGS: Limited evaluation of the lung bases is unremarkable. Osseous structures are grossly intact. Fatty infiltrative change to the liver. Status post cholecystectomy. The spleen, adrenal glands, pancreas, left kidney are unremarkable. Atrophic appearance to the right kidney. Exophytic simple right renal cyst. No evidence for bowel obstruction. No free air or free fluid. The appendix is not visualized. Correlate with surgical history. No pericecal inflammation. IMPRESSION: Atrophic appearance to the right kidney. Fatty infiltrative change to the liver. TECHNICAL DOCUMENTATION: Quality ID # [id number]: Final reports with documentation of one or more dose reduction techniques (e.g., Automated exposure control, adjustment of the mA and/or kV according to patient size, use of iterative reconstruction technique) copyright 2010 [employer]- All Rights Reserved
--- NOTE | 2018-07-26 04:22 | ER Document Report ---
Entered by ALLISON TAM SCRIBE 07/25/18 [id number] Acting as scribe for:JORGE ALBERTO VALERIO DO ED Syncope and Near Syncope - General Stated Complaint: UNRESPONSIVE Primary Care Provider: JAY BENSON MD [Primary Care Provider] - Follow up as needed Mode of Arrival: Wheelchair Information source: Patient, Relative Cannot obtain history due to: Altered mental status Notes: 53-year-old female patient presents to the emergency department today with a syncopal episode that occurred when walking through the front door of the emergency department. reports that the patient was coming to the emergency department due to elevated blood glucose levels at home with associated abdominal distention. states that the patient's blood sugars were in the lower 400s at home despite taking her normal 10 units of fast acting and 60 units of long acting insulin. states when they were walking through the entrance, the patient "closed her eyes and fell into my arms". states he was able to lie the patient down gently so he is not concerned about any injuries from this syncopal event. reports that earlier today the patient complained that her abdomen was "hard" and she felt like when she was eating, the food would "only get down so far and then she vomited it back up". also mentions that the patient stated that she had "knots" on both sides of her upper abdomen. Patient had a normal bowel movement today. Patient reports she only vomited once when trying to eat, but she has had continued nausea. Patient denies any diarrhea. reports that the patient was diagnosed with uterine and colon cancer in 2010 and has never had treatment because she "got scared". The patient has been seen here several times in the past and this was never mentioned according to records. The patient has also never had any abdominal CT scans here so this is unable to be confirmed. TRAVEL OUTSIDE OF THE [place] IN LAST 30 DAYS: No - Related Data Allergies/Adverse Reactions: aspirin Allergy (Unknown, Verified 06/01/18 18:00) cephalexin [From Keflex] Allergy (Unknown, Verified 06/01/18 18:00) Penicillins Adverse Reaction (Verified 06/01/18 18:00) Past Medical History - General Information source: Patient - Social History Smoking Status: Current Every Day Smoker Cigarette use (# per day): Yes Drug Abuse: None Lives with: Spouse/Significant other Family History: Reviewed & Not Pertinent - Past Medical History Cardiac Medical History: Reports: Hx Congestive Heart Failure, Hx Hypertension Pulmonary Medical History: Reports: Hx COPD Neurological Medical History: Reports: Hx Seizures Endocrine Medical History: Reports: Hx Diabetes Mellitus Type 2 Malignancy Medical History: Reports: Other - reports untreated Uterine and Colon cancer dx in 2010? Psychiatric Medical History: Reports: Hx Depression - anxiety Past Surgical History: Reports: Hx Section, Hx Cholecystectomy Review of Systems - Review of Systems -: Yes ROS unobtainable due to patient's medical condition - initially minimally responsive, ROS given by at bedside Constitutional: See HPI, Other - Elevated BGL EENT: No symptoms reported Cardiovascular: See HPI, Syncope Respiratory: No symptoms reported Gastrointestinal: See HPI, Abdomen distended, Abdominal pain, Nausea. denies: Diarrhea, Vomiting Genitourinary: No symptoms reported Female Genitourinary: No symptoms reported Musculoskeletal: No symptoms reported Skin: No symptoms reported Hematologic/Lymphatic: No symptoms reported Neurological/Psychological: No symptoms reported -: Yes All other systems reviewed and negative Physical Exam - Vital signs Vitals: Temp 98.6 F 07/25/18 22:47 - Notes Notes: PHYSICAL EXAM GENERAL: Minimally responsive on arrival. Within less than 3 minutes of arrival, the patient is able to begin answering questions. Patient was asked to squeeze her left hand and she did not move her hand. Approximately 30 seconds later the patient electively raised her left hand to scratch her face. Within approximately 10 minutes of arrival the patient was able to cooperate with all testing and regained normal speech. Obese. HEAD: Normocephalic, atraumatic. EYES: Pupils equal, round, and reactive to light. Extraocular movements intact. ENT: Oral mucosa moist, tongue midline. NECK: Full range of motion. Supple. Trachea midline. LUNGS: Clear to auscultation bilaterally, no wheezes, rales, or rhonchi. No respiratory distress. HEART: Regular rate and rhythm. No murmurs, gallops, or rubs. ABDOMEN: Mild diffuse abdominal tenderness with palpation. Moderate distension. Bowel sounds present in all 4 quadrants. No guarding, rigidity, or rebound. Dull to percussion EXTREMITIES: See general exam. Moves all four extremities spontaneously. NEUROLOGICAL: Babinski reflex intact bilaterally. No focal neurological deficits. See general exam. PSYCH: Normal affect, normal mood. SKIN: Warm, dry, normal turgor. Exophytic growth to the left side of the nose. Course - Re-evaluation Re-evalutation: 07/26/18 02:39 CBC unremarkable, coags normal, serum P shows elevated glucose at 404, pseudohyponatremia with a sodium 135.3, alkaline phosphatase mildly elevated 127 otherwise unremarkable, troponin initially negative at 0.012, coags normal, urinalysis shows small blood and small leukocyte esterase, 1+ bacteria and 12 WBCs, no squamous epithelial cells. This is been sent for culture. CT scan of the abdomen pelvis was ordered as she was having abdominal pain and did have a syncopal episode, it shows atrophic appearance to the right kidney and fatty infiltrative change to the liver but no evidence of infection or obstruction despite having oral contrast. There is no evidence of any metastatic cancer related to the cancer history of the patient relates as having been untreated for the past 8 years. I do not know exactly what caused the patient's syncopal episode, she has completely normalized now, months of weakness lasted for only a few minutes and she did not have any focal deficits when she woke up as within 30 seconds of not moving her left hand she was fully moving it and scratching her face. I doubt T IA or stroke at this point. Repeat troponin has been ordered. Patient has been given fluids and insulin. 07/26/18 03:56 Repeat troponin is also negative. Lipase is normal. No acute intra-abdominal process was been found, EKG is nonischemic, patient has remained in normal sinus rhythm on the monitor. No indication for admission at this time. I am uncertain why the patient had a syncopal event, suspect abdominal pain is coming up from a viral process. Encourage patient to eat gently for the next several days, take the Zofran as directed and use Imodium if she develops diarrhea. Return to the emergency department for worsening pain, persistent vomiting, fevers or any new or concerning symptoms. - Vital Signs Vital signs: Temp Pulse Resp BP Pulse Ox 98.6 F 17 129/71 H 98 07/25/18 22:47 07/26/18 01:01 07/26/18 01:01 07/26/18 01:01 - Laboratory Result Diagrams: 07/25/18 23:10 07/25/18 23:10 Laboratory results interpreted by me: 07/25/18 07/25/18 07/25/18 23:10 23:10 23:21 RDW 14.3 H Sodium 135.3 L Glucose 404 H* Alkaline Phosphatase 127 H Urine Glucose (UA) >=500 H Urine Blood SMALL H Ur Leukocyte Esterase SMALL H - EKG Interpretation by Me Additional EKG results interpreted by me: 07/26/18 03:57 EKG shows sinus rhythm rate of 87, normal axis, QT corrected borderline prolonged at 491, NM interval normal, no ST segment elevations or depressions, no T wave inversions although there is nonspecific flattening in aVL per my interpretation. Discharge - Discharge Clinical Impression: Upper abdominal pain Type 2 diabetes mellitus with hyperglycemia Qualifiers: Diabetes mellitus keno terminal operator insulin use: with keno terminal operator use Qualified Code(s): E11.65 - Type 2 diabetes mellitus with hyperglycemia; Z79.4 - roasterman (current) use of insulin Syncope Qualifiers: Syncope type: unspecified Qualified Code(s): R55 - Syncope and collapse Condition: Stable Disposition: HOME, SELF-CARE Additional Instructions: Today we did not find any signs of severe infection in your abdomen requiring surgery or antibiotics. I also did not find a specific explanation for why your stomach hurts. Please see gentle meals such as broth-based soups, bananas, rice, applesauce and toast. Please avoid greasy and fatty foods. Please drink plenty of fluids and monitor your blood sugar closely. I have prescribed Zofran that you may use 1 tablet every 4 hours as needed for nausea. If you develop diarrhea you should use Imodium as directed [id number] after the first 24 hours. If you develop fevers, worsening abdominal pain, blood in your stools or in your vomit or any new or concerning symptoms please return to the emergency department. Prescriptions: Ondansetron [Zofran Odt 4 mg Tablet] 1 - 2 tab PO Q4H PRN #15 tab.rapdis PRN Reason: For Nausea/Vomiting Referrals: JAY BENSON MD [Primary Care Provider] - Follow up as needed I personally performed the services described in the documentation, reviewed and edited the documentation which was dictated to the scribe in my presence, and it accurately records my words and actions.
[2018-07-26 04:32] VITALS: BP 126/76
--- NOTE | 2018-07-26 07:18 | EKG REPORT ---
SEVERITY:- BORDERLINE ECG - SINUS RHYTHM BORDERLINE PROLONGED QT INTERVAL : Confirmed by: Armen Iverson MD 26-Jul-2018 07:17:33
== END 2018-07-26 04:22 | disposition home or self-care (01) ==
LOC: ER 22:46
DX: R10.10 Upper abdominal pain, unspecified (principal); R55 Syncope and collapse; E11.65 Type 2 diabetes mellitus with hyperglycemia; Z79.4 Long term (current) use of insulin; F17.210 Nicotine dependence, cigarettes, uncomplicated; I50.9 Heart failure, unspecified; I11.0 Hypertensive heart disease with heart failure; J44.9 Chronic obstructive pulmonary disease, unspecified; Z90.49 Acquired absence of other specified parts of digestive tract; Z88.6 Allergy status to analgesic agent; Z88.0 Allergy status to penicillin; Z88.3 Allergy status to other anti-infective agents
CPT/HCPCS: 93005; 99284; 96361; 96374; 96375; 36415; 87086; 82553; 82962; 82550; 83690; 85025; 85610; 85730; 87088; 80053; 81001; 84484; 87186; 82803; 74177; 93010; J2270; J1815; J2405; J3490; J7030 ×2

== ENCOUNTER → 2018-07-27 | Outpatient (CLI) | payer MEDICAID ==
--- NOTE | 2018-07-27 13:45 | WOMENS IMAGING REPORT ---
EXAM DESCRIPTION: 3D SCREENING MAMMO BILAT COMPLETED DATE/TIME: 07/27/2018 12:09 pm REASON FOR STUDY: Z12.31; ENCOUNTER FOR SCREENING MAMMOGRAM FOR MALIGNANT NEOPLASM OF BREAST Z12.31 ENCNTR SCREEN MAMMOGRAM FOR MALIGNANT NEOPLASM OF ELISSA COMPARISON: None. TECHNIQUE: Standard craniocaudal and mediolateral oblique views of each breast recorded using digita l acquisition and breast tomosynthesis. LIMITATIONS: None. FINDINGS: No masses, calcifications or architectural distortion. No areas of suspicion. Read with the assistance of CAD. .[facility] - R2 Cenova Version 1.3 .[facility] Imaging - R2 Cenova Version 2.1 .[facility] Imaging - R2 Cenova Version 2.4 .[facility] [place] - R2 Cenova Version 2.4 .[facility] - R2 Rim Buster Version 9.2 IMPRESSION: NORMAL MAMMOGRAM. BIRADS 1. BREAST DENSITY: b. There are scattered areas of fibroglandular density. BIRAD: 1 NEGATIVE RECOMMENDATION: ROUTINE SCREENING COMMENT: The patient has been notified of the results by letter per MQSA requirements. Additional no tification policies are in place for contacting patient with suspicious or incomplete findings. Quality ID #225: The [employer] recommends an annual screening mammogram for women aged 40 years or over. This facility utilizes a reminder system to ensure that all patients receive reminder letters, and/or direct phone calls for appointments. This includes reminders for routine scr eening mammograms, diagnostic mammograms, or other Breast Imaging Interventions when appropriate. Th is patient will be placed in the appropriate reminder system. The [employer] (ACR) has developed recommendations for screening MRI of the breast s in certain patient populations, to be used in conjunction with mammography. Breast MRI surveillanc e may be appropriate for women with more than 20% lifetime risk of developing breast cancer as deter mined by genetic testing, significant family history of the disease, or history of mantle radiation f or Hodgkins Disease. ACR Practice Guidelines 2008. DBT Technology DBT is a type of tomographic mammography. With conventional mammography, overlapping breast tissue ma y make lesions difficult to detect, even with good compression. DBT uses an x-ray tube that rotates a round the breast, taking images at different angles. These images are then combined to create thin sl ices of the breast that the radiologist can view as a 3D reconstruction. The at[employer]ars unit can perform full-field digital mammograms (2D imaging); or DBT (3D imaging); or both, in a combination mode that quickly performs both the mammogram and the tomosynthesis scan while the breast is still compressed. PQRS 6045F: Fluoroscopic imaging is not utilized for breast tomosynthesis. TECHNICAL DOCUMENTATION: FINDING NUMBER: (1) ASSESSMENT: (1) JOB ID: [id number] [employer]- All Rights Reserved Reading location - IP/workstation name: [email or web address]
== END ==
LOC: WI 11:47
PROVIDERS: ATTEND Internal Medicine
DX: Z12.31 Encounter for screening mammogram for malignant neoplasm of breast (principal)
CPT/HCPCS: 77063; 77067

== ENCOUNTER 2018-09-23 22:00 | Emergency (ER) | payer MEDICAID ==
[2018-09-23 22:21] VITALS: BP 117/66
[2018-09-23] MEDS ORDERED: METOCLOPRAMIDE HCL INJ/PF 10 MG/2 ML SDV IV ONE (22:31)
[2018-09-23] MEDS ORDERED: MORPHINE SULFATE 10 MG/ML INJ IV ONE (22:31)
[2018-09-23] MEDS ORDERED: NORMAL SALINE 1000 ML 1,000 ML IV ONE (22:31)
--- NOTE | 2018-09-23 22:33 | ER Document Report ---
ED Medical Screen (RME) - General Chief Complaint: Abdominal Pain Stated Complaint: ABDOMINAL PAIN Time Seen by Provider: 09/23/18 22:30 Primary Care Provider: JAY BENSON MD [Primary Care Provider] - Follow up as needed Notes: 53-year-old female with numerous medical comorbidities on multiple prescription medications. Coming in today with low abdominal pain started this morning with nausea vomiting and is gotten worse during the day. I have treated and performed a rapid initial assessment of this patient. A comprehensive ED assessment and evaluation of the patient, analysis of test results and completion of medical decision making process will be conducted by additional ED providers. PHYSICAL EXAMINATION: GENERAL: Patient is disheveled, uncomfortable, nontoxic LUNGS: Clear to auscultation HEART: Regular rate and rhythm without murmurs, rubs, gallops. ABDOMEN: Tender across the lower abdomen. No guarding or rebound Extremities: No cyanosis, clubbing, or edema b/l. NEUROLOGICAL: Normal speech, normal gait. PSYCH: Normal mood, normal affect. TRAVEL OUTSIDE OF THE [place] IN LAST 30 DAYS: No - Related Data Allergies/Adverse Reactions: aspirin Allergy (Unknown, Verified 06/01/18 18:00) cephalexin [From Keflex] Allergy (Unknown, Verified 06/01/18 18:00) Penicillins Adverse Reaction (Verified 06/01/18 18:00) Past Medical History - Past Medical History Cardiac Medical History: Reports: Hx Congestive Heart Failure, Hx Hypertension Pulmonary Medical History: Reports: Hx COPD Neurological Medical History: Reports: Hx Seizures Endocrine Medical History: Reports: Hx Diabetes Mellitus Type 2 Renal/ Medical History: Denies: Hx Peritoneal Dialysis Psychiatric Medical History: Reports: Hx Depression - anxiety Past Surgical History: Reports: Hx Section, Hx Cholecystectomy Physical Exam - Vital signs Vitals: Temp Pulse Resp BP Pulse Ox 98.3 F 77 16 117/66 95 09/23/18 22:18 09/23/18 22:18 09/23/18 22:18 09/23/18 22:18 09/23/18 22:18 Course - Vital Signs Vital signs: Temp Pulse Resp BP Pulse Ox 98.3 F 77 16 117/66 95 09/23/18 22:18 09/23/18 22:18 09/23/18 22:18 09/23/18 22:18 09/23/18 22:18 Doctor's Discharge - Discharge Referrals: JAY BENSON MD [Primary Care Provider] - Follow up as needed
== END 2018-09-24 02:54 | disposition left against medical advice (07) ==
LOC: ER 22:00
DX: R10.30 Lower abdominal pain, unspecified (principal); R11.2 Nausea with vomiting, unspecified; I10 Essential (primary) hypertension; E11.9 Type 2 diabetes mellitus without complications; J44.9 Chronic obstructive pulmonary disease, unspecified; Z90.49 Acquired absence of other specified parts of digestive tract; Z88.1 Allergy status to other antibiotic agents; Z88.8 Allergy status to other drugs, medicaments and biological substances; Z53.20 Procedure and treatment not carried out because of patient's decision for unspecified reasons
CPT/HCPCS: 99281; J2765; J2270

== ENCOUNTER 2018-11-14 01:47 | Emergency (ER) | payer MEDICAID ==
--- NOTE | 2018-11-14 02:24 | RADIOLOGY REPORT (SQ) ---
EXAM DESCRIPTION: CT HEAD WITHOUT IV CONTRAST COMPLETED DATE/TME: 11/14/2018 00:00 CLINICAL HISTORY: 53 years, Female, stroke alert COMPARISON: 02/11/2018 CT TECHNIQUE: 186 Images stored on PACS. All CT scanners at this facility use dose modulation, iterative reconstruction, and/or weight based dosing when appropriate to reduce radiation dose to as low as reasonably achievable (ALARA). [facility]: Dose Right [facility]: CareDose [facility]: Dose Right [facility]: Teradose 4D [facility]: Smart Technologies LIMITATIONS: None. FINDINGS: The globes are intact. Polyp of the right maxillary sinus. Opacification of the right mastoid air cells. Similar findings were present previously. No displaced or depressed skull fracture. No intra or extra-axial hemorrhage. CT is limited for evaluation of acute infarct. No CT evidence for large or territorial acute infarct. No mass. No midline shift IMPRESSION: No acute intracranial abnormality. Opacification of the right mastoid air cells, as before TECHNICAL DOCUMENTATION: Quality ID # [id number]: Final reports with documentation of one or more dose reduction techniques (e.g., Automated exposure control, adjustment of the mA and/or kV according to patient size, use of iterative reconstruction technique) copyright 2010 [employer]- All Rights Reserved
[2018-11-14] MEDS ORDERED: HALOPERIDOL LACTATE INJ 5 MG/1 ML VIAL IV ONE (02:28)
--- NOTE | 2018-11-14 02:32 | RADIOLOGY REPORT (SQ) ---
EXAM DESCRIPTION: XR CHEST 1 VIEW COMPLETED DATE/TME: 11/14/2018 00:00 CLINICAL HISTORY: 53 years, Female, stroke alert COMPARISON: 10/21/2018 chest NUMBER OF VIEWS: 1 TECHNIQUE: Portable chest LIMITATIONS: None. FINDINGS: Heart size is normal. Chronic interstitial change bilaterally. Osteopenia. No pneumothorax IMPRESSION: No acute cardiopulmonary process copyright 2010 [employer]- All Rights Reserved
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
[2018-11-14 02:58] LABS: APPEARANCE,URINE SLIGHTLY-CLOUDY; BILIRUBIN,URINE NEGATIVE (NEGATIVE); COLOR,URINE YELLOW; GLUCOSE, URINE >=500 mg/dL (NEGATIVE); KETONES,URINE NEGATIVE (NEGATIVE); LEUKOCYTE ESTERASE,URINE MODERATE (NEGATIVE); NITRITE,URINE NEGATIVE (NEGATIVE); PROTEIN,URINE 30 mg/dL (NEGATIVE); URINE SPECIFIC GRAVITY 1.016; UROBILINOGEN,URINE NEGATIVE mg/dL (<2.0)
[2018-11-14 03:09] LABS: ALBUMIN 4.1 g/dL (3.5-5.0); ALKALINE PHOSPHATASE 124 U/L (38-126); ANION GAP 10 (5-19); ASPARTATE AMINO TRANSFERASE 43 U/L (14-36); BILIRUBIN,DIRECT 0.5 mg/dL (0.0-0.4); BILIRUBIN,TOTAL 0.6 mg/dL (0.2-1.3); BLOOD UREA NITROGEN 13 mg/dL (7-20); CALCIUM 8.8 mg/dL (8.4-10.2); CARBON DIOXIDE 24 mmol/L (22-30); CHLORIDE 100 mmol/L (98-107); GLUCOSE 350 mg/dL (75-110); TOTAL PROTEIN 7.3 g/dL (6.3-8.2)
[2018-11-14 03:19] LABS: ALCOHOL < 10 mg/dL (NONE DETECTED)
[2018-11-14 03:21] LABS: URINE AMPHETAMINES SCREEN NEGATIVE; URINE BARBITURATES SCREEN NEGATIVE; URINE BENZODIAZEPINES SCREEN NEGATIVE; URINE COCAINE SCREEN NEGATIVE; URINE MARIJUANA (THC) SCREEN NEGATIVE; URINE METHADONE SCREEN NEGATIVE; URINE PHENCYCLIDINE SCREEN NEGATIVE
[2018-11-14] MEDS ORDERED: INSULIN LISPRO 100 UNIT/ML 3 ML VIAL SUBCUT ONE (03:30)
[2018-11-14 04:09] LABS: ABSOLUTE EOSINOPHILS # (AUTO) 0.2 10^3/uL (0.0-0.6); ABSOLUTE LYMPHOCYTES (AUTO) 1.9 10^3/uL (0.5-4.7); ABSOLUTE MONOCYTES (AUTO) 0.5 10^3/uL (0.1-1.4); ABSOLUTE NEUT (AUTO) 7.2 10^3/uL (1.7-8.2); BASOPHILS % (AUTO) 0.4 % (0-2); EOSINOPHILS % (AUTO) 1.9 % (0-6); HEMATOCRIT 37.1 % (36.0-47.0); HEMOGLOBIN 12.6 g/dL (12.0-15.5); LYMPHOCYTES % (AUTO) 19.3 % (13-45); MEAN CORPUSCULAR HEMOGLOBIN 27.6 pg (27.0-33.4); MEAN CORPUSCULAR HGB CONC 33.9 g/dL (32.0-36.0); MEAN CORPUSCULAR VOLUME 81 fl (80-97); MONOCYTES % (AUTO) 5.1 % (3-13); PLATELET COUNT 178 10^3/uL (150-450); RED BLOOD COUNT 4.57 10^6/uL (3.72-5.28); RED CELL DISTRIBUTION WIDTH 14.3 % (11.5-14.0); SEGMENTED NEUTROPHILS % (AUTO) 73.3 % (42-78); TOTAL CELLS COUNTED % (AUTO) 100 %; WHITE BLOOD COUNT 9.8 10^3/uL (4.0-10.5)
[2018-11-14 04:44] VITALS: BP 135/83
--- NOTE | 2018-11-14 09:15 | EKG REPORT ---
SEVERITY:- BORDERLINE ECG - SINUS TACHYCARDIA BORDERLINE PROLONGED QT INTERVAL : Confirmed by: Armen Iverson MD 14-Nov-2018 09:15:27
== END 2018-11-14 04:45 | disposition home or self-care (01) ==
LOC: ER 01:47
DX: F41.9 Anxiety disorder, unspecified (principal); N30.00 Acute cystitis without hematuria; E11.65 Type 2 diabetes mellitus with hyperglycemia; J44.9 Chronic obstructive pulmonary disease, unspecified; I69.354 Hemiplegia and hemiparesis following cerebral infarction affecting left non-dominant side; I10 Essential (primary) hypertension; F17.200 Nicotine dependence, unspecified, uncomplicated; R56.9 Unspecified convulsions; Z79.899 Other long term (current) drug therapy; Z62.820 Parent-biological child conflict
CPT/HCPCS: 93005; 99285; 51701; 96374; 36415; 80307 ×2; 85025; 80053; 81001; 80164; 71045; 70450; 93010; J1630; J1815

== ENCOUNTER 2018-11-25 13:27 | Inpatient (IN) | payer MEDICAID ==
[2018-11-25] MEDS: CLINDAMYCIN 600 MG/D5W RTU 600 MG/50 ML RTUPB IV SCH ×2 (16:05→22:21)
[2018-11-25] MEDS ORDERED: GLUCAGON,HUMAN RECOMB 1 MG INJ SUBCUT PRN (16:28)
[2018-11-25] MEDS ORDERED: DEXTROSE 40% GEL 15 GM TUBE PO PRN ×2 (16:28)
[2018-11-25] MEDS ORDERED: DEXTROSE 50%-WATER 25 GM/50 ML DISP.SYRIN IV PRN ×2 (16:28)
--- NOTE | 2018-11-25 16:47 | PDOC CONSULTATION ---
Consultation Consult Date: 11/25/18 Provider Consulted: BRANDYN PANIAGUA History of Present Illness Admission Date/PCP: 11/25/18 13:27 JAY BENSON MD History of Present Illness: TIFFANY HUTCHINSON is a 53 year old female with hx of type 1 diabetes, strike 1 year ago, CT a camacho uears ago, HTN, COPD, currently smiker admitted for bilateral groin pain w/ drainage due to acute on chronic groin hydroadenitis. Past Medical History Cardiac Medical History: Reports: Congestive Heart Failure, Hypertension Pulmonary Medical History: Reports: Chronic Obstructive Pulmonary Disease (COPD) Neurological Medical History: Reports: Seizures Endocrine Medical History: Reports: Diabetes Mellitus Type 2 Psychiatric Medical History: Reports: Depression - anxiety Past Surgical History Past Surgical History: Reports: Section, Cholecystectomy Social History Smoking Status: Current Every Day Smoker Drugs: None Family History Family History: Reviewed & Not Pertinent Parental Family History Reviewed: No Children Family History Reviewed: No Sibling(s) Family History Reviewed.: No Medication/Allergy Home Medications: Atorvastatin Calcium [Lipitor 40 mg Tablet] 40 mg PO DAILY 04/18/18 Clopidogrel Bisulfate [Plavix 75 mg Tablet] 75 mg PO DAILY 04/18/18 Cyclobenzaprine HCl [Flexeril 10 mg Tablet] 10 mg PO TIDP PRN 04/18/18 Divalproex Sodium [Depakote ER 250 mg Tablet] 500 mg PO QHS 04/18/18 Insulin Glargine,Hum.rec.anlog [Lantus (Pyxis) Insulin 100 Unit/1 ml 10 ml] 60 unit SUBCUT QHS 04/18/18 Insulin Lispro [Humalog] 10 unit SQ QID 04/18/18 Promethazine HCl [Phenergan 25 mg Tablet] 12.5 mg PO Q6HP PRN 04/18/18 Amlodipine Besylate [Norvasc 10 mg Tablet] 10 mg PO DAILY 10/21/18 Dapagliflozin Propanediol [Farxiga] 10 mg PO DAILY 10/21/18 Duloxetine HCl [Cymbalta 30 mg Capsule.dr] 60 mg PO DAILY 10/21/18 Exenatide Microspheres [Bydureon Bcise] 2 mg SQ TH@1000 10/21/18 Gabapentin [Neurontin 300 mg Capsule] 300 mg PO Q8 10/21/18 Glimepiride [Amaryl 4 mg Tablet] 4 mg PO DAILY 10/21/18 Hydrocodone/Acetaminophen [[place] 5-325 mg Tablet] 1 tab PO Q8HP PRN 10/21/18 Isosorbide Mononitrate [Imdur 30 mg Tablet.er] 15 mg PO DAILY 10/21/18 Losartan Potassium [Cozaar 50 mg Tablet] 50 mg PO DAILY 10/21/18 Naloxone HCl [Narcan] 4 mg NS ASDIR PRN 10/21/18 Oxybutynin Chloride [Oxybutynin Chloride ER] 5 mg PO BID 10/21/18 Pioglitazone HCl [Actos] 45 mg PO DAILY 10/21/18 Polyethylene Glycol 3350 [Miralax Powder 17 gm/Packet] 1 packet PO DAILY 10/21/18 Allergies/Adverse Reactions: aspirin Allergy (Unknown, Verified 06/01/18 18:00) cephalexin [From Keflex] Allergy (Unknown, Verified 06/01/18 18:00) Penicillins Adverse Reaction (Verified 06/01/18 18:00) Physical Exam Vital Signs: Temp Pulse Resp BP Pulse Ox 98.2 F 89 18 129/72 H 96 11/25/18 14:34 11/25/18 14:34 11/25/18 14:34 11/25/18 14:34 11/25/18 14:34 Intake & Output 11/24/18 11/25/18 11/26/18 06:59 06:59 06:59 Weight 93.2 kg General appearance: PRESENT: mild distress, obese Head exam: PRESENT: atraumatic Eye exam: PRESENT: EOMI Mouth exam: PRESENT: neck supple Teeth exam: PRESENT: poor dentation Neck exam: PRESENT: full ROM Respiratory exam: PRESENT: clear to auscultation darnell Cardiovascular exam: PRESENT: RRR GI/Abdominal exam: PRESENT: normal bowel sounds, soft Gentrourinary exam: PRESENT: other - bilateral groin scarring, swelling and drainage on the right with tenderness on palpation Extremities exam: PRESENT: full ROM Musculoskeletal exam: PRESENT: full ROM Neurological exam: PRESENT: alert, awake, oriented to time, oriented to situation Psychiatric exam: PRESENT: appropriate affect Assessment & Plan - Diagnosis (1) hydroadenitis of the shiraz Is this a current diagnosis for this admission?: Yes - Plan Summary Plan Summary: A/ 53 y/o female with IDDM, COPD, HTN, hx of CT and stroke, bilateral groin pain Physical exam reveals bilateral groin acute on chronic groin hydroadenitis, with right side drainage P/ NPO after MN tonight IVF Continue clindamycin IV Plan I&D of bilateral groin acute hydroadenitis tomorrow. Procedure, risk, benefits, complications d/w patient. She understands and decides to proceed.
[2018-11-25 17:07] LABS: ANION GAP 10 (5-19); BLOOD UREA NITROGEN 11 mg/dL (7-20); CALCIUM 9.2 mg/dL (8.4-10.2); CARBON DIOXIDE 24 mmol/L (22-30); CHLORIDE 101 mmol/L (98-107); GLUCOSE 251 mg/dL (75-110)
[2018-11-25 17:12] LABS: ABSOLUTE EOSINOPHILS # (AUTO) 0.2 10^3/uL (0.0-0.6); ABSOLUTE LYMPHOCYTES (AUTO) 2.3 10^3/uL (0.5-4.7); ABSOLUTE MONOCYTES (AUTO) 0.5 10^3/uL (0.1-1.4); ABSOLUTE NEUT (AUTO) 5.4 10^3/uL (1.7-8.2); BASOPHILS % (AUTO) 0.3 % (0-2); EOSINOPHILS % (AUTO) 2.3 % (0-6); HEMATOCRIT 38.3 % (36.0-47.0); LYMPHOCYTES % (AUTO) 27.5 % (13-45); MEAN CORPUSCULAR HEMOGLOBIN 27.6 pg (27.0-33.4); MEAN CORPUSCULAR VOLUME 81 fl (80-97); MONOCYTES % (AUTO) 5.5 % (3-13); PLATELET COUNT 216 10^3/uL (150-450); RED CELL DISTRIBUTION WIDTH 14.1 % (11.5-14.0); SEGMENTED NEUTROPHILS % (AUTO) 64.4 % (42-78); TOTAL CELLS COUNTED % (AUTO) 100 %; WHITE BLOOD COUNT 8.4 10^3/uL (4.0-10.5)
[2018-11-25] MEDS ORDERED: (PENDING PHARMACY ID) (Dapagliflozin Propanediol [Farxiga] 10 MG) PO SCH (17:30)
[2018-11-25] MEDS: HYDROCODONE/ACETAMINOPHEN 5-325 MG TABLET PO PRN (17:49)
[2018-11-25] MEDS: NORMAL SALINE 1000 ML 1,000 ML IV PRN (17:50)
[2018-11-25] MEDS: AMLODIPINE BESYLATE 10 MG TABLET PO SCH (17:59)
[2018-11-25] MEDS: GLIMEPIRIDE 4 MG TABLET PO SCH (17:59)
[2018-11-25] MEDS: DULOXETINE HCL 30 MG CAPSULE.DR PO SCH (17:59)
[2018-11-25] MEDS: ISOSORBIDE MONONITRATE 30 MG TAB.ER.24H PO SCH (17:59)
[2018-11-25] MEDS: LOSARTAN POTASSIUM 50 MG TABLET PO SCH (18:00)
[2018-11-25] MEDS ORDERED: (PENDING PHARMACY ID) (Oxybutynin Chloride [Oxybutynin Chloride Er] 5 MG) PO SCH (18:00)
--- NOTE | 2018-11-25 20:39 | EKG REPORT ---
SEVERITY:- NORMAL ECG - SINUS RHYTHM : Confirmed by: Christine Connolly MD 25-Nov-2018 20:38:53
--- NOTE | 2018-11-25 21:09 | PDOC H&P ---
History of Present Illness Admission Date/PCP: 11/25/18 13:27 JAY BENSON MD History of Present Illness: TIFFANY HUTCHINSON is a 53 year old female,She came to the office today for eval uation of swelling of the mons pubis, she thought the swelling is from [facility] that she uses for the treatment of diabetes, in the office she was evaluated, it was found to be abscess the mons pubis, she was admitted directly from the office to the hospital for further management. She will need incision and drainage, consultation is requested from surgery Past Medical History Cardiac Medical History: Reports: Congestive Heart Failure, Hypertension Pulmonary Medical History: Reports: Chronic Obstructive Pulmonary Disease (COPD) Neurological Medical History: Reports: Seizures Endocrine Medical History: Reports: Diabetes Mellitus Type 2 Psychiatric Medical History: Reports: Depression - anxiety Past Surgical History Past Surgical History: Reports: Section, Cholecystectomy Social History Smoking Status: Current Every Day Smoker Drugs: None Family History Family History: Reviewed & Not Pertinent Parental Family History Reviewed: Yes Children Family History Reviewed: Yes Sibling(s) Family History Reviewed.: Yes Medication/Allergy Home Medications: Atorvastatin Calcium [Lipitor 40 mg Tablet] 40 mg PO DAILY 04/18/18 Clopidogrel Bisulfate [Plavix 75 mg Tablet] 75 mg PO DAILY 04/18/18 Cyclobenzaprine HCl [Flexeril 10 mg Tablet] 10 mg PO TIDP PRN 04/18/18 Divalproex Sodium [Depakote ER 250 mg Tablet] 500 mg PO QHS 04/18/18 Insulin Glargine,Hum.rec.anlog [Lantus (Pyxis) Insulin 100 Unit/1 ml 10 ml] 60 unit SUBCUT QHS 04/18/18 Insulin Lispro [Humalog] 10 unit SQ QID 04/18/18 Promethazine HCl [Phenergan 25 mg Tablet] 12.5 mg PO Q6HP PRN 04/18/18 Amlodipine Besylate [Norvasc 10 mg Tablet] 10 mg PO DAILY 10/21/18 Duloxetine HCl [Cymbalta 30 mg Capsule.dr] 60 mg PO DAILY 10/21/18 Exenatide Microspheres [Bydureon Bcise] 2 mg SQ TH@1000 10/21/18 Gabapentin [Neurontin 300 mg Capsule] 300 mg PO Q8 10/21/18 Glimepiride [Amaryl 4 mg Tablet] 4 mg PO DAILY 10/21/18 Hydrocodone/Acetaminophen [[place] 5-325 mg Tablet] 1 tab PO Q8HP PRN 10/21/18 Isosorbide Mononitrate [Imdur 30 mg Tablet.er] 15 mg PO DAILY 10/21/18 Losartan Potassium [Cozaar 50 mg Tablet] 50 mg PO DAILY 10/21/18 Naloxone HCl [Narcan] 4 mg NS ASDIR PRN 10/21/18 Oxybutynin Chloride [Oxybutynin Chloride ER] 5 mg PO BID 10/21/18 Pioglitazone HCl [Actos] 45 mg PO DAILY 10/21/18 Polyethylene Glycol 3350 [Miralax Powder 17 gm/Packet] 1 packet PO DAILY 10/21/18 Clindamycin HCl 300 mg PO Q8H #15 capsule 11/27/18 Allergies/Adverse Reactions: aspirin Allergy (Unknown, Verified 06/01/18 18:00) cephalexin [From Keflex] Allergy (Unknown, Verified 06/01/18 18:00) Penicillins Adverse Reaction (Verified 06/01/18 18:00) Review of Systems Constitutional: ABSENT: chills, fever(s), headache(s), weight gain, weight loss Eyes: ABSENT: visual disturbances Ears: ABSENT: hearing changes Cardiovascular: ABSENT: chest pain, dyspnea on exertion, edema, orthropnea, palpitations Respiratory: ABSENT: cough, hemoptysis Gastrointestinal: ABSENT: abdominal pain, constipation, diarrhea, hematemesis, hematochezia, nausea, vomiting Genitourinary: ABSENT: dysuria, hematuria Musculoskeletal: ABSENT: joint swelling Neurological: ABSENT: abnormal gait, abnormal speech, confusion, dizziness, focal weakness, syncope Psychiatric: ABSENT: anxiety, depression, homidical ideation, suicidal ideation Endocrine: ABSENT: cold intolerance, heat intolerance, menstrual abnormalities, polydipsia, polyuria Hematologic/Lymphatic: ABSENT: easy bleeding, easy bruising, lymphadenopathy Physical Exam Vital Signs: Temp Pulse Resp BP Pulse Ox 98.5 F 95 19 122/62 94 11/25/18 19:41 11/25/18 19:41 11/25/18 19:41 11/25/18 19:41 11/25/18 19:41 Intake & Output 11/24/18 11/25/18 11/26/18 06:59 06:59 06:59 Intake Total 316 Balance 316 Weight 93.2 kg General appearance: PRESENT: no acute distress, well-developed, well-nourished Head exam: PRESENT: atraumatic, normocephalic Eye exam: PRESENT: conjunctiva pink, EOMI, PERRLA. ABSENT: scleral icterus Ear exam: PRESENT: normal external ear exam Mouth exam: PRESENT: moist, tongue midline Neck exam: PRESENT: full ROM Respiratory exam: PRESENT: clear to auscultation darnell Cardiovascular exam: PRESENT: RRR, +S2 Pulses: PRESENT: normal dorsalis pedis pul, +2 pedal pulses bilateral Vascular exam: PRESENT: normal capillary refill GI/Abdominal exam: PRESENT: normal bowel sounds, soft Rectal exam: PRESENT: deferred Neurological exam: PRESENT: alert, CN II-XII grossly intact Psychiatric exam: PRESENT: appropriate affect, normal mood Skin exam: PRESENT: dry, intact, warm, other - Swelling, erythema, of the mons pubis with pus discharge Results Laboratory Results: 11/25/18 15:54 11/25/18 15:54 11/25/18 11/25/18 15:54 15:54 WBC 8.4 RBC 4.70 Hgb 13.0 Hct 38.3 MCV 81 MCH 27.6 MCHC 34.0 RDW 14.1 H Plt Count 216 Seg Neutrophils % 64.4 Sodium 134.5 L Potassium 4.0 Chloride 101 Carbon Dioxide 24 Anion Gap 10 BUN 11 Creatinine 0.57 Est GFR ( Amer) > 60 Glucose 251 H Calcium 9.2 Assessment & Plan - 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
[2018-11-25] MEDS: DIVALPROEX SODIUM 250 MG TAB.SR.24H PO SCH (22:21)
[2018-11-25] MEDS: GABAPENTIN 300 MG CAPSULE PO SCH (22:21)
[2018-11-25] MEDS: ATORVASTATIN CALCIUM 40 MG TABLET PO SCH (22:22)
[2018-11-25] MEDS: OXYBUTYNIN CHLORIDE 5 MG TABLET PO SCH (22:22)
[2018-11-26] MEDS: HYDROCODONE/ACETAMINOPHEN 5-325 MG TABLET PO PRN ×3 (03:22→20:54)
[2018-11-26] MEDS: CLINDAMYCIN 600 MG/D5W RTU 600 MG/50 ML RTUPB IV SCH ×3 (05:42→21:05)
[2018-11-26] MEDS: GABAPENTIN 300 MG CAPSULE PO SCH ×3 (05:42→21:04)
[2018-11-26] MEDS ORDERED: ONDANSETRON HCL INJ/PF 4 MG/2 ML SDV ONE (06:30)
[2018-11-26] MEDS ORDERED: PROPOFOL INJ 200 MG/20 ML VIAL IV ONE (06:30)
[2018-11-26] MEDS ORDERED: DEXAMETHASONE SOD PHOSPHATE INJ 4 MG/1 ML VIAL ONE (06:30)
[2018-11-26] MEDS ORDERED: FENTANYL CITRATE INJ/PF 100 MCG/2 ML AMPUL ONE ×2 (06:30→11:27)
[2018-11-26] MEDS ORDERED: MIDAZOLAM 2 MG/2 ML INJ ONE (06:30)
[2018-11-26] MEDS ORDERED: KETAMINE HCL INJ 500 MG/10 ML VIAL ONE (10:09)
[2018-11-26] MEDS ORDERED: PROMETHAZINE HCL INJ 25 MG/1 ML VIAL IV PRN ×2 (10:30)
[2018-11-26] MEDS ORDERED: DIPHENHYDRAMINE HCL 50 MG/ML VIAL IV PRN (10:30)
[2018-11-26] MEDS ORDERED: FENTANYL CITRATE INJ/PF 100 MCG/2 ML AMPUL IV PRN ×3 (10:30)
[2018-11-26] MEDS ORDERED: MEPERIDINE HCL/PF INJ 25 MG/1 ML DISP.SYRIN IV PRN (10:30)
[2018-11-26] MEDS ORDERED: MORPHINE SULFATE 10 MG/ML INJ IV PRN (10:30)
[2018-11-26] MEDS ORDERED: ONDANSETRON HCL INJ/PF 4 MG/2 ML SDV IV PRN (10:30)
[2018-11-26] MEDS ORDERED: BUPIVACAINE HCL 0.25% /EPINEPHRINE INJ/PF 30 ML SDV INFIL ONE (10:43)
--- NOTE | 2018-11-26 11:16 | Operative Report ---
Nonrecallable Operative Report DATE OF SURGERY: 11/26/18 PREOPERATIVE DIAGNOSIS: hidraditinits bilateral groin POSTOPERATIVE DIAGNOSIS: Hidradenitis bilateral groins OPERATION: Excisional debridement of hidradenitis bilateral groins SURGEON: AMAN MILLER ANESTHESIA: LMAC TISSUE REMOVED OR ALTERED: Skin and suppurative tissue bilateral groins COMPLICATIONS: None ESTIMATED BLOOD LOSS: 10 cc INTRAOPERATIVE FINDINGS: See dictation PROCEDURE: Patient was brought to the operating room and awake alert stable condition placed the operative table supine position given local sedation during the procedure. He was placed in a frog-leg position and the both groins were prepped and draped in usual sterile fashion. The left groin was approached first. After anesthetizing the skin with quarter percent lidocaine with epinephrine a elliptical incision was made in the groin crease/labial crease from the top extending to the bottom of the introitus approximately 12 cm long by 4 cm wide Action was carried down through subcutaneous tissue and fatty tissue with the Bovie cautery When we fascia of the adductor muscles to be excised the specimen. Wound was then copiously irrigated with normal saline hemostasis was intact. A quarter inch Aj drain was placed at the base of the wound and closed the skin loosely over that with interrupted 2-0 nylon sutures. Attention was then turned to the left groin crease the the skin abscess was markedly smaller on that side. A small optical incision was raised made around the abscess in the left groin crease approximately 4 cm long by 3 cm wide. Dissection was carried down through subcutaneous tissue with Bovie cautery. The deep fatty tissue was excised with Bovie cautery and the skin was reapproximated with interrupted 2-0 nylon suture. A sterile dressing was then applied to both groins which completed the procedure. Estimated blood loss for the procedure was approximately 15 cc sponge and needle counts were correct x2 the patient was then transferred back to recovery room in stable condition.
[2018-11-26] MEDS: GLIMEPIRIDE 4 MG TABLET PO SCH (11:21)
[2018-11-26] MEDS: ISOSORBIDE MONONITRATE 30 MG TAB.ER.24H PO SCH (11:21)
[2018-11-26] MEDS: OXYBUTYNIN CHLORIDE 5 MG TABLET PO SCH ×2 (11:21→21:04)
[2018-11-26] MEDS: DULOXETINE HCL 30 MG CAPSULE.DR PO SCH (11:21)
[2018-11-26] MEDS: LOSARTAN POTASSIUM 50 MG TABLET PO SCH (11:21)
[2018-11-26] MEDS: AMLODIPINE BESYLATE 10 MG TABLET PO SCH (11:22)
[2018-11-26] MEDS: NORMAL SALINE 1000 ML 1,000 ML IV PRN (13:40)
--- NOTE | 2018-11-26 18:45 | PDOC PROGRESS REPORT ---
Subjective Progress Note for:: 11/26/18 Subjective:: Patient was seen by the surgeon, she underwent incision and drainage, the surgeon felt she has hidradenitis Reason For Visit: ABSCESS Physical Exam Vital Signs: Temp Pulse Resp BP Pulse Ox 98.3 F 79 18 96/54 L 96 11/26/18 15:14 11/26/18 15:14 11/26/18 15:14 11/26/18 15:14 11/26/18 15:14 Intake & Output 11/25/18 11/26/18 11/27/18 06:59 06:59 06:59 Intake Total 1466 2060 Output Total 0 1025 Balance 1466 1035 Weight 90 kg General appearance: PRESENT: no acute distress, well-developed, well-nourished Head exam: PRESENT: atraumatic, normocephalic Eye exam: PRESENT: conjunctiva pink, EOMI, PERRLA Ear exam: PRESENT: normal external ear exam Mouth exam: PRESENT: moist, tongue midline Neck exam: PRESENT: full ROM Respiratory exam: PRESENT: clear to auscultation darnell Cardiovascular exam: PRESENT: RRR, +S1, +S2 Pulses: PRESENT: normal dorsalis pedis pul, +2 pedal pulses bilateral Vascular exam: PRESENT: normal capillary refill GI/Abdominal exam: PRESENT: normal bowel sounds, soft Rectal exam: PRESENT: deferred Neurological exam: PRESENT: alert, awake, oriented to person, oriented to place, oriented to time, oriented to situation, CN II-XII grossly intact. ABSENT: motor sensory deficit Psychiatric exam: PRESENT: appropriate affect, normal mood Skin exam: PRESENT: dry, intact, warm Results Laboratory Results: 11/25/18 15:54 11/25/18 15:54 Assessment & Plan - Diagnosis (1) Vulval hidradenitis suppurativa Is this a current diagnosis for this admission?: Yes Plan: The surgeon felt patient has hidradenitis rather than arlene gangrene (2) T2DM (type 2 diabetes mellitus) Qualifiers: Diabetes mellitus lobsterman insulin use: without lobsterman use Diabetes mellitus complication status: with neurologic complications Diabetes mellitus complication detail: with other neurological complication Qualified Code(s): E11.49 - Type 2 diabetes mellitus with other diabetic neurological complication Is this a current diagnosis for this admission?: Yes
[2018-11-26] MEDS: NICOTINE 7 MG/24 HR PATCH.TD24 TD SCH (20:55)
[2018-11-26] MEDS: ATORVASTATIN CALCIUM 40 MG TABLET PO SCH (21:04)
[2018-11-26] MEDS: DIVALPROEX SODIUM 250 MG TAB.SR.24H PO SCH (21:04)
[2018-11-27] MEDS: CLINDAMYCIN 600 MG/D5W RTU 600 MG/50 ML RTUPB IV SCH ×2 (05:27→13:15)
[2018-11-27] MEDS: GABAPENTIN 300 MG CAPSULE PO SCH ×2 (05:28→13:15)
[2018-11-27] MEDS: HYDROCODONE/ACETAMINOPHEN 5-325 MG TABLET PO PRN ×2 (05:28→13:32)
[2018-11-27] MEDS: NORMAL SALINE 1000 ML 1,000 ML IV PRN (05:32)
--- NOTE | 2018-11-27 08:35 | PDOC PROGRESS REPORT ---
Subjective Progress Note for:: 11/27/18 Subjective:: No complaints of Reason For Visit: FOURNIERS GANGRENE Physical Exam Vital Signs: Temp Pulse Resp BP Pulse Ox 98.3 F 87 18 98/55 L 93 11/26/18 23:24 11/26/18 23:24 11/26/18 23:24 11/26/18 23:24 11/26/18 23:24 Intake & Output 11/26/18 11/27/18 11/28/18 06:59 06:59 06:59 Intake Total 1466 4260 Output Total 0 1425 Balance 1466 2835 Weight 90 kg 91.5 kg Gentrourinary exam: PRESENT: other - Bilateral inner groin sutures in place, minimal erythema, no drainage, no odor, presence of right inner groin Aj drain, minimal tenderness Results Laboratory Results: 11/25/18 15:54 11/25/18 15:54 Assessment & Plan - Diagnosis (1) hydroadenitis of the shiraz Is this a current diagnosis for this admission?: Yes - Plan Summary Plan Summary: Assessment/ Postoperative day #1 following bilateral in the groin debridement of hidradenitis supra edema Both sites appear well healing Presence of [place] drain in the right inner groin wound No odor or drainage present Plan/ Patient can be discharged to home at any time by our viewpoint Discharge to home with 10-day worth of oral antibiotics such as Augmentin or Cipro plus Flagyl Shower twice a day Do not remove the [place] drain on the right side Keep the absorbent pad at all time Follow-up with Dr. Flores in the office in 2 weeks No sexual activity for at least 3 weeks I will sign off. Thank you
[2018-11-27] MEDS: NICOTINE 7 MG/24 HR PATCH.TD24 TD SCH (09:45)
[2018-11-27] MEDS: DULOXETINE HCL 30 MG CAPSULE.DR PO SCH (09:46)
[2018-11-27] MEDS: OXYBUTYNIN CHLORIDE 5 MG TABLET PO SCH (09:46)
[2018-11-27] MEDS: ISOSORBIDE MONONITRATE 30 MG TAB.ER.24H PO SCH (09:47)
[2018-11-27] MEDS: GLIMEPIRIDE 4 MG TABLET PO SCH (09:48)
[2018-11-27] MEDS: LOSARTAN POTASSIUM 50 MG TABLET PO SCH (09:48)
[2018-11-27] MEDS: AMLODIPINE BESYLATE 10 MG TABLET PO SCH (09:49)
--- NOTE | 2018-11-27 17:00 | PDOC DISCHARGE SUMMARY ---
General - Admit/Disc Date/PCP Admission Date/Primary Care Provider: 11/25/18 13:27 JAY BENSON MD Discharge Date: 11/27/18 - Discharge Diagnosis (1) T2DM (type 2 diabetes mellitus) Is this a current diagnosis for this admission?: Yes (2) Vulval hidradenitis suppurativa Is this a current diagnosis for this admission?: Yes - Additional Information Resuscitation Status: Full Code Prescriptions: RX: Clindamycin HCl 300 mg PO Q8H #15 capsule Home Medications: RX: Atorvastatin Calcium [Lipitor 40 mg Tablet] 40 mg PO DAILY 04/18/18 RX: Clopidogrel Bisulfate [Plavix 75 mg Tablet] 75 mg PO DAILY 04/18/18 RX: Cyclobenzaprine HCl [Flexeril 10 mg Tablet] 10 mg PO TIDP PRN 04/18/18 RX: Divalproex Sodium [Depakote ER 250 mg Tablet] 500 mg PO QHS 04/18/18 RX: Insulin Glargine,Hum.rec.anlog [Lantus (Pyxis) Insulin 100 Unit/1 ml 10 ml] 60 unit SUBCUT QHS 04/18/18 RX: Insulin Lispro [Humalog] 10 unit SQ QID 04/18/18 RX: Promethazine HCl [Phenergan 25 mg Tablet] 12.5 mg PO Q6HP PRN 04/18/18 RX: Amlodipine Besylate [Norvasc 10 mg Tablet] 10 mg PO DAILY 10/21/18 RX: Duloxetine HCl [Cymbalta 30 mg Capsule.dr] 60 mg PO DAILY 10/21/18 RX: Exenatide Microspheres [Bydureon Bcise] 2 mg SQ TH@1000 10/21/18 RX: Gabapentin [Neurontin 300 mg Capsule] 300 mg PO Q8 10/21/18 RX: Glimepiride [Amaryl 4 mg Tablet] 4 mg PO DAILY 10/21/18 RX: Hydrocodone/Acetaminophen [[place] 5-325 mg Tablet] 1 tab PO Q8HP PRN 10/21/18 RX: Isosorbide Mononitrate [Imdur 30 mg Tablet.er] 15 mg PO DAILY 10/21/18 RX: Losartan Potassium [Cozaar 50 mg Tablet] 50 mg PO DAILY 10/21/18 RX: Naloxone HCl [Narcan] 4 mg NS ASDIR PRN 10/21/18 RX: Oxybutynin Chloride [Oxybutynin Chloride ER] 5 mg PO BID 10/21/18 RX: Pioglitazone HCl [Actos] 45 mg PO DAILY 10/21/18 RX: Polyethylene Glycol 3350 [Miralax Powder 17 gm/Packet] 1 packet PO DAILY 10/21/18 RX: Clindamycin HCl 300 mg PO Q8H #15 capsule 11/27/18 History of Present Illness History of Present Illness: TIFFANY HUTCHINSON is a 53 year old female,She came to the office today for evaluation of swelling of the mons pubis, she thought the swelling is from farxiga that she uses for the treatment of diabetes, in the office she was evaluated, it was found to be abscess the mons pubis, she was admitted directly from the office to the hospital for further management. She will need incision and drainage, consultation is requested from surgery Hospital Course Hospital Course: Patient was admitted for the management of abscess in the mons pubis, on a dmission arlene gangrene was considered a differential diagnosis because patient is on Farxiga, that class of drug is associated with Arlene gangrene. She was seen by the surgeon she was taken to the OR for incision and drainage. The surgeon felt postoperatively that the lesion is more consistent with hidradenitis . She was treated with IV antibiotic clindamycin, she will be discharged home today Physical Exam Vital Signs: Temp Pulse Resp BP Pulse Ox 98.5 F 88 18 114/63 93 11/27/18 11:32 11/27/18 11:32 11/27/18 11:32 11/27/18 11:32 11/27/18 11:32 Intake & Output 11/26/18 11/27/18 11/28/18 06:59 06:59 06:59 Intake Total 1466 4260 50 Output Total 0 1425 Balance 1466 2835 50 Weight 90 kg 91.5 kg General appearance: PRESENT: no acute distress, well-developed, well-nourished Head exam: PRESENT: atraumatic, normocephalic Eye exam: PRESENT: conjunctiva pink, EOMI, PERRLA Ear exam: PRESENT: normal external ear exam Mouth exam: PRESENT: moist, tongue midline Neck exam: PRESENT: full ROM Respiratory exam: PRESENT: clear to auscultation darnell Cardiovascular exam: PRESENT: RRR, +S1, +S2 Pulses: PRESENT: normal dorsalis pedis pul, +2 pedal pulses bilateral Vascular exam: PRESENT: normal capillary refill GI/Abdominal exam: PRESENT: normal bowel sounds, soft Rectal exam: PRESENT: deferred Neurological exam: PRESENT: alert, awake, oriented to person, oriented to place, oriented to time, oriented to situation, CN II-XII grossly intact Psychiatric exam: PRESENT: appropriate affect, normal mood Skin exam: PRESENT: dry, intact, warm. ABSENT: cyanosis, rash Results Laboratory Results: 11/25/18 15:54 11/25/18 15:54 Qualifiers - * PATIENT BEING DISCHARGED WITH ANY OF THE FOLLOWING DIAGNOSIS: No VTE patient discharged on overlapping Therapy?: No Reason(s) for not prescribing Overlap Therapy:: Not indicated Stroke Pt being discharged on Anti-thrombolytic therapy?: No Reason(s) for not prescribing Anti-thrombolytic therapy:: Not indicated Stroke Pt being discharged on Anti-coagulation therapy?: No Reason(s) for not prescribing Anti-coagulation therapy:: Not indicated Stroke Pt being discharged on Statins?: No Reason(s) for not prescribing Statins therapy:: Not indicated IN Pt being discharged on Aspirin therapy?: No Reason(s) for not prescribing Aspirin therapy:: Not indicated IN Pt being discharged on Statins?: No Reason(s) for not prescribing Statin therapy:: Not indicated IN Pt discharged ACEI/ARBS?: No Reason(s) for not prescribing ACEI/ARBS:: Not indicated Acute Heart Failure - Is this a Heart Failure Patient?: No c) Discharged on ARNI?: Yes
[2018-11-27 17:03] VITALS: BP 129/72
[2018-12-02] MEDS ORDERED: (PENDING PHARMACY ID) (Exenatide Microspheres [Bydureon Bcise] 2 MG) INJ SCH (10:00)
== END 2018-11-27 17:36 | disposition home or self-care (01) | DRG 572 ==
LOC: 5 13:27 → INTOOBSV 13:27 → OBSVTOIN 13:27
PROVIDERS: ADMIT Internal Medicine; ATTEND Internal Medicine
PROC: 0KBQ0ZZ Excision of Right Upper Leg Muscle, Open Approach (ICD-10-PCS; 2018-11-26)
PROC: 0JBM0ZZ Excision of Left Upper Leg Subcutaneous Tissue and Fascia, Open Approach (ICD-10-PCS; principal; 2018-11-26 11:00)
DX: L73.2 Hidradenitis suppurativa (principal); E11.49 Type 2 diabetes mellitus with other diabetic neurological complication; I11.0 Hypertensive heart disease with heart failure; I50.9 Heart failure, unspecified; R56.9 Unspecified convulsions; J44.9 Chronic obstructive pulmonary disease, unspecified; F32.9 Major depressive disorder, single episode, unspecified; F41.9 Anxiety disorder, unspecified; E66.9 Obesity, unspecified; F17.200 Nicotine dependence, unspecified, uncomplicated; Z79.02 Long term (current) use of antithrombotics/antiplatelets; Z79.4 Long term (current) use of insulin; Z86.73 Personal history of transient ischemic attack (TIA), and cerebral infarction without residual deficits; Z88.6 Allergy status to analgesic agent; Z88.1 Allergy status to other antibiotic agents; Z88.0 Allergy status to penicillin
CPT/HCPCS: 36415; 400; 80048; 83036; 85025; 87040; 93005; 93010; G0378; G0379; J1100; J2250; J2405; J2704; J3010; J3490; J7030

== ENCOUNTER 2018-12-02 19:30 | Emergency (ER) | payer MEDICAID ==
[2018-12-02] MEDS ORDERED: MORPHINE SULFATE 10 MG/ML INJ IV ONE (19:56)
[2018-12-02] MEDS ORDERED: ONDANSETRON HCL INJ/PF 4 MG/2 ML SDV IV ONE (19:57)
--- NOTE | 2018-12-02 19:58 | ER Document Report ---
ED Medical Screen (RME) - General Chief Complaint: Post Surgical Pain Stated Complaint: POST SURGICAL ISSUES Time Seen by Provider: 12/02/18 19:51 Primary Care Provider: JAY BENSON MD [Primary Care Provider] - Follow up as needed Information source: Patient Notes: Patient presents complaining of postsurgical pain. Patient had surgery 6 days ago for an infection to the groin area and mons pubis. Patient states that she was diagnosed with Rachael's gangrene although surgical report states that they consider this although felt her symptoms were more consistent with hidradenitis suppurativa TRAVEL OUTSIDE OF THE [place] IN LAST 30 DAYS: No - Related Data Allergies/Adverse Reactions: aspirin Allergy (Unknown, Verified 06/01/18 18:00) cephalexin [From Keflex] Allergy (Unknown, Verified 06/01/18 18:00) Penicillins Adverse Reaction (Verified 06/01/18 18:00) Past Medical History - Social History Frequency of alcohol use: None Drug Abuse: None - Past Medical History Cardiac Medical History: Reports: Hx Congestive Heart Failure, Hx Hypertension Pulmonary Medical History: Reports: Hx COPD Neurological Medical History: Reports: Hx Seizures Endocrine Medical History: Reports: Hx Diabetes Mellitus Type 2 Renal/ Medical History: Denies: Hx Peritoneal Dialysis Psychiatric Medical History: Reports: Hx Depression - anxiety Past Surgical History: Reports: Hx Section, Hx Cholecystectomy Physical Exam - Vital signs Vitals: Temp Pulse Resp BP Pulse Ox 99.1 F 93 18 135/88 H 98 12/02/18 19:39 12/02/18 19:39 12/02/18 19:39 12/02/18 19:39 12/02/18 19:39 - General Notes: Tenderness to bilateral inguinal area, drain present to right groin. Patient with tenderness to groin area with standing. Course - Vital Signs Vital signs: Temp Pulse Resp BP Pulse Ox 99.1 F 93 18 135/88 H 98 12/02/18 19:39 12/02/18 19:39 12/02/18 19:39 12/02/18 19:39 12/02/18 19:39 Doctor's Discharge - Discharge Referrals: JAY BENSON MD [Primary Care Provider] - Follow up as needed
[2018-12-02] MEDS ORDERED: NORMAL SALINE 1000 ML 1,000 ML IV ONE (20:29)
[2018-12-02] MEDS ORDERED: CLINDAMYCIN 900 MG/D5W RTU 900 MG/50 ML RTUPB IV ONE (20:30)
--- NOTE | 2018-12-02 20:31 | ER Document Report ---
ED General - General Chief Complaint: Post Surgical Pain Stated Complaint: POST SURGICAL ISSUES Time Seen by Provider: 12/02/18 19:51 Primary Care Provider: AMAN MILLER MD [ACTIVE STAFF] - Follow up in 3-5 days JAY BENSON MD [Primary Care Provider] - Follow up as needed Notes: Patient is a 53-year-old female with recent bilateral groin I&D that presents to the emergency department for chief complaint of groin pain. Patient states that she was recently in the hospital, and had surgery on her groin, for infection, has drains in place, and stitches still in place. She states that her pain has continued and she is worried that she may have worsening infection in her legs, she states she gets some tingling and pain shooting down her legs, worse on the right compared to the left. She does have a drain still in place. She currently rates her pain as a 10 out of 10 describes as throbbing and aching sensation that is constant. She does have hydrocodone at home, but she has not been able to keep it down, as it is causing her nausea and vomiting. She also is on clindamycin which is not been able to keep down either. She denies any any fevers, chills, night sweats, chest pain, shortness of breath, difficulty breathing. Denies any abdominal pain. No other complaints at this time. Past Medical History: Diabetes mellitus, hypertension Past Surgical History: Bilateral groin incision and drainage Social History: Admits to smoking cigarettes, denies alcohol or drug use. Family History: Reviewed and noncontributory for presenting illness Allergies: Reviewed, see documented allergy list. REVIEW OF SYSTEMS: Other than noted above, the 12 point review of systems was reviewed with the pat ient and were negative, all pertinent findings are included in the HPI. PHYSICAL EXAMINATION: Vital signs reviewed, nursing noted reviewed. GENERAL: Obese female, appears uncomfortable on exam HEAD: Atraumatic, normocephalic. EYES: Eyes appear normal, extraocular movements intact, sclera anicteric, conjunctiva are normal. ENT: nares patent, oropharynx clear without exudates. Moist mucous membranes. NECK: Normal range of motion, supple without lymphadenopathy LUNGS: Breath sounds clear to auscultation bilaterally and equal. No wheezes rales or rhonchi. HEART: Regular rate and rhythm without murmurs ABDOMEN: Soft, nontender, normoactive bowel sounds. No rebound, guarding, or rigidity. No masses appreciated. EXTREMITIES: Bilateral groins, have incisional wounds, with sutures in place, on the right is noted to be a Aj drain, there is scant purulent drainage noted on the right, but none on the left, there is some erythema around the right incisional wound, that appears to be candidal, and not cellulitic in nature. There is tenderness to palpation to both these areas. There is no thigh tenderness with palpation, no crepitus palpated. The rest the patient's extremity exam is grossly unremarkable, pulses intact distally, no significant edema. NEUROLOGICAL: No focal neurological deficits. Moves all extremities spontaneously Motor and sensory grossly intact on exam. PSYCH: Normal mood, normal affect. SKIN: Warm, Dry, normal turgor, no rashes or lesions noted on exposed skin TRAVEL OUTSIDE OF THE [place] IN LAST 30 DAYS: No - Related Data Allergies/Adverse Reactions: aspirin Allergy (Unknown, Verified 06/01/18 18:00) cephalexin [From Keflex] Allergy (Unknown, Verified 06/01/18 18:00) Penicillins Adverse Reaction (Verified 06/01/18 18:00) Past Medical History - General Information source: Patient - Social History Smoking Status: Former Smoker Frequency of alcohol use: None Drug Abuse: None Family History: Reviewed & Not Pertinent Patient has suicidal ideation: No Patient has homicidal ideation: No - Past Medical History Cardiac Medical History: Reports: Hx Congestive Heart Failure, Hx Hypertension Pulmonary Medical History: Reports: Hx COPD Neurological Medical History: Reports: Hx Seizures Endocrine Medical History: Reports: Hx Diabetes Mellitus Type 2 Renal/ Medical History: Denies: Hx Peritoneal Dialysis Psychiatric Medical History: Reports: Hx Depression - anxiety Past Surgical History: Reports: Hx Section, Hx Cholecystectomy Physical Exam - Vital signs Vitals: Temp Pulse Resp BP Pulse Ox 99.1 F 93 18 135/88 H 98 12/02/18 19:39 12/02/18 19:39 12/02/18 19:39 12/02/18 19:39 12/02/18 19:39 Course - Re-evaluation Re-evalutation: Patient seen and examined vital signs reviewed. Laboratory data and/or imaging were ordered as appropriate for the patient's presenting symptoms and complaint, with consideration of any critical or life threatening conditions that may be associated with their obtained history and exam as noted above. Patient was treated with IV fluids, IV analgesics and antiemetics, given a dose of IV clindamycin. Results were reviewed when available and demonstrated unremarkable blood work, no leukocytosis, obtain bilateral CT imaging of the lower extremities, to evaluate for deep tissue infection, and these were unremarkable for any acute findings concerning for that. The patient was re-evaluated and was stable, pain was improved. Her main con cern was that she was having nausea at home and unable to keep her pain medication down she states she has plenty at home, but not any antiemetics. Patient will be prescribed Zofran, and to follow-up with surgery. Evaluation was most consistent with postoperative pain, in the groins bilaterally. Results were discussed with the patient at this point, after careful consideration I feel that that patient can be discharged from the emergency department, the patient was educated treatments and reasons to return to the emergency department based on their presumed diagnosis as noted above, they were advised to followup with a primary care physician in 2-3 days. Patient was agreeable to plan of care. *Note is created using voice recognition software and may contain spelling, syntax or grammatical errors. Laboratory 12/02/18 12/02/18 12/02/18 20:39 20:39 20:39 WBC 8.0 RBC 4.64 Hgb 12.9 Hct 37.7 MCV 81 MCH 27.7 MCHC 34.1 RDW 13.8 Plt Count 229 Lymph % (Auto) 29.4 [place] % (Auto) 5.1 Eos % (Auto) 2.7 Baso % (Auto) 1.0 Absolute Neuts (auto) 5.0 Absolute Lymphs (auto) 2.4 Absolute Monos (auto) 0.4 Absolute Eos (auto) 0.2 Absolute Basos (auto) 0.1 Seg Neutrophils % 61.8 Sodium 133.6 L Potassium 3.8 Chloride 99 Carbon Dioxide 23 Anion Gap 12 BUN 10 Creatinine 0.58 Est GFR ( Amer) > 60 Est GFR (MDRD) Non-Af > 60 Glucose 278 H Lactic Acid 1.5 Calcium 9.2 Total Bilirubin 0.4 Direct Bilirubin 0.2 Neonat Total Bilirubin Not Reportable Neonat Direct Bilirubin Not Reportable Neonat Indirect Bili Not Reportable AST 21 ALT 24 Alkaline Phosphatase 175 H Total Protein 6.7 Albumin 3.9 [address] 12/02/18 20:29 IMPRESSION: 1. Mild inflammatory changes of the bilateral medial thigh soft tissues with foreign body material in this region, presumably postsurgical. 2. No drainable fluid collection or abscess. - Vital Signs Vital signs: Temp Pulse Resp BP Pulse Ox 98.1 F 89 17 117/65 93 12/02/18 23:05 12/02/18 23:05 12/02/18 23:05 12/02/18 23:05 12/02/18 23:05 - Laboratory Result Diagrams: 12/02/18 20:39 12/02/18 20:39 Laboratory results interpreted by me: 12/02/18 20:39 Sodium 133.6 L Glucose 278 H Alkaline Phosphatase 175 H Discharge - Discharge Clinical Impression: Postoperative pain Condition: Stable Disposition: HOME, SELF-CARE Additional Instructions: Please follow-up with your surgical team, as scheduled, if needed, you should call to move your appointment up. Continue to take your home prescribed pain medication, you will be discharged home with a dispense pack of a nausea medicine as well as a prescription. Please take this medication as directed. If you have further concerns, do not hesitate to return to the emergency department for further evaluation and management. Prescriptions: Ondansetron [Zofran Odt 4 mg Tablet] 1 tab PO Q8H PRN #15 tab.rapdis PRN Reason: For Nausea/Vomiting Referrals: JAY BENSON MD [Primary Care Provider] - Follow up as needed AMAN MILLER MD [ACTIVE STAFF] - Follow up in 3-5 days
[2018-12-02 20:54] LABS: ABSOLUTE BASOPHILS # (AUTO) 0.1 10^3/uL (0.0-0.2); ABSOLUTE EOSINOPHILS # (AUTO) 0.2 10^3/uL (0.0-0.6); ABSOLUTE LYMPHOCYTES (AUTO) 2.4 10^3/uL (0.5-4.7); ABSOLUTE MONOCYTES (AUTO) 0.4 10^3/uL (0.1-1.4); EOSINOPHILS % (AUTO) 2.7 % (0-6); HEMATOCRIT 37.7 % (36.0-47.0); HEMOGLOBIN 12.9 g/dL (12.0-15.5); LYMPHOCYTES % (AUTO) 29.4 % (13-45); MEAN CORPUSCULAR HEMOGLOBIN 27.7 pg (27.0-33.4); MEAN CORPUSCULAR HGB CONC 34.1 g/dL (32.0-36.0); MEAN CORPUSCULAR VOLUME 81 fl (80-97); MONOCYTES % (AUTO) 5.1 % (3-13); PLATELET COUNT 229 10^3/uL (150-450); RED BLOOD COUNT 4.64 10^6/uL (3.72-5.28); RED CELL DISTRIBUTION WIDTH 13.8 % (11.5-14.0); SEGMENTED NEUTROPHILS % (AUTO) 61.8 % (42-78); TOTAL CELLS COUNTED % (AUTO) 100 %
[2018-12-02] MEDS ORDERED: HYDROMORPHONE HCL INJ/PF 2 MG/ML AMPULE IV ONE (21:00)
[2018-12-02 21:11] LABS: ALBUMIN 3.9 g/dL (3.5-5.0); ALKALINE PHOSPHATASE 175 U/L (38-126); ANION GAP 12 (5-19); ASPARTATE AMINO TRANSFERASE 21 U/L (14-36); BILIRUBIN,DIRECT 0.2 mg/dL (0.0-0.4); BILIRUBIN,TOTAL 0.4 mg/dL (0.2-1.3); BLOOD UREA NITROGEN 10 mg/dL (7-20); CALCIUM 9.2 mg/dL (8.4-10.2); CARBON DIOXIDE 23 mmol/L (22-30); CHLORIDE 99 mmol/L (98-107); GLUCOSE 278 mg/dL (75-110); POTASSIUM 3.8 mmol/L (3.6-5.0); TOTAL PROTEIN 6.7 g/dL (6.3-8.2)
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
[2018-12-02] MEDS ORDERED: FLUCONAZOLE 100 MG TABLET PO ONE (22:41)
[2018-12-02] MEDS ORDERED: ONDANSETRON ODT 4 MG TAB (6 TAB/ER DISP) PO PRN (22:42)
[2018-12-02 23:10] VITALS: BP 117/65
== END 2018-12-02 23:16 | disposition home or self-care (01) ==
LOC: ER 19:30
DX: G89.18 Other acute postprocedural pain (principal); I11.0 Hypertensive heart disease with heart failure; I50.9 Heart failure, unspecified; E11.9 Type 2 diabetes mellitus without complications; J44.9 Chronic obstructive pulmonary disease, unspecified; F17.210 Nicotine dependence, cigarettes, uncomplicated; Z90.49 Acquired absence of other specified parts of digestive tract; Z88.0 Allergy status to penicillin; Z88.6 Allergy status to analgesic agent
CPT/HCPCS: 99283; 96375; 96365; 96366; 36415; 87040; 83690; 85025; 80053; 83605; 73701 ×2; J3490 ×2; J2270; J1170; J2405; J7030

== ENCOUNTER 2019-01-05 02:34 | Emergency (ER) | payer MEDICAID ==
[2019-01-05] MEDS ORDERED: ONDANSETRON HCL INJ/PF 4 MG/2 ML SDV IV ONE (02:58)
[2019-01-05] MEDS ORDERED: FENTANYL CITRATE INJ/PF 100 MCG/2 ML AMPUL IV ONE (02:58)
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
[2019-01-05 04:22] LABS: ABSOLUTE EOSINOPHILS # (AUTO) 0.1 10^3/uL (0.0-0.6); ABSOLUTE LYMPHOCYTES (AUTO) 1.8 10^3/uL (0.5-4.7); ABSOLUTE MONOCYTES (AUTO) 0.4 10^3/uL (0.1-1.4); ABSOLUTE NEUT (AUTO) 8.4 10^3/uL (1.7-8.2); BASOPHILS % (AUTO) 0.3 % (0-2); EOSINOPHILS % (AUTO) 0.7 % (0-6); HEMATOCRIT 37.4 % (36.0-47.0); HEMOGLOBIN 12.6 g/dL (12.0-15.5); LYMPHOCYTES % (AUTO) 16.7 % (13-45); MEAN CORPUSCULAR HEMOGLOBIN 27.9 pg (27.0-33.4); MEAN CORPUSCULAR HGB CONC 33.8 g/dL (32.0-36.0); MEAN CORPUSCULAR VOLUME 82 fl (80-97); MONOCYTES % (AUTO) 3.9 % (3-13); PLATELET COUNT 182 10^3/uL (150-450); RED BLOOD COUNT 4.53 10^6/uL (3.72-5.28); RED CELL DISTRIBUTION WIDTH 14.2 % (11.5-14.0); SEGMENTED NEUTROPHILS % (AUTO) 78.4 % (42-78); TOTAL CELLS COUNTED % (AUTO) 100 %; WHITE BLOOD COUNT 10.7 10^3/uL (4.0-10.5)
[2019-01-05 04:23] LABS: BILIRUBIN,URINE NEGATIVE (NEGATIVE); GLUCOSE, URINE >=500 mg/dL (NEGATIVE); KETONES,URINE NEGATIVE (NEGATIVE); LEUKOCYTE ESTERASE,URINE SMALL (NEGATIVE); NITRITE,URINE NEGATIVE (NEGATIVE); PROTEIN,URINE NEGATIVE (NEGATIVE); URINE SPECIFIC GRAVITY 1.011; UROBILINOGEN,URINE NEGATIVE mg/dL (<2.0)
[2019-01-05 04:25] LABS: APPEARANCE,URINE SLIGHTLY-CLOUDY; COLOR,URINE YELLOW
[2019-01-05 04:34] LABS: ALBUMIN 3.9 g/dL (3.5-5.0); ALKALINE PHOSPHATASE 134 U/L (38-126); ANION GAP 9 (5-19); ASPARTATE AMINO TRANSFERASE 19 U/L (14-36); BILIRUBIN,DIRECT 0.1 mg/dL (0.0-0.4); BILIRUBIN,TOTAL 0.3 mg/dL (0.2-1.3); BLOOD UREA NITROGEN 8 mg/dL (7-20); CALCIUM 9.5 mg/dL (8.4-10.2); CARBON DIOXIDE 23 mmol/L (22-30); CHLORIDE 101 mmol/L (98-107); GLUCOSE 324 mg/dL (75-110); POTASSIUM 3.8 mmol/L (3.6-5.0); TOTAL PROTEIN 6.8 g/dL (6.3-8.2)
[2019-01-05] MEDS ORDERED: MORPHINE SULFATE 10 MG/ML INJ IV ONE (04:53)
--- NOTE | 2019-01-05 06:07 | RADIOLOGY REPORT (SQ) ---
CLINICAL HISTORY: abdominal injury/trauma, pain. CREAT 0.55 COMPARISON: None. TECHNIQUE: CT ABDOMEN PELVIS WITH IV CONTRAST on 01/05/2019 3:00 AM CDT This exam was performed according to our departmental dose-optimization program, which includes automated exposure control, adjustment of the mA and/or kV according to patient size and/or use of iterative reconstruction technique. FINDINGS: Lower lungs are clear. Abdomen: Liver is fatty in attenuation. There is no biliary dilatation. Cholecystectomy was performed. There is a tiny duodenal diverticulum. The pancreas and spleen are normal in appearance. Alignment and left kidney are normal. There is moderate. Abdominal aorta is normal in course and caliber without aneurysm. There is no free air. There is no retroperitoneal adenopathy. Pelvis: There is no bowel obstruction. Urinary bladder is unremarkable. There is no free fluid. Uterus is normal in size. Appendix is not clearly seen. There is a slightly complex right ovarian cyst measuring 5.4 cm. Skeleton: There are no acute osseous findings. No suspicious bony lesions. IMPRESSION: No definite acute process. Right renal atrophy. 5.4 cm indeterminate ovarian cyst. Recommend prompt follow-up with pelvic US. Reference: J Am Ba Radiol 2013;10:675-681
[2019-01-05 06:44] VITALS: BP 126/66
== END 2019-01-05 06:35 | disposition home or self-care (01) ==
LOC: ER 02:34
DX: R10.84 Generalized abdominal pain (principal); R10.817 Generalized abdominal tenderness; Y04.2XXA Assault by strike against or bumped into by another person, initial encounter; W22.03XA Walked into furniture, initial encounter; Y93.89 Activity, other specified; M54.5 Low back pain; W22.01XA Walked into wall, initial encounter; N83.201 Unspecified ovarian cyst, right side; N93.9 Abnormal uterine and vaginal bleeding, unspecified; R11.0 Nausea; R49.0 Dysphonia; I25.10 Atherosclerotic heart disease of native coronary artery without angina pectoris; F17.200 Nicotine dependence, unspecified, uncomplicated; I10 Essential (primary) hypertension; J44.9 Chronic obstructive pulmonary disease, unspecified; E11.9 Type 2 diabetes mellitus without complications; Z79.899 Other long term (current) drug therapy; Z88.8 Allergy status to other drugs, medicaments and biological substances; Z88.1 Allergy status to other antibiotic agents
CPT/HCPCS: 99284; 96374; 96375; 86900; 86901; 36415; 87086; 86870; 86850; 85025; 87088; 80053; 81001; 87186; 74177; J3010; J2270; J2405

== ENCOUNTER → 2019-01-20 | Outpatient (CLI) | payer MEDICAID ==
--- NOTE | 2019-01-20 15:29 | RADIOLOGY REPORT (SQ) ---
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 TECHNIQUE: Post IV contrasted scanning from skull base through lung apices with review of bone, soft tissue and lung windows. Reconstructed coronal and sagittal MPR images reviewed. All images stored on PACS. All CT scanners at this facility use dose modulation, iterative reconstruction, and/or weight based d osing when appropriate to reduce radiation dose to as low as reasonably achievable (ALARA). [facility]: Dose Right [facility]: CareDose [facility]: Dose Right [facility]: Teradose 4D [facility]: [employer] CONTRAST TYPE AND DOSE: contrast/concentration: Isovue 350.00 mg/ml; Total Contrast Delivered: 75.0 ml; Total Saline Delivered: 55.0 ml RENAL FUNCTION: BUN 8 creatinine 0.55. RADIATION DOSE: . LIMITATIONS: None. FINDINGS: SKULL BASE: Intact. MAJOR SALIVARY GLANDS: No solid or cystic masses. No inflammatory changes. LYMPHADENOPATHY: No adenopathy. MUCOSAL MASSES OR ASYMMETRY: No mucosal masses or asymmetry. LARYNX/CORDS: Symmetric appearance. No abnormal findings. VASCULAR STRUCTURES: The major vessels are patent. LUNG APICES: Clear. BONES: Intact. THYROID: Normal size. No masses. PARANASAL SINUSES: Mucous membrane thickening in the left ethmoid sinuses. Mucosal nodule in the fredo or of the right maxillary sinus. OTHER: No other significant finding. IMPRESSION: NO SIGNIFICANT FINDING IN THE SOFT TISSUES OF THE NECK. TECHNICAL DOCUMENTATION: JOB ID: [id number] Quality ID # [id number]: Final reports with documentation of one or more dose reduction techniques (e.g., Au tomated exposure control, adjustment of the mA and/or kV according to patient size, use of iterative reconstruction technique) 2010 [employer]- All Rights Reserved Reading location - IP/workstation name: [email or web address]
== END ==
LOC: RAD 13:25
PROVIDERS: ATTEND Otolaryngology
DX: Q31.8 Other congenital malformations of larynx (principal)
CPT/HCPCS: 70491

== ENCOUNTER → 2019-01-25 | Outpatient (CLI) | payer MEDICAID ==
--- NOTE | 2019-01-25 09:07 | RADIOLOGY REPORT (SQ) ---
EXAM DESCRIPTION: LAITH SWALLOW COMPLETED DATE/TIME: 01/25/2019 8:55 am REASON FOR STUDY: DYSPHAGIA (R13.10) R13.10 DYSPHAGIA, UNSPECIFIED COMPARISON: None. TECHNIQUE: Videofluoroscopic swallowing examination was performed in conjunction with speech patholo gy. Videofluoroscopic imaging was obtained and reviewed and these are the findings: RADIATION DOSE: Fluoro time 2.32 minutes 1 images saved to PACS. LIMITATIONS: None FINDINGS: The patient was brought into the fluoro room and placed upright on a modified barium swall ow chair. The patient was then given multiple consistencies mixed with barium to swallow under live fluoroscopic video guidance. According to the Speech Pathologist there was laryngeal penetration wit h thin barium, without aspiration. All other consistencies were swallowed without incident. Please r efer to the speech pathology report for further details. IMPRESSION: LARYNGEAL PENETRATION WITH THIN BARIUM, WITHOUT ASPIRATION. PLEASE SEE SPEECH PATHOLOGIS T REPORT FOR OTHER FINDINGS AND RECOMMENDATIONS. COMMENT: None Quality ID [id number]: Final reports for procedures using fluoroscopy that document radiation exposure hudson enma, or exposure time and number of fluorographic images (if radiation exposure indices are not avail able) TECHNICAL DOCUMENTATION: JOB ID: [id number] [employer]- All Rights Reserved Reading location - IP/workstation name: [email or web address] [id number]
--- NOTE | 2019-01-25 09:32 | ST Modified Barium Swallow ---
Recommendation - Recommendations Recommendations: Recommend short course of dysphagia therapy due to pharyngeal residue, specifically in valleculae, and possibly reduced epiglottic movement. Patient may benefit from GI consult due to some concerns regarding esophageal function. 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 Bella Risks/Precautions: None Date of Onset: 03/13/18 - approximate onset date Reason for Referral: difficulty swallowing - History History obtained from: Patient -: Medical - per patient report: Patient states "I choke a lot", adding specifically on meats. States hermelinda tthis will happen several times per week. Also reports some coughing with meals during eating and drinking. Does complain of globus sensation, but points mid sternal region for this. The patient reports having a stroke approximately February 11, 2018, and reports noticing swallowing difficulties approximately 1 month after this. Patient also reports having ENT biopsy "something on my vocal cords", but reports biopsy came back negative. Patient did not report having reflux, but states that she was placed on reflux medications by her ENT. Patient reports no prior speech therapy or swallowing assessments. Medications: per patient report: insulin, plavix, flexeril, norco, zantac (generic), patient unable to give complete list of medications this day. Allergies: patient reports aspirin, penicillins, cephalexin allergies - Functional Status Prior Functional Status: INDEPENDENT: feeding - independnet Current Functional Limitations: feeding - coughing, globus sensation - Subjective Patient/caregiver goal(s): r/o struct. abnormality Cognitive-Linguistic Function: Functional Speech Intelligibility: WNL Current PO diet: Regular - patient is avoiding some specific meats Current symptoms: Coughing, c/o Globus sensation Pain: Patient reports, 0/5 - Objective Assessment: Upright, Left Lateral - Food Trials Used Food trials used: Thin liquids, Pureed, Regular The patient: Was Able to Self Feed - Oral-Motor Skills Velo-pharyngeal function: Unremarkable Laryngeal Function: hoarse, breathy voice - Assessment Oral prep: Normal Labial closure: Adequate Leakage: None Mastication: Adequate Lingual Movement: Normal Oral stage: Normal for this Procedure - Pharyngeal Stage Initiation of Pharyngeal Stage Reflex: Normal Decreased laryngeal elevation: No Reduced Velopharyngeal Closure: no Reduced pressure generation: Yes reduced tongue-based retraction: No Pre-swallow pooling in valleculae: None Pre-Swallow pooling in pyriforms: None Reduced Thyro-Hyoid approximation: Yes - mild Reduced epiglottic excursion: Yes - mild Multiple Swallows with: Ineffective Clearance Post-swallow residulas vallecular: Moderate Post-Swallow residuals in pyriforms: None - Esophageal Stage Esophageal Stage: Possible reduced movement of bolus through UES. - Fall Risk Assessment Medications/Conditions that increase fall risks include: Antidepressants, sedatives, anti-arrhythmic, diuretic, benzodiazipenes, neuroleptics. BP regulation problems, cardiac problems, balance or gait deficits, neurological problems. Is patient considered at risk for falls: no Fall Risk Actions Taken: No action needed - Treatment / Educational Needs: Treatment/Education Needs: Treatment consisted of patient education on the role of the Speech Pathologist. Patient's plan of care and golas were communicated as well as scheduling and attendance policies. Recommendations for initial home program were shared. Patient demonstrated understanding and verbalized agreement. - Impression/Summary Laryngeal Penetration: Yes - with thin liquids by straw sip only Tracheal Aspiration: no Patient presents with: Pharyngeal stage dysph., Mild-Moderate Risk of Aspiration: Mild Evaluation and Findings: Patient presents with mild pharyngeal phase dysphagia, characterized by reduced laryngeal elevation and epiglottic inversion, resulting in valleculae residue of solids (puree and regular). Flash penetration of thin liquids via straw sip only (not with cup sips) was seen, never reaching level of vocal folds. Also, some sign of stasis in UES region, this cleared within a few seconds of the swallow. - Recommendations Solid diet recommendations: Regular Liquid Diet Modification: Thin Dysphagia therapy with TRAPPER BIRD: yes, dysphagia therapy Reflux Precautions: Taught to Patient Recommended techniques: Small Bites and Sips Information, Precautions and Recommendations: Patient (Written), Patient (Verbal) Other recommendations: Patient voiced concern regarding esophageal function and family history of esophageal cancer. Recommended that patient follow up any esophageal concerns with a javascript front end developer. - Time Total Time: 30 - Plan of Care Summary: Recommend short course of dysphagia treatment due to pharyngeal phase deficits. Goals to be set by treating therapist. Strategies to optimize patient understanding include:: ongoing assessment of educational needs, implementation of educational strategies, and re-education. - - -: Thank you for the opportunity to work with this patient and his/her family. Should you have any questions about this patient's plan or progress, I can be reached at [phone].
== END ==
LOC: RAD 07:47
PROVIDERS: ATTEND Otolaryngology
DX: R13.10 Dysphagia, unspecified (principal)
CPT/HCPCS: 74230

== ENCOUNTER 2019-02-18 10:22 | Emergency (ER) | payer MEDICAID ==
--- NOTE | 2019-02-18 11:52 | ER Document Report ---
HPI - HPI Time Seen by Provider: 02/18/19 11:45 Pain Level: 5 Context: 53-year-old female presents the emergency department after a fall at home just prior to arrival. Patient states that she got tripped by her dogs, fell into a door latch, then fell and landed on her left arm. Did not strike her head or lose consciousness, not on anticoagulation. Patient states she has acute tenderness to the left forearm and to her left thumb. Patient is able to move her elbow and denies any elbow tenderness or any shoulder pain. No shortness of breath or chest pain. No other complaints - REPRODUCTIVE Reproductive: DENIES: : Past Medical History - Social History Smoking Status: Current Every Day Smoker Chew tobacco use (# tins/day): No Frequency of alcohol use: None Drug Abuse: None Family History: Reviewed & Not Pertinent Patient has suicidal ideation: No Patient has homicidal ideation: No - Past Medical History Cardiac Medical History: Reports: Hx Congestive Heart Failure, Hx Coronary Artery Disease, Hx Heart Attack - 2010, Hx Hypertension Pulmonary Medical History: Reports: Hx COPD Denies: Hx Asthma, Hx Bronchitis, Hx Pneumonia Neurological Medical History: Reports: Hx Cerebrovascular Accident - LAST YEAR, Hx Seizures Endocrine Medical History: Reports: Hx Diabetes Mellitus Type 2 Renal/ Medical History: Denies: Hx Peritoneal Dialysis Musculoskeletal Medical History: Reports Hx Arthritis - NECK Psychiatric Medical History: Reports: Hx Depression - anxiety Past Surgical History: Reports: Hx Section, Hx Cholecystectomy - Immunizations Hx Diphtheria, Pertussis, Tetanus Vaccination: Yes Hx Pneumococcal Vaccination: 04/06/17 Vertical Provider Document - CONSTITUTIONAL Notes: PHYSICAL EXAMINATION: Reviewed vital signs and charting by RN GENERAL: Alert, interacts well. No acute distress. HEAD: Normocephalic, atraumatic. EYES: Pupils equal and round. Extraocular movements intact. ENT: Oral mucosa moist, tongue midline. NECK: Full range of motion. Trachea midline. EXTREMITIES: Moves all 4 extremities spontaneously. Acute tenderness to palpation over the midshaft of the radius and ulna when squeezing together, edema to the left thumb at the DIP and the MCP with some edema, 2+ radial pulse, sensation intact light touch, brisk cap refill PSYCH: Normal affect, normal mood. SKIN: Warm, dry, normal turgor. No rashes or lesions noted. - INFECTION CONTROL TRAVEL OUTSIDE OF THE [place] IN LAST 30 DAYS: No Course - Re-evaluation Re-evalutation: 02/18/19 11:51 Will obtain a left forearm and left hand x-ray. 02/18/19 12:26 X-rays all negative. Most likely soft tissue injury. Will place patient in a sling. She is stable for discharge. - Vital Signs Vital signs: Temp Pulse Resp BP Pulse Ox 98.1 F 99 18 139/72 H 97 02/18/19 11:04 02/18/19 11:04 02/18/19 11:04 02/18/19 11:04 02/18/19 11:04 Discharge - Discharge Clinical Impression: Left arm pain, Pain of left thumb Fall Qualifiers: Encounter type: initial encounter Qualified Code(s): W19.XXXA - Unspecified fall, initial encounter Condition: Good Disposition: HOME, SELF-CARE Additional Instructions: You were seen in the emergency department for a fall. X-rays did not show any fractures or dislocations. You most likely suffered from soft tissue injury. I have placed you in a sling and you can use that for comfort. Please follow-up with your primary doctor in the next 1 to 2 weeks if you do not have any improvement with your symptoms. Please take Tylenol 1000 mg and/or Motrin 600 mg with food and/or milk for the next several days. Please return to the emergency department if you have paralysis of your arm, completely lose sensation, or you have any other concerning symptoms. Referrals: NATALEE ZAVALA DO [Primary Care Provider] - Follow up as needed
--- NOTE | 2019-02-18 12:12 | RADIOLOGY REPORT (SQ) ---
EXAM DESCRIPTION: FOREARM LEFT COMPLETED DATE/TIME: 02/18/2019 12:02 pm REASON FOR STUDY: fall, trauma COMPARISON: None. NUMBER OF VIEWS: Two views. TECHNIQUE: Two radiographic images acquired of the left forearm, including elbow and wrist in at [address] one projection. LIMITATIONS: None. FINDINGS: MINERALIZATION: Normal. BONES: No acute fracture. No osseous lesion or periosteal bone formation. SOFT TISSUES: No soft tissue swelling, radiopaque foreign body or subcutaneous emphysema. OTHER: No other finding. IMPRESSION: No acute osseous abnormality of the left radius and ulna. TECHNICAL DOCUMENTATION: JOB ID: [id number] [employer]- All Rights Reserved Reading location - IP/workstation name: [email or web address]
--- NOTE | 2019-02-18 12:14 | RADIOLOGY REPORT (SQ) ---
EXAM DESCRIPTION: HAND LEFT 3 VIEWS COMPLETED DATE/TIME: 02/18/2019 12:02 pm REASON FOR STUDY: fall, trauma COMPARISON: None. EXAM PARAMETERS: NUMBER OF VIEWS: Three views. TECHNIQUE: AP, lateral and oblique radiographic images acquired of the left hand. LIMITATIONS: None. FINDINGS: MINERALIZATION: Normal. BONES: No acute fracture or dislocation. JOINTS: No effusions. SOFT TISSUES: No soft tissue swelling or radiopaque foreign body. OTHER: No other finding. IMPRESSION: No acute osseous abnormality of the left hand. TECHNICAL DOCUMENTATION: JOB ID: [id number] [employer]- All Rights Reserved Reading location - IP/workstation name: [email or web address]
[2019-02-18 12:47] VITALS: BP 128/77
== END 2019-02-18 12:45 | disposition home or self-care (01) ==
LOC: ER 10:22
DX: M79.645 Pain in left finger(s) (principal); R60.0 Localized edema; W01.0XXA Fall on same level from slipping, tripping and stumbling without subsequent striking against object, initial encounter; F17.200 Nicotine dependence, unspecified, uncomplicated; I25.10 Atherosclerotic heart disease of native coronary artery without angina pectoris; I10 Essential (primary) hypertension; J44.9 Chronic obstructive pulmonary disease, unspecified; E11.9 Type 2 diabetes mellitus without complications
CPT/HCPCS: 99283

== ENCOUNTER 2019-02-22 20:09 | Emergency (ER) | payer MEDICAID ==
--- NOTE | 2019-02-22 20:35 | ER Document Report ---
ED General - General Stated Complaint: CHEST PAIN Time Seen by Provider: 02/22/19 20:25 Primary Care Provider: JAY BENSON MD [Primary Care Provider] - Follow up as needed Mode of Arrival: Medic Information source: Patient Notes: Patient is a 53-year-old female with past medical history of seizures presenting to the emergency department with chest pain and seizure-like activity. reports patient had a seizure approximately 30 minutes prior to arrival to the emergency department. She takes Depakote for her seizures. Last seizure was approximately 1 month ago. Incidentally she did have an endoscopy done yesterday by Dr. Lacy, states she has been having intermittent chest pain since this morning. TRAVEL OUTSIDE OF THE [place] IN LAST 30 DAYS: No - Related Data Allergies/Adverse Reactions: aspirin Allergy (Unknown, Verified 02/18/19 11:36) cephalexin [From Keflex] Allergy (Unknown, Verified 02/18/19 11:36) Penicillins Adverse Reaction (Verified 02/18/19 11:36) Past Medical History - General Information source: Patient - Social History Smoking Status: Current Every Day Smoker Frequency of alcohol use: None Drug Abuse: None Family History: Reviewed & Not Pertinent - Past Medical History Cardiac Medical History: Reports: Hx Congestive Heart Failure, Hx Coronary Artery Disease, Hx Heart Attack - 2010, Hx Hypertension Pulmonary Medical History: Reports: Hx COPD, Hx Pneumonia Denies: Hx Asthma, Hx Bronchitis Neurological Medical History: Reports: Hx Cerebrovascular Accident - LAST YEAR, Hx Seizures Endocrine Medical History: Reports: Hx Diabetes Mellitus Type 2 Renal/ Medical History: Denies: Hx Peritoneal Dialysis Musculoskeletal Medical History: Reports Hx Arthritis - NECK Psychiatric Medical History: Reports: Hx Depression - anxiety Past Surgical History: Reports: Hx Section, Hx Cholecystectomy - Immunizations Hx Diphtheria, Pertussis, Tetanus Vaccination: Yes Hx Pneumococcal Vaccination: 04/06/17 Review of Systems - Review of Systems Constitutional: No symptoms reported EENT: No symptoms reported Cardiovascular: Chest pain Respiratory: Cough Gastrointestinal: No symptoms reported Genitourinary: No symptoms reported Female Genitourinary: No symptoms reported Musculoskeletal: No symptoms reported Skin: No symptoms reported Hematologic/Lymphatic: No symptoms reported Neurological/Psychological: No symptoms reported Physical Exam - Vital signs Vitals: Resp Pulse Ox 15 95 02/22/19 20:14 02/22/19 20:14 - Notes Notes: PHYSICAL EXAMINATION: GENERAL: Well-nourished and in no acute distress. HEAD: Atraumatic, normocephalic. EYES: Pupils equal round and reactive to light, extraocular movements intact, conjunctiva are normal. ENT: Nares patent, oropharynx clear without exudates. Moist mucous membranes. NECK: Normal range of motion, supple without lymphadenopathy LUNGS: Breath sounds clear to auscultation bilaterally and equal. No wheezes rales or rhonchi. HEART: Regular rate and rhythm without murmurs ABDOMEN: Soft, nontender, nondistended abdomen. No guarding, no rebound. No masses appreciated. Female : deferred Musculoskeletal: Normal range of motion, no pitting or edema. No cyanosis. NEUROLOGICAL: Cranial nerves grossly intact. Normal speech, normal gait. Normal sensory, motor exams PSYCH: Normal mood, normal affect. SKIN: Warm, Dry, normal turgor, no rashes or lesions noted. Course - Re-evaluation Re-evalutation: Laboratory 02/22/19 02/22/19 02/22/19 20:20 20:20 20:20 WBC 15.1 H RBC 4.91 Hgb 13.6 Hct 39.9 MCV 81 MCH 27.7 MCHC 34.0 RDW 13.9 Plt Count 182 Lymph % (Auto) 10.1 L [place] % (Auto) 3.9 Eos % (Auto) 0.7 Baso % (Auto) 0.3 Absolute Neuts (auto) 12.8 H Absolute Lymphs (auto) 1.5 Absolute Monos (auto) 0.6 Absolute Eos (auto) 0.1 Absolute Basos (auto) 0.0 Seg Neutrophils % 85.0 H Sodium 138.6 Potassium 3.9 Chloride 103 Carbon Dioxide 22 Anion Gap 14 BUN 11 Creatinine 0.64 Est GFR ( Amer) > 60 Est GFR (MDRD) Non-Af > 60 Glucose 277 H Calcium 9.5 Total Bilirubin 0.7 Direct Bilirubin 0.2 Neonat Total Bilirubin Not Reportable Neonat Direct Bilirubin Not Reportable Neonat Indirect Bili Not Reportable AST 23 ALT 24 Alkaline Phosphatase 139 H Creatine Kinase 88 CK-MB (CK-2) 0.56 Troponin I < 0.012 Total Protein 7.3 Albumin 4.2 Valproic Acid 02/22/19 02/22/19 20:20 22:55 WBC RBC Hgb Hct MCV MCH MCHC RDW Plt Count Lymph % (Auto) [place] % (Auto) Eos % (Auto) Baso % (Auto) Absolute Neuts (auto) Absolute Lymphs (auto) Absolute Monos (auto) Absolute Eos (auto) Absolute Basos (auto) Seg Neutrophils % Sodium Potassium Chloride Carbon Dioxide Anion Gap BUN Creatinine Est GFR ( Amer) Est GFR (MDRD) Non-Af Glucose Calcium Total Bilirubin Direct Bilirubin Neonat Total Bilirubin Neonat Direct Bilirubin Neonat Indirect Bili AST ALT Alkaline Phosphatase Creatine Kinase CK-MB (CK-2) Troponin I < 0.012 Total Protein Albumin Valproic Acid < 10.0 L Chest X-Ray 02/22/19 22:12 IMPRESSION: Possible left basilar pneumonia. copyright 2010 [employer]- All Rights Reserved EKG shows a sinus tachcardia, rate of 107, QTC 491, no ST segment elevations or depressions. Cardiac workup has been negative. Pneumonia noted on CXR. Depakote level also subtherapeutic. Depakote dose given, pt admits to missing depakote doses recently. Pt reports feeling improved after several hour stay in the ED. Will follow up with PCP. Stable for D/C home. The patient's emergency department workup and current diagnosis were explained to the patient and or family. Follow-up instructions were provided. Medications if prescribed were discussed. Instructions for when to return to the emergency department including specific worrisome symptoms were discussed with the patient and/or family. - Vital Signs Vital signs: Temp Pulse Resp BP Pulse Ox 18 123/69 96 02/22/19 21:01 02/22/19 21:01 02/22/19 21:01 - Laboratory Result Diagrams: 02/22/19 20:20 02/22/19 20:20 Laboratory results interpreted by me: 02/22/19 02/22/19 02/22/19 20:20 20:20 20:20 WBC 15.1 H Lymph % (Auto) 10.1 L Absolute Neuts (auto) 12.8 H Seg Neutrophils % 85.0 H Glucose 277 H Alkaline Phosphatase 139 H Valproic Acid < 10.0 L Discharge - Discharge Clinical Impression: Subtherapeutic Depakote level, Seizure Chest pain Qualifiers: Chest pain type: unspecified Qualified Code(s): R07.9 - Chest pain, unspecified Pneumonia Qualifiers: Pneumonia type: due to unspecified organism Laterality: left Lung location: unspecified part of lung Qualified Code(s): J18.9 - Pneumonia, unspecified organism Condition: Stable Disposition: HOME, SELF-CARE Additional Instructions: You were seen in the emergency department with concerns for seizure-like activity and chest pain. Your cardiac work-up today was unremarkable to include 2- troponins and a normal EKG. Your chest x-ray did show a small area of pneumonia. We will start you on antibiotics for this. Please take all medications as prescribed. Your Depakote level was subtherapeutic meaning it is not showing up in your bloodstream, you need to take Depakote as prescribed. Please follow-up with your primary care doctor for recheck in 1 to 2 days. Prescriptions: Benzonatate [Tessalon Perles 100 mg Capsule] 100 mg PO Q8HP PRN #30 capsule PRN Reason: Levofloxacin [Levaquin 750 mg Tablet] 750 mg PO DAILY #5 tablet Lidocaine HCl [Xylocaine 2% Viscous Soln 20 ml Udcup] 15 ml PO Q8H #6 udc Referrals: JAY BENSON MD [Primary Care Provider] - Follow up as needed
[2019-02-22] MEDS ORDERED: MORPHINE SULFATE 10 MG/ML INJ IV ONE (20:36)
[2019-02-22] MEDS ORDERED: ONDANSETRON HCL INJ/PF 4 MG/2 ML SDV IV ONE (20:37)
[2019-02-22 20:38] LABS: ABSOLUTE EOSINOPHILS # (AUTO) 0.1 10^3/uL (0.0-0.6); ABSOLUTE MONOCYTES (AUTO) 0.6 10^3/uL (0.1-1.4); EOSINOPHILS % (AUTO) 0.7 % (0-6); TOTAL CELLS COUNTED % (AUTO) 100 %
[2019-02-22 20:44] LABS: ABSOLUTE LYMPHOCYTES (AUTO) 1.5 10^3/uL (0.5-4.7); ABSOLUTE NEUT (AUTO) 12.8 10^3/uL (1.7-8.2); BASOPHILS % (AUTO) 0.3 % (0-2); HEMATOCRIT 39.9 % (36.0-47.0); HEMOGLOBIN 13.6 g/dL (12.0-15.5); LYMPHOCYTES % (AUTO) 10.1 % (13-45); MEAN CORPUSCULAR HEMOGLOBIN 27.7 pg (27.0-33.4); MEAN CORPUSCULAR VOLUME 81 fl (80-97); MONOCYTES % (AUTO) 3.9 % (3-13); PLATELET COUNT 182 10^3/uL (150-450); RED BLOOD COUNT 4.91 10^6/uL (3.72-5.28); RED CELL DISTRIBUTION WIDTH 13.9 % (11.5-14.0); WHITE BLOOD COUNT 15.1 10^3/uL (4.0-10.5)
[2019-02-22 20:57] LABS: ALBUMIN 4.2 g/dL (3.5-5.0); ALKALINE PHOSPHATASE 139 U/L (38-126); ANION GAP 14 (5-19); ASPARTATE AMINO TRANSFERASE 23 U/L (14-36); BILIRUBIN,DIRECT 0.2 mg/dL (0.0-0.4); BILIRUBIN,TOTAL 0.7 mg/dL (0.2-1.3); BLOOD UREA NITROGEN 11 mg/dL (7-20); CALCIUM 9.5 mg/dL (8.4-10.2); CARBON DIOXIDE 22 mmol/L (22-30); CHLORIDE 103 mmol/L (98-107); CREATINE KINASE 88 U/L (30-135); GLUCOSE 277 mg/dL (75-110); POTASSIUM 3.9 mmol/L (3.6-5.0); TOTAL PROTEIN 7.3 g/dL (6.3-8.2)
[2019-02-22 21:03] VITALS: BP 123/69
[2019-02-22 21:09] LABS: CREATINE KINASE MB 0.56 ng/mL (<4.55)
[2019-02-22 21:13] LABS: TROPONIN I < 0.012 ng/mL
[2019-02-22] MEDS ORDERED: DIVALPROEX SODIUM 500 MG TAB.SR.24H PO ONE (21:34)
[2019-02-22] MEDS ORDERED: LIDOCAINE 2% VISCOUS SOLN 20 ML UDCUP PO ONE (22:03)
[2019-02-22] MEDS ORDERED: METOCLOPRAMIDE HCL ORAL SOLN 10 MG/10 ML UDCUP PO ONE (22:03)
[2019-02-22] MEDS ORDERED: MAG HYDROX/AL HYDROX/SIMETH SUSP 30 ML UDCUP PO ONE (22:03)
--- NOTE | 2019-02-22 22:46 | RADIOLOGY REPORT (SQ) ---
EXAM DESCRIPTION: XR CHEST 1 VIEW COMPLETED DATE/TME: 02/22/2019 22:12 CLINICAL HISTORY: 53 years, Female, chest pain COMPARISON: None. NUMBER OF VIEWS: TECHNIQUE: LIMITATIONS: None. FINDINGS: There may be patchy infiltrate at the left lung base, raising the possibility of pneumonia. The lungs are otherwise clear. The heart and mediastinum are unremarkable. Pulmonary vascularity appears normal. IMPRESSION: Possible left basilar pneumonia. copyright 2010 [employer]- All Rights Reserved
[2019-02-23] MEDS ORDERED: BENZONATATE 100 MG CAPSULE PO ONE (00:38)
[2019-02-23] MEDS ORDERED: LEVOFLOXACIN 750 MG TABLET PO ONE (00:41)
--- NOTE | 2019-02-23 13:37 | EKG REPORT ---
SEVERITY:- ABNORMAL ECG - SINUS TACHYCARDIA BORDERLINE INFERIOR Q WAVES ABNRM R PROG, CONSIDER ASMI OR LEAD PLACEMENT BORDERLINE PROLONGED QT INTERVAL : Confirmed by: Armen Iverson MD 23-Feb-2019 13:36:36
== END 2019-02-23 01:56 | disposition home or self-care (01) ==
LOC: ER 20:09
DX: J18.9 Pneumonia, unspecified organism (principal); J44.0 Chronic obstructive pulmonary disease with (acute) lower respiratory infection; R56.9 Unspecified convulsions; T42.6X6A Underdosing of other antiepileptic and sedative-hypnotic drugs, initial encounter; Z91.14 Patient's other noncompliance with medication regimen; R07.9 Chest pain, unspecified; R05 Cough; F17.200 Nicotine dependence, unspecified, uncomplicated; R00.0 Tachycardia, unspecified; I25.10 Atherosclerotic heart disease of native coronary artery without angina pectoris; I10 Essential (primary) hypertension; E11.9 Type 2 diabetes mellitus without complications; Z88.8 Allergy status to other drugs, medicaments and biological substances; Z88.1 Allergy status to other antibiotic agents
CPT/HCPCS: 93005; 99285; 96374; 96375; 36415; 82553; 82550; 85025; 80053; 84484; 80164; 71045; 93010; J3490 ×6; J2270; J2405

== ENCOUNTER 2019-05-20 16:10 | Emergency (ER) | payer MEDICAID ==
[2019-05-20] MEDS ORDERED: NORMAL SALINE 1000 ML 1,000 ML IV ONE (17:03)
[2019-05-20] MEDS ORDERED: ONDANSETRON HCL INJ/PF 4 MG/2 ML SDV IV ONE (17:03)
[2019-05-20] MEDS ORDERED: MORPHINE SULFATE 10 MG/ML INJ IV ONE (17:04)
--- NOTE | 2019-05-20 17:04 | ER Document Report ---
ED Medical Screen (RME) - General Chief Complaint: Abdominal Pain Stated Complaint: ABDOMINAL PAIN Time Seen by Provider: 05/20/19 16:56 Primary Care Provider: JAY BENSON MD [Primary Care Provider] - Follow up as needed TRAVEL OUTSIDE OF THE [place] IN LAST 30 DAYS: No - HPI Notes: 05/20/19 17:03 Patient is a 53-year-old female who presents complaining of nausea, vomiting, belching, diarrhea, generalized abdominal pain that began today. She has been having flatulence still. Patient states that she has been running low-grade temperature as well. I have treated and performed a rapid initial assessment of this patient. A comprehensive ED assessment and evaluation of the patient, analysis of test results and completion of medical decision making process will be conducted by additional ED providers. PHYSICAL EXAMINATION: GENERAL: Well-appearing, well-nourished and in no acute distress. A&Ox4. Answers questions appropriately. Abdomen: Limited exam, generalized tenderness noted. - Related Data Allergies/Adverse Reactions: aspirin Allergy (Unknown, Verified 05/20/19 16:48) cephalexin [From Keflex] Allergy (Unknown, Verified 05/20/19 16:48) Penicillins Adverse Reaction (Verified 05/20/19 16:48) Past Medical History - Past Medical History Cardiac Medical History: Reports: Hx Congestive Heart Failure, Hx Coronary Artery Disease, Hx Heart Attack - 2010, Hx Hypertension Pulmonary Medical History: Reports: Hx COPD, Hx Pneumonia Denies: Hx Asthma, Hx Bronchitis Neurological Medical History: Reports: Hx Cerebrovascular Accident - LAST YEAR, Hx Seizures Endocrine Medical History: Reports: Hx Diabetes Mellitus Type 2 Renal/ Medical History: Denies: Hx Peritoneal Dialysis Musculoskeltal Medical History: Reports Hx Arthritis - NECK Psychiatric Medical History: Reports: Hx Depression - anxiety Past Surgical History: Reports: Hx Section, Hx Cholecystectomy - Immunizations Hx Diphtheria, Pertussis, Tetanus Vaccination: Yes Physical Exam - Vital signs Vitals: Temp Pulse Resp BP Pulse Ox 99.1 F 104 H 18 147/79 H 97 05/20/19 16:31 05/20/19 16:31 05/20/19 16:31 05/20/19 16:31 05/20/19 16:31 Course - Vital Signs Vital signs: Temp Pulse Resp BP Pulse Ox 99.1 F 104 H 18 147/79 H 97 05/20/19 16:31 05/20/19 16:31 05/20/19 16:31 05/20/19 16:31 05/20/19 16:31 Doctor's Discharge - Discharge Referrals: JAY BENSON MD [Primary Care Provider] - Follow up as needed
--- NOTE | 2019-05-20 17:44 | ER Document Report ---
ED General - General Chief Complaint: Abdominal Pain Stated Complaint: ABDOMINAL PAIN Time Seen by Provider: 05/20/19 16:56 Primary Care Provider: JAY BENSON MD [Primary Care Provider] - Follow up as needed Notes: Patient is a 53-year-old white female with a past medical history of COPD, diabetes, hypertension, hyperlipidemia with 8 prior sections, recent diagnosis of suspected uterine cancer who presents to the emergency department with a chief complaint of abdominal pain that began around 1:00 today. She states it is an upper abdominal and lower abdominal discomfort. States is associated with nausea, vomiting and diarrhea. She denies any known/recorded fevers. States that when she vomits it smells like "sewage". Denies any chills or night sweats. Denies any urinary complaints. PCP is Dr. Benson TRAVEL OUTSIDE OF THE [place] IN LAST 30 DAYS: No - Related Data Allergies/Adverse Reactions: aspirin Allergy (Unknown, Verified 05/20/19 16:48) cephalexin [From Keflex] Allergy (Unknown, Verified 05/20/19 16:48) Penicillins Adverse Reaction (Verified 05/20/19 16:48) Past Medical History - Social History Smoking Status: Current Every Day Smoker Family History: Reviewed & Not Pertinent Patient has suicidal ideation: No Patient has homicidal ideation: No - Past Medical History Cardiac Medical History: Reports: Hx Congestive Heart Failure, Hx Coronary Artery Disease, Hx Heart Attack - 2010, Hx Hypertension Pulmonary Medical History: Reports: Hx COPD, Hx Pneumonia Denies: Hx Asthma, Hx Bronchitis Neurological Medical History: Reports: Hx Cerebrovascular Accident - LAST YEAR, Hx Seizures Endocrine Medical History: Reports: Hx Diabetes Mellitus Type 2 Renal/ Medical History: Denies: Hx Peritoneal Dialysis Musculoskeletal Medical History: Reports Hx Arthritis - NECK Psychiatric Medical History: Reports: Hx Depression - anxiety Past Surgical History: Reports: Hx Section, Hx Cholecystectomy - Immunizations Hx Diphtheria, Pertussis, Tetanus Vaccination: Yes Hx Pneumococcal Vaccination: 04/06/17 Review of Systems - Review of Systems Gastrointestinal: Abdominal pain, Diarrhea, Nausea, Vomiting. denies: Constipation -: Yes All other systems reviewed and negative Physical Exam - Vital signs Vitals: Temp Pulse Resp BP Pulse Ox 99.1 F 104 H 18 147/79 H 97 05/20/19 16:31 05/20/19 16:31 05/20/19 16:31 02/14/20 16:31 05/20/19 16:31 - General General appearance: Appears well, Alert In distress: None - Respiratory Respiratory status: No respiratory distress Chest status: Nontender Breath sounds: Normal Chest palpation: Normal - Cardiovascular Rhythm: Regular Heart sounds: Normal auscultation - Abdominal Inspection: Other - Large midline deep prior surgical scarring from previous C- section Distension: No distension Bowel sounds: Normal Tenderness: Tender - Diffuse tenderness to palpation - Back Back: No: CVA tenderness - Neurological Neuro grossly intact: Yes Cognition: Normal Orientation: AAOx4 [place] Coma Scale Eye Opening: Spontaneous [place] Coma Scale Verbal: Oriented [place] Coma Scale Motor: Obeys Commands [place] Coma Scale Total: 15 Speech: Normal - Psychological Associated symptoms: Normal affect, Normal mood - Skin Skin Temperature: Warm Skin Moisture: Dry Skin Color: Normal Course - Re-evaluation Re-evalutation: 05/20/19 21:03 Reevaluation at this time, patient is resting comfortably in the room. She has a nonsurgical abdomen. CT scan showing no acute process per radiologist. She has a significant urinary tract infection in the urinalysis. Work-up otherwise largely unremarkable with the exception of a mildly elevated white blood cell count, likely in relation to a UTI. She has a rebound headache from the morphine, she will be given Toradol and monitored prior to discharge. Started on Bactrim p.o. here for the UTI. Will be sent home on a prescription for the same. Counseled her at length regarding the importance of outpatient follow-up with her primary care provider in 2 to 3 days for reevaluation. Advised that she return here or any ER immediately with any new, persistent or worsening symptoms. She verbalized understood and agreed. 05/20/19 21:04 - Vital Signs Vital signs: Temp Pulse Resp BP Pulse Ox 99.1 F 104 H 18 147/79 H 97 05/20/19 16:31 05/20/19 16:31 05/20/19 16:31 05/20/19 16:31 05/20/19 16:31 - Laboratory Result Diagrams: 05/20/19 18:40 05/20/19 18:40 Laboratory results interpreted by me: 05/20/19 05/20/19 05/20/19 18:00 18:40 18:40 WBC 12.4 H RDW 14.3 H Sodium 135.6 L Glucose 349 H Alkaline Phosphatase 168 H Urine Protein 30 H Urine Glucose (UA) >=500 H Urine Blood SMALL H Urine Nitrite (Reflex) POSITIVE H Leukocyte Esterase Rfl SMALL H Discharge - Discharge Clinical Impression: UTI (urinary tract infection) Qualifiers: Urinary tract infection type: site unspecified Hematuria presence: with hematuria Qualified Code(s): N39.0 - Urinary tract infection, site not s pecified; R31.9 - Hematuria, unspecified Condition: Stable Disposition: HOME, SELF-CARE Instructions: Urinary Tract Infection ([facility]) Additional Instructions: Follow-up with your regular doctor in 2 to 3 days for reevaluation. Return here or any ER immediately with any new, persistent or worsening symptoms. Prescriptions: Sulfamethoxazole/Trimethoprim [Bactrim Ds Tablet] 1 each PO BID #20 tablet Referrals: JAY BENSON MD [Primary Care Provider] - Follow up as needed
[2019-05-20 19:01] LABS: ABSOLUTE BASOPHILS # (AUTO) 0.1 10^3/uL (0.0-0.2); ABSOLUTE EOSINOPHILS # (AUTO) 0.2 10^3/uL (0.0-0.6); ABSOLUTE LYMPHOCYTES (AUTO) 3.3 10^3/uL (0.5-4.7); ABSOLUTE MONOCYTES (AUTO) 0.6 10^3/uL (0.1-1.4); ABSOLUTE NEUT (AUTO) 8.2 10^3/uL (1.7-8.2); BASOPHILS % (AUTO) 0.6 % (0-2); EOSINOPHILS % (AUTO) 1.7 % (0-6); HEMATOCRIT 42.5 % (36.0-47.0); HEMOGLOBIN 14.5 g/dL (12.0-15.5); LYMPHOCYTES % (AUTO) 26.9 % (13-45); MEAN CORPUSCULAR HEMOGLOBIN 27.7 pg (27.0-33.4); MEAN CORPUSCULAR HGB CONC 34.1 g/dL (32.0-36.0); MEAN CORPUSCULAR VOLUME 81 fl (80-97); MONOCYTES % (AUTO) 4.5 % (3-13); PLATELET COUNT 238 10^3/uL (150-450); RED BLOOD COUNT 5.22 10^6/uL (3.72-5.28); RED CELL DISTRIBUTION WIDTH 14.3 % (11.5-14.0); SEGMENTED NEUTROPHILS % (AUTO) 66.3 % (42-78); TOTAL CELLS COUNTED % (AUTO) 100 %; WHITE BLOOD COUNT 12.4 10^3/uL (4.0-10.5)
[2019-05-20 19:14] LABS: APPEARANCE,URINE SLIGHTLY-CLOUDY; BILIRUBIN,URINE NEGATIVE (NEGATIVE); COLOR,URINE YELLOW; GLUCOSE, URINE >=500 mg/dL (NEGATIVE); KETONES,URINE NEGATIVE (NEGATIVE); PROTEIN,URINE 30 mg/dL (NEGATIVE); URINE SPECIFIC GRAVITY 1.029; UROBILINOGEN,URINE NEGATIVE mg/dL (<2.0)
[2019-05-20 19:22] LABS: ALBUMIN 4.4 g/dL (3.5-5.0); ALKALINE PHOSPHATASE 168 U/L (38-126); ANION GAP 11 (5-19); ASPARTATE AMINO TRANSFERASE 27 U/L (14-36); BILIRUBIN,TOTAL 0.4 mg/dL (0.2-1.3); BLOOD UREA NITROGEN 13 mg/dL (7-20); CALCIUM 9.8 mg/dL (8.4-10.2); CARBON DIOXIDE 23 mmol/L (22-30); CHLORIDE 102 mmol/L (98-107); GLUCOSE 349 mg/dL (75-110); POTASSIUM 3.9 mmol/L (3.6-5.0); TOTAL PROTEIN 7.5 g/dL (6.3-8.2)
--- NOTE | 2019-05-20 20:43 | RADIOLOGY REPORT (SQ) ---
EXAM DESCRIPTION: CT ABDOMEN PELVIS WITH IV CONTRAST COMPLETED DATE/TME: 05/20/2019 17:03 CLINICAL HISTORY: 53 years, Female, Abd pain COMPARISON: Prior study from 01/05/2019 TECHNIQUE: Contrast enhanced CT of the abdomen/pelvis was performed. Images were obtained after the uneventful administration of 99 mL of Omnipaque 350 intravenous contrast. Images stored on PACS. All CT scanners at this facility use dose modulation, iterative reconstruction, and/or weight based dosing when appropriate to reduce radiation dose to as low as reasonably achievable (ALARA). [facility]: Dose Right [facility]: CareDose [facility]: Dose Right [facility]: Teradose 4D [facility]: [employer] LIMITATIONS: None. FINDINGS: Limited evaluation of the lower chest reveals mild bibasilar atelectasis. The liver is diffusely low in attenuation relative to the spleen. Areas of fatty sparing are noted about the periphery of the liver as well as adjacent to the gallbladder fossa. A fluid density lesion is noted immediately adjacent to the right hepatic lobe on image 41 of series 3, somewhat exophytic in configuration, similar to the previous exam dated 01/05/2019, potentially corresponding to a simple hepatic cyst. Otherwise, no suspicious liver lesions are appreciated. Spleen, pancreas, and both adrenal glands appear normal. The gallbladder is absent. Right kidney is atrophic. It contains a simple cyst about the interpolar region. Multifocal cortical scarring is noted about the right kidney as well. Left kidney enhances normally. No hydronephrosis or hydroureter. Urinary bladder is partially collapsed, thus its evaluation is limited. The uterus is anteverted. Previously detailed complex lesion located in the region of the right adnexa appears to have resolved in the interim. However, the right ovary does remain somewhat enlarged, measuring 4.1 x 3.6 cm in size. The colon appears diffusely fluid-filled. No wall thickening is noted. No evidence of bowel obstruction. The appendix is not visualized; however, no pericecal inflammatory changes are appreciated. Minimal calcifications are noted about the abdominal aorta and proximal iliac vessels. No suspicious lymphadenopathy or drainable fluid collections are appreciated. Bone windows show no destructive osseous lesions. IMPRESSION: Diffusely fluid-filled colon. Correlate for diarrhea. No other acute findings within the abdomen or pelvis. Hepatic steatosis. Interval resolution of pre-existing complex right ovarian cystic lesion which presumably corresponding to a hemorrhagic cyst. However, the right ovary does remain somewhat enlarged on this examination. Consider correlation with nonemergent pelvic ultrasound given the presence of persistent enlargement, if not already recently previously performed. TECHNICAL DOCUMENTATION: Quality ID # [id number]: Final reports with documentation of one or more dose reduction techniques (e.g., Automated exposure control, adjustment of the mA and/or kV according to patient size, use of iterative reconstruction technique) copyright 2011 [employer]- All Rights Reserved
[2019-05-20] MEDS ORDERED: KETOROLAC TROMETHAMINE INJ/PF 30 MG/1 ML SDV IV ONE (21:00)
[2019-05-20] MEDS ORDERED: SULFAMETHOXAZOLE/TRIMETHOPRIM 800-160 MG TABLET PO ONE (21:00)
[2019-05-20 22:24] VITALS: BP 130/78
== END 2019-05-20 22:04 | disposition home or self-care (01) ==
LOC: ER 16:10
DX: N39.0 Urinary tract infection, site not specified (principal); R31.9 Hematuria, unspecified; R51 Headache; R10.9 Unspecified abdominal pain; R11.2 Nausea with vomiting, unspecified; R19.7 Diarrhea, unspecified; F17.200 Nicotine dependence, unspecified, uncomplicated; J44.9 Chronic obstructive pulmonary disease, unspecified; E11.9 Type 2 diabetes mellitus without complications; I50.9 Heart failure, unspecified; I11.0 Hypertensive heart disease with heart failure; E78.5 Hyperlipidemia, unspecified; Z88.6 Allergy status to analgesic agent; Z88.0 Allergy status to penicillin; Z90.49 Acquired absence of other specified parts of digestive tract; I25.2 Old myocardial infarction
CPT/HCPCS: 99284; 96361; 96374; 96375; 36415; 87086; 83690; 85025; 87088; 80053; 81001; 87186; 74177; J1885; J2270; J2405; J3490; J7030

== ENCOUNTER → 2019-06-09 | Outpatient (CLI) | payer MEDICAID ==
--- NOTE | 2019-06-09 14:23 | RADIOLOGY REPORT (SQ) ---
EXAM DESCRIPTION: CAROTID DOPPLER COMPLETED DATE/TIME: 06/09/2019 12:20 pm REASON FOR STUDY: CAROTID STENOSIS I65.29 OCCLUSION AND STENOSIS OF UNSPECIFIED CAROTID ARTERY COMPARISON: CT soft tissue neck 01/20/2019 CT brain 11/14/2018 TECHNIQUE: Grayscale ultrasound, Doppler velocity and spectra, and color Doppler images acquired of the extra-cranial carotid and vertebral arteries. Images stored on PACS. LIMITATIONS: None. FINDINGS: RIGHT CAROTID CCA Velocities: Within normal limits. 1.0 m/sec ICA Velocities Peak systolic 2.7 m/s. End diastolic 1.0 m/s. Proximal ICA/CCA peak systolic ratio 3.4. Dense calcific shadowing plaque is present at the right carotid bifurcation. Immediately distal to fran schmitz shadowing plaque, velocities in the proximal right ICA suggest greater than 70% diameter stenosis. LEFT CAROTID CCA Velocities: Within normal limits. 1.5 m/sec ICA Velocities Peak systolic 1.5 m/s. End diastolic 0.66 m/s. Proximal ICA/CCA peak systolic ratio 1.9. There is soft plaque along the left proximal internal carotid artery causing 50 to 69% diameter narro wing by velocity criteria. VERTEBRAL ARTERIES: Antegrade flow. Normal waveforms. SUBCLAVIAN ARTERIES: Not evaluated OTHER: No other significant finding. IMPRESSION: Greater than 70% stenosis by velocity criteria, proximal right ICA due to calcific plaqu e. 50 to 69% diameter narrowing proximal left ICA from noncalcific plaque. COMMENT: Quality ID #[id number]: Velocity criteria are extrapolated from the diameter data as defined by fran schmitz Society of Radiologists in Ultrasound Consensus Conference. Radiology 2003: 229; 340-346. TECHNICAL DOCUMENTATION: JOB ID: [id number] [employer]- All Rights Reserved Reading location - IP/workstation name: [email or web address] / [email or web address]-
== END ==
LOC: SP 10:47
PROVIDERS: ATTEND Nurse Practitioner Adult Health
DX: I65.21 Occlusion and stenosis of right carotid artery (principal)
CPT/HCPCS: 93880

== ENCOUNTER 2019-06-18 18:30 | Emergency (ER) | payer MEDICAID ==
[2019-06-18] MEDS ORDERED: MORPHINE SULFATE 10 MG/ML INJ IV ONE (19:21)
[2019-06-18] MEDS ORDERED: SILVER SULFADIAZINE 1% CREAM 25 GM TP ONE (19:22)
[2019-06-18] MEDS ORDERED: OXYCODONE-ACETAMINOPHEN 5-325 MG TABLET PO ONE (19:22)
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
[2019-06-18 20:12] VITALS: BP 128/64
== END 2019-06-18 20:11 | disposition home or self-care (01) ==
LOC: ER 18:30
DX: T24.201A Burn of second degree of unspecified site of right lower limb, except ankle and foot, initial encounter (principal); X08.8XXA Exposure to other specified smoke, fire and flames, initial encounter; Y92.009 Unspecified place in unspecified non-institutional (private) residence as the place of occurrence of the external cause; E11.9 Type 2 diabetes mellitus without complications; I25.10 Atherosclerotic heart disease of native coronary artery without angina pectoris; I10 Essential (primary) hypertension; J44.9 Chronic obstructive pulmonary disease, unspecified; Z88.8 Allergy status to other drugs, medicaments and biological substances; Z88.1 Allergy status to other antibiotic agents
CPT/HCPCS: 99284; 96374; J2270; J3490

== ENCOUNTER 2019-06-30 17:32 | Emergency (ER) | payer MEDICAID ==
[2019-06-30 17:44] VITALS: BP 105/64
--- NOTE | 2019-06-30 19:53 | EKG REPORT ---
SEVERITY:- ABNORMAL ECG - SINUS TACHYCARDIA PROBABLE LEFT ATRIAL ABNORMALITY BORDERLINE INFERIOR Q WAVES CONSIDER ANTEROSEPTAL INFARCT BORDERLINE PROLONGED QT INTERVAL : Confirmed by: Armen Iverson MD 30-Jun-2019 19:53:06
== END 2019-06-30 18:38 | disposition left against medical advice (07) ==
LOC: ER 17:32
DX: Z53.21 Procedure and treatment not carried out due to patient leaving prior to being seen by health care provider (principal)
CPT/HCPCS: 93005; 93010

== ENCOUNTER 2019-10-24 18:48 | Emergency (ER) | payer MEDICAID ==
[2019-10-24 19:15] VITALS: BP 142/69
[2019-10-24] MEDS ORDERED: NORMAL SALINE 1000 ML 1,000 ML IV ONE ×2 (19:26→21:44)
[2019-10-24] MEDS ORDERED: ONDANSETRON HCL INJ/PF 4 MG/2 ML SDV IV ONE (19:26)
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
--- NOTE | 2019-10-24 20:41 | RADIOLOGY REPORT (SQ) ---
EXAM DESCRIPTION: X-ray, single view of the chest CLINICAL HISTORY: 54 years Female, pain sp fall COMPARISON: Single view of the chest February 22, 2019 FINDINGS: Lungs: Prominence of the basilar interstitial lung markings is again identified. Lung volumes and aeration have improved when compared the previous exam. No pneumothorax. No pleural effusion. Mediastinum: Cardiac and mediastinal silhouette are normal. Bones: Osseous structures are normal. No displaced fractures. IMPRESSION: No acute process.
--- NOTE | 2019-10-24 21:03 | EKG REPORT ---
SEVERITY:- NORMAL ECG - SINUS RHYTHM : Confirmed by: Brian Mcnair MD 24-Oct-2019 21:02:37
[2019-10-24 21:09] LABS: ABSOLUTE EOSINOPHILS # (AUTO) 0.2 10^3/uL (0.0-0.6); ABSOLUTE LYMPHOCYTES (AUTO) 2.4 10^3/uL (0.5-4.7); ABSOLUTE MONOCYTES (AUTO) 0.4 10^3/uL (0.1-1.4); ABSOLUTE NEUT (AUTO) 4.8 10^3/uL (1.7-8.2); BASOPHILS % (AUTO) 0.4 % (0-2); EOSINOPHILS % (AUTO) 2.3 % (0-6); HEMATOCRIT 39.8 % (36.0-47.0); HEMOGLOBIN 13.6 g/dL (12.0-15.5); LYMPHOCYTES % (AUTO) 30.6 % (13-45); MEAN CORPUSCULAR HEMOGLOBIN 27.8 pg (27.0-33.4); MEAN CORPUSCULAR HGB CONC 34.3 g/dL (32.0-36.0); MEAN CORPUSCULAR VOLUME 81 fl (80-97); MONOCYTES % (AUTO) 5.2 % (3-13); PLATELET COUNT 171 10^3/uL (150-450); RED CELL DISTRIBUTION WIDTH 13.4 % (11.5-14.0); SEGMENTED NEUTROPHILS % (AUTO) 61.5 % (42-78); TOTAL CELLS COUNTED % (AUTO) 100 %; WHITE BLOOD COUNT 7.9 10^3/uL (4.0-10.5)
[2019-10-24] MEDS ORDERED: HYDROCODONE/ACETAMINOPHEN 5-325 MG TABLET PO ONE (21:22)
[2019-10-24 21:25] LABS: ALBUMIN 4.3 g/dL (3.5-5.0); ALKALINE PHOSPHATASE 159 U/L (38-126); ANION GAP 8 (5-19); ASPARTATE AMINO TRANSFERASE 36 U/L (14-36); BILIRUBIN,TOTAL 0.5 mg/dL (0.2-1.3); BLOOD UREA NITROGEN 15 mg/dL (7-20); CALCIUM 9.2 mg/dL (8.4-10.2); CARBON DIOXIDE 26 mmol/L (22-30); CHLORIDE 100 mmol/L (98-107); GLUCOSE 370 mg/dL (75-110); POTASSIUM 3.6 mmol/L (3.6-5.0); TOTAL PROTEIN 7.3 g/dL (6.3-8.2)
[2019-10-24 21:28] LABS: APPEARANCE,URINE CLEAR; BILIRUBIN,URINE NEGATIVE (NEGATIVE); COLOR,URINE YELLOW; GLUCOSE, URINE >=500 mg/dL (NEGATIVE); KETONES,URINE NEGATIVE (NEGATIVE); LEUKOCYTE ESTERASE,URINE MODERATE (NEGATIVE); NITRITE,URINE POSITIVE (NEGATIVE); PROTEIN,URINE NEGATIVE (NEGATIVE); URINE SPECIFIC GRAVITY 1.024; UROBILINOGEN,URINE NEGATIVE mg/dL (<2.0)
== END 2019-10-24 21:52 | disposition left against medical advice (07) ==
LOC: ER 18:48
DX: N39.0 Urinary tract infection, site not specified (principal); E11.65 Type 2 diabetes mellitus with hyperglycemia; R05 Cough; R43.8 Other disturbances of smell and taste; R11.2 Nausea with vomiting, unspecified; F17.210 Nicotine dependence, cigarettes, uncomplicated; Z88.8 Allergy status to other drugs, medicaments and biological substances; Z88.0 Allergy status to penicillin; I11.0 Hypertensive heart disease with heart failure; I50.9 Heart failure, unspecified; I25.10 Atherosclerotic heart disease of native coronary artery without angina pectoris; I25.2 Old myocardial infarction; Z20.828 Contact with and (suspected) exposure to other viral communicable diseases
CPT/HCPCS: 93005; 99281; 96361; 96374; 36415; 85025; 87635; 80053; 81001; 84484; 71045; 93010; J2405; J7030; C9803

== ENCOUNTER 2020-01-04 20:41 | Emergency (ER) | payer OTHER, MEDICAID ==
[2020-01-04] MEDS ORDERED: ACETAMINOPHEN 325 MG TABLET PO ONE (22:20)
[2020-01-04] MEDS ORDERED: CYCLOBENZAPRINE HCL 10 MG TABLET PO ONE (22:20)
--- NOTE | 2020-01-04 23:20 | RADIOLOGY REPORT (SQ) ---
EXAM DESCRIPTION: XR HIP 2 OR MORE VIEWS COMPLETED DATE/TME: 01/04/2020 22:21 CLINICAL HISTORY: 54 years, Female, injury COMPARISON: None. NUMBER OF VIEWS: 2 TECHNIQUE: AP pelvis, single view right hip LIMITATIONS: None. FINDINGS: No radiographic evidence for acute fracture or dislocation. Correlate with any history of inability to ambulate. Mild degenerative change of the hips bilaterally IMPRESSION: No radiographic evidence for acute osseous abnormality. Correlate with any history of inability to ambulate copyright 2011 [employer]- All Rights Reserved
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
[2020-01-05 04:54] VITALS: BP 118/70
== END 2020-01-05 00:02 | disposition home or self-care (01) ==
LOC: ER 20:41
DX: S76.011A Strain of muscle, fascia and tendon of right hip, initial encounter (principal); M25.551 Pain in right hip; M79.651 Pain in right thigh; V49.40XA Driver injured in collision with unspecified motor vehicles in traffic accident, initial encounter; M62.830 Muscle spasm of back; I10 Essential (primary) hypertension; I25.10 Atherosclerotic heart disease of native coronary artery without angina pectoris; J44.9 Chronic obstructive pulmonary disease, unspecified; E11.9 Type 2 diabetes mellitus without complications; F17.200 Nicotine dependence, unspecified, uncomplicated
CPT/HCPCS: 99283

== ENCOUNTER 2020-01-15 22:43 | Emergency (ER) | payer MEDICAID, OTHER ==
[2020-01-15] MEDS ORDERED: MORPHINE SULFATE 10 MG/ML INJ IV ONE (23:03)
[2020-01-15] MEDS ORDERED: ONDANSETRON HCL INJ/PF 4 MG/2 ML SDV IV ONE (23:04)
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
--- NOTE | 2020-01-15 23:59 | RADIOLOGY REPORT (SQ) ---
INDICATION: fall, pain; bruising. COMPARISON: None CORRELATION: None TECHNIQUE: Noncontrast spiral axial CT images were obtained through the lumbar spine with multiplanar reconstructions. This exam was performed according to our departmental dose-optimization program, which includes automated exposure control, adjustment of the mA and/or kV according to patient size and/or use of iterative reconstruction techniques. FINDINGS: No acute displaced fracture is identified of the lumbar spine. Alignment is anatomic. No focal alignment abnormality is identified. The intervertebral joints and facets are within normal limits, for age. L1-L2: No significant disease. L2-L3: No significant disease. L3-L4: No significant disease. L4-L5: Mild broad-based disc bulging. No significant acquired spinal canal stenosis. Disc impinges mildly upon the neural foramen, bilaterally. L5-S1: No significant disease. Surrounding soft tissues are unremarkable. Mild vascular calcification. Hepatic steatosis IMPRESSION: No acute bony injury is seen to the lumbar spine. Degenerative changes
--- NOTE | 2020-01-16 00:28 | RADIOLOGY REPORT (SQ) ---
EXAM: XR Right Foot Complete, 3 or More Views EXAM DATE/TIME: 01/15/2020 11:32 PM CLINICAL HISTORY: The patient is 54 years old and is Female; fall, pain TECHNIQUE: Frontal, lateral and oblique views of the right foot. COMPARISON: No relevant prior studies available. FINDINGS: BONES/JOINTS: No acute fracture. No dislocation. Joint spaces are well-maintained. SOFT TISSUES: No significant soft tissue swelling visualized. IMPRESSION: No acute findings.
--- NOTE | 2020-01-16 00:31 | RADIOLOGY REPORT (SQ) ---
EXAM: XR Right Hip With Pelvis When Performed, 2 or 3 Views EXAM DATE/TIME: 01/15/2020 11:33 PM CLINICAL HISTORY: The patient is 54 years old and is Female; fall, pain TECHNIQUE: Two or three views of the right hip with pelvis when performed. COMPARISON: Radiographs of the right hip from 01/04/2020 FINDINGS: BONES/JOINTS: No acute fracture visualized. No dislocation. Bilateral hip joints are well-maintained. SOFT TISSUES: No significant soft tissue abnormalities visualized. IMPRESSION: No acute findings.
[2020-01-16] MEDS ORDERED: KETOROLAC TROMETHAMINE INJ/PF 30 MG/1 ML SDV IV ONE (01:47)
[2020-01-16] MEDS ORDERED: HYDROCODONE/ACETAMINOPHEN 5-325 MG (6 TAB/ER DISP) PO PRN (01:48)
[2020-01-16 02:15] VITALS: BP 123/67
== END 2020-01-16 02:14 | disposition home or self-care (01) ==
LOC: ER 22:43
DX: S20.222A Contusion of left back wall of thorax, initial encounter (principal); S30.0XXA Contusion of lower back and pelvis, initial encounter; M25.551 Pain in right hip; M79.671 Pain in right foot; W01.198A Fall on same level from slipping, tripping and stumbling with subsequent striking against other object, initial encounter; M47.816 Spondylosis without myelopathy or radiculopathy, lumbar region; F17.200 Nicotine dependence, unspecified, uncomplicated; I25.10 Atherosclerotic heart disease of native coronary artery without angina pectoris; I10 Essential (primary) hypertension; J44.9 Chronic obstructive pulmonary disease, unspecified; E11.9 Type 2 diabetes mellitus without complications; Z88.8 Allergy status to other drugs, medicaments and biological substances; Z88.1 Allergy status to other antibiotic agents
CPT/HCPCS: 99285; 96374; 96375; 82962; 73630; 73502; 72131; J1885; J2270; J2405

== ENCOUNTER → 2020-02-20 | Outpatient (CLI) | payer MEDICAID ==
--- NOTE | 2020-02-20 14:43 | RADIOLOGY REPORT (SQ) ---
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 TECHNIQUE: Sagittal and Axial imaging includes T1, T2, STIR and gradient echo sequences. Coronal T2/ HASTE imaging. LIMITATIONS: None. FINDINGS: VISUALIZED UPPER ABDOMEN: Relatively atrophic right kidney compared to the left. SEGMENTATION: No transitional anatomy. The lowest well-developed disc space is labeled L5-S1. ALIGNMENT: Anatomic. VERTEBRAE: Intact. BONE MARROW: Normal. No marrow replacement or reactive changes. DISC SIGNAL: Normal. No significant abnormal signal or loss of height. POSTERIOR ELEMENTS: Generally intact. No pars defect evident. HARDWARE: None in the spine. CORD AND CONUS: Normal in size and signal intensity. Conus at the L1 level. SOFT TISSUES: No aortic aneurysm seen. No bulky retroperitoneal adenopathy or mass. No paraspinal mas s or fluid. L1-L2: No significant spinal stenosis or exit foraminal stenosis. L2-L3: No significant spinal stenosis or exit foraminal stenosis. L3-L4: No significant spinal stenosis or exit foraminal stenosis. L4-L5: Concentric disc bulging appears to minimally displace the traversing nerve roots bilaterally. No significant foraminal stenosis. L5-S1: No significant spinal stenosis or exit foraminal stenosis. LOWER THORACIC: Incompletely imaged. No stenosis seen. SACRUM: Visualized upper sacrum intact. OTHER: No other significant findings. IMPRESSION: 1. There is concentric disc bulging at L4-5 that minimally displaces the traversing ner ve roots. No foraminal stenosis. 2. Relative atrophy of the right kidney. TECHNICAL DOCUMENTATION: JOB ID: [id number] [employer]- All Rights Reserved Reading location - IP/workstation name: [email or web address]
== END ==
LOC: RAD 12:41
PROVIDERS: ATTEND Internal Medicine
DX: G83.4 Cauda equina syndrome (principal)
CPT/HCPCS: 72148